=== PATIENT | male | born 1965 | race Caucasian/White ===

== ENCOUNTER 2017-01-19 19:16 | Emergency (ER) | payer OTHER ==
[~2017-01-19] VITALS: Ht 185.4 cm; Wt 158.8 kg
[2017-01-19] MEDS ORDERED: TOPR25TA PO (19:34)
[2017-01-19] MEDS ORDERED: JANU100T PO (19:34)
[2017-01-19] MEDS ORDERED: INVO300T PO (19:34)
[2017-01-19] MEDS ORDERED: PLAV75TA38 PO (19:34)
[2017-01-19] MEDS ORDERED: ALLE180T33 PO (19:34)
[2017-01-19] MEDS ORDERED: METF1000 PO (19:34)
[2017-01-19] MEDS ORDERED: ATOR1TAB19 PO (19:34)
[2017-01-19] MEDS ORDERED: ZETI10TA2 PO (19:34)
[2017-01-19] MEDS ORDERED: ECOT81TA5 PO (19:34)
[2017-01-19] MEDS ORDERED: LOSA100T36 PO (19:34)
[2017-01-19] MEDS ORDERED: KETOROLAC 30 MG/ML VIAL (J1885) IV ONE (20:15)
[2017-01-19 20:18] LABS: INR 0.94
[2017-01-19 20:28] LABS: ANION GAP 8 MEQ/L (8-16); BLOOD UREA NITROGEN 11 MG/DL (7-18); CALCIUM LEVEL 8.6 MG/DL (8.5-10.1); CARBON DIOXIDE LEVEL 28 MEQ/L (21-32); CHLORIDE LEVEL 102 MEQ/L (98-107); CREATININE FOR GFR 1.12 MG/DL (0.70-1.30); GLOMERULAR FILTRATION RATE > 60.0 (>56); GLUCOSE, FASTING 157 MG/DL (70-105); POTASSIUM SERUM 3.4 MEQ/L (3.5-5.1); SODIUM LEVEL 138 MEQ/L (136-145)
[2017-01-19 20:46] LABS: BASO % 0.7 % (0.0-1.0); EOS # 0.5 K/mm3 (0.0-0.50); EOS % 7.8 % (0.0-3.0); LARGE UNSTAINED CELL # 0.1 K/mm3 (0.0-0.4); LYMPH # 1.6 K/mm3 (1.5-4.5); LYMPH % 24.4 % (24.0-44.0); MEAN CORPUSCULAR HEMOGLOBIN 30.2 pg (27.0-33.0); MEAN CORPUSCULAR HGB CONC 33.8 g/dl (32.0-36.5); MEAN CORPUSCULAR VOLUME 89.4 fl (80.0-96.0); MONO # 0.4 K/mm3 (0.0-0.8); MONO % 6.5 % (0.0-5.0); NEUTROPHILS # 3.7 K/mm3 (1.8-7.7); NEUTROPHILS % 59.6 % (36.0-66.0); PLATELET COUNT, AUTOMATED 208 k/mm3 (150-450); RED CELL DISTRIBUTION WIDTH 13.3 % (11.5-14.5); WHITE BLOOD COUNT 6.2 K/mm3 (4.0-10.0)
[2017-01-19] MEDS ORDERED: NS 500 ML IV ONE (21:15)
[2017-01-19] MEDS ORDERED: ISOVUE-370 76% 100ML VIAL (Q9967) As Ordered ONE (21:21)
--- NOTE | 2017-01-19 22:10 | REPUSA ---
CT angiogram of the chest Clinical statement: Chest pain and shortness of breath. Technique: Multiple axial CT images were obtained from the thoracic inlet through the upper abdomen a fter a bolus administration of nonionic intravenous contrast. Coronal and sagittal reconstructions we re also obtained. Comparison: 11/06/2015. Findings: The pulmonary arteries are well-opacified with contrast, with no intraluminal filling defec ts to suggest embolism. The thoracic aorta is unremarkable. Thyroid gland is within normal limits. Th ere is no thoracic lymphadenopathy. There are no pericardial or pleural effusions. The lungs are brody r. Limited imaging of the upper abdomen is unremarkable. There are no suspicious osseous lesions. Impression: Unremarkable CT examination of the chest. No evidence of pulmonary embolism.
[2017-01-19] MEDS ORDERED: KETO10TAB PO (23:41)
[2017-01-19 23:54] VITALS: BP 155/83
--- NOTE | 2017-01-20 08:22 | REP ---
PA and lateral chest: Comparisons are 02/09/2016 and 11/06/2015. The study is also compared with the chest CT for this same date. The lung malin are clear. The cardiac size is normal The lonny, mediastinum, and bony thorax are unremarkable. Impression: Negative PA and lateral chest. There is no interval change. Signed by Valdo Davis MD 01/20/2017 08:14 A
--- NOTE | 2017-01-20 21:41 | ECGEPIP ---
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
== END 2017-01-20 | disposition home or self-care (01) ==
LOC: M ED 20:03
DX: R07.81 Pleurodynia (principal)
CPT/HCPCS: 71020; 71275; 80048; 82550; 82553; 85025; 85610; 85730; 93005; 96374; 99284; J1885; Q9967

== ENCOUNTER → 2017-02-11 | Outpatient (CLI) | payer OTHER ==
[~2017-02-11] MED LIST: ALLE180T33 PO; ATOR1TAB19 PO; ECOT81TA5 PO; INVO300T PO; JANU100T PO; KETO10TAB PO; LOSA100T36 PO; METF1000 PO; PLAV75TA38 PO; TOPR25TA PO; ZETI10TA2 PO
[2017-02-11 08:34] LABS: MEAN CORPUSCULAR HEMOGLOBIN 29.8 pg (27.0-33.0); MEAN CORPUSCULAR HGB CONC 33.1 g/dl (32.0-36.5); MEAN CORPUSCULAR VOLUME 90.1 fl (80.0-96.0); RED CELL DISTRIBUTION WIDTH 13.6 % (11.5-14.5); WHITE BLOOD COUNT 8.3 K/mm3 (4.0-10.0)
[2017-02-11 08:55] LABS: ALBUMIN 3.5 GM/DL (3.2-5.2); ALKALINE PHOSPHATASE 67 U/L (45-117); ALT/SGPT 36 U/L (12-78); ANION GAP 8 MEQ/L (8-16); AST/SGOT 19 U/L (15-37); BILIRUBIN,TOTAL 0.7 MG/DL (0.2-1.0); BLOOD UREA NITROGEN 12 MG/DL (7-18); CALCIUM LEVEL 8.5 MG/DL (8.5-10.1); CARBON DIOXIDE LEVEL 28 MEQ/L (21-32); CHLORIDE LEVEL 105 MEQ/L (98-107); CHOLESTEROL LEVEL 165 MG/DL (<200); CREATININE FOR GFR 0.94 MG/DL (0.70-1.30); GLOMERULAR FILTRATION RATE > 60.0 (>56); GLUCOSE, FASTING 148 MG/DL (70-105); POTASSIUM SERUM 4.1 MEQ/L (3.5-5.1); SODIUM LEVEL 141 MEQ/L (136-145); TRIGLYCERIDES LEVEL 147 MG/DL (<150)
== END ==
LOC: M LAB 07:56
PROVIDERS: ATTEND Nurse Practitioner Family
DX: I10 Essential (primary) hypertension (principal)

== ENCOUNTER 2017-05-18 14:33 | Emergency (ER) | payer OTHER ==
[~2017-05-18] VITALS: Ht 185.4 cm; Wt 159.1 kg
[~2017-05-18 14:33] MED LIST changes: -METF1000 PO; +METF10004 PO; +PLAV1TAB2 PO; -PLAV75TA38 PO; -ZETI10TA2 PO; +ZETI10TA30 PO
[2017-05-18] MEDS ORDERED: TRIA0.022 (14:43)
[2017-05-18] MEDS ORDERED: PROAAER10 (14:43)
[2017-05-18] MEDS ORDERED: ASPI325T24 (14:43)
[2017-05-18] MEDS ORDERED: NS 1,000 ML IV ONE (15:30)
[2017-05-18 15:50] LABS: INR 0.94
[2017-05-18 15:53] LABS: BASO # 0.1 K/mm3 (0.0-0.2); BASO % 0.9 % (0.0-1.0); EOS # 0.9 K/mm3 (0.0-0.50); EOS % 6.9 % (0.0-3.0); LARGE UNSTAINED CELL # 0.2 K/mm3 (0.0-0.4); LARGE UNSTAINED CELL % 1.1 % (0.0-4.0); LYMPH % 13.5 % (24.0-44.0); MEAN CORPUSCULAR HEMOGLOBIN 30.4 pg (27.0-33.0); MEAN CORPUSCULAR HGB CONC 33.3 g/dl (32.0-36.5); MEAN CORPUSCULAR VOLUME 91.3 fl (80.0-96.0); MONO # 0.6 K/mm3 (0.0-0.8); MONO % 4.1 % (0.0-5.0); NEUTROPHILS # 9.9 K/mm3 (1.8-7.7); NEUTROPHILS % 73.4 % (36.0-66.0); PLATELET COUNT, AUTOMATED 323 k/mm3 (150-450); RED CELL DISTRIBUTION WIDTH 13.7 % (11.5-14.5); WHITE BLOOD COUNT 13.4 K/mm3 (4.0-10.0)
[2017-05-18 16:08] LABS: ALBUMIN 3.9 GM/DL (3.2-5.2); ALBUMIN/GLOBULIN RATIO 1.18 (1.00-1.93); ALKALINE PHOSPHATASE 69 U/L (45-117); ALT/SGPT 28 U/L (12-78); ANION GAP 9 MEQ/L (8-16); AST/SGOT 13 U/L (15-37); BILIRUBIN,DIRECT 0.1 MG/DL (0.0-0.2); BILIRUBIN,TOTAL 0.5 MG/DL (0.2-1.0); BLOOD UREA NITROGEN 14 MG/DL (7-18); CALCIUM LEVEL 9.3 MG/DL (8.5-10.1); CARBON DIOXIDE LEVEL 26 MEQ/L (21-32); CHLORIDE LEVEL 108 MEQ/L (98-107); CREATININE FOR GFR 1.07 MG/DL (0.70-1.30); GLOMERULAR FILTRATION RATE > 60.0 (>56); GLUCOSE, FASTING 145 MG/DL (70-105); POTASSIUM SERUM 4.4 MEQ/L (3.5-5.1); SODIUM LEVEL 143 MEQ/L (136-145); TOTAL PROTEIN 7.2 GM/DL (6.4-8.2)
[2017-05-18] MEDS ORDERED: ISOVUE-370 76% 100ML VIAL (Q9967) As Ordered ONE (16:47)
[2017-05-18 18:19] VITALS: BP 104/66
--- NOTE | 2017-05-18 18:27 | REP ---
CT ABDOMEN AND PELVIS WITH CONTRAST: HISTORY: Rectal bleeding. CONTRAST: Isovue-370, 100 mL. The liver, gallbladder, pancreas, spleen, adrenal glands and kidneys are normal in appearance. There is no mass, adenopathy or free fluid. The visualized lungs are clear. Normal CT abdomen. CT pelvis: The prostate gland and urinary bladder are normal in appearance. There is no mass, adenopathy or free fluid. A small right inguinal hernia containing fat is present. Degenerative change is present in the lumbar spine. IMPRESSION: Small right inguinal hernia. Signed by Ariel Cameron MD 05/18/2017 06:54 P
== END 2017-05-18 18:24 | disposition home or self-care (01) ==
LOC: M ED 14:33
DX: K62.5 Hemorrhage of anus and rectum (principal); I25.10 Atherosclerotic heart disease of native coronary artery without angina pectoris; I25.2 Old myocardial infarction; E78.4 Other hyperlipidemia; E11.9 Type 2 diabetes mellitus without complications; I10 Essential (primary) hypertension
CPT/HCPCS: 74177; 80048; 80076; 81001; 83605; 83690; 85025; 85610; 85730; 86850; 86900; 86901; 87507; 99283; Q9967

== ENCOUNTER 2017-06-27 19:59 | Emergency (ER) | payer OTHER ==
[~2017-06-27] VITALS: Ht 188 cm; Wt 156.8 kg
[~2017-06-27 19:59] MED LIST changes: +ASPI325T24; +PROAAER10; +TRIA0.022
[2017-06-27] MEDS ORDERED: ASPIRIN 325 MG TAB PO ONE (20:30)
[2017-06-27] MEDS ORDERED: MORPHINE 4 MG/ML 1ML SYRINGE IV ONE (20:30)
[2017-06-27 20:55] LABS: INR 0.95
[2017-06-27 21:16] LABS: ANION GAP 5 MEQ/L (8-16); BLOOD UREA NITROGEN 10 MG/DL (7-18); CALCIUM LEVEL 8.6 MG/DL (8.5-10.1); CARBON DIOXIDE LEVEL 29 MEQ/L (21-32); CHLORIDE LEVEL 106 MEQ/L (98-107); CREATININE FOR GFR 1.07 MG/DL (0.70-1.30); GLOMERULAR FILTRATION RATE > 60.0 (>56); GLUCOSE, FASTING 133 MG/DL (70-105); POTASSIUM SERUM 3.8 MEQ/L (3.5-5.1); SODIUM LEVEL 140 MEQ/L (136-145)
[2017-06-27] MEDS ORDERED: NS 500 ML IV ONE (21:30)
[2017-06-27 21:34] LABS: ADD MANUAL DIFFER YES; MEAN CORPUSCULAR HEMOGLOBIN 26.1 pg (27.0-33.0); MEAN CORPUSCULAR HGB CONC 31.4 g/dl (32.0-36.5); MEAN CORPUSCULAR VOLUME 83.3 fl (80.0-96.0); PLATELET COUNT, AUTOMATED 334 k/mm3 (150-450); RED CELL DISTRIBUTION WIDTH 13.7 % (11.5-14.5); WHITE BLOOD COUNT 10.1 K/mm3 (4.0-10.0)
[2017-06-27] MEDS ORDERED: ISOVUE-370 76% 100ML VIAL (Q9967) As Ordered ONE (21:36)
--- NOTE | 2017-06-27 22:10 | REPUSA ---
CT angiogram of the chest Clinical statement: Chest pain and shortness of breath. Technique: Multiple axial CT images were obtained from the thoracic inlet through the upper abdomen a fter a bolus administration of nonionic intravenous contrast. Coronal and sagittal reconstructions we re also obtained. No comparison is available. Findings: The pulmonary arteries are well-opacified with contrast, with no intraluminal filling defec ts to suggest embolism. The thoracic aorta is unremarkable. Thyroid gland is within normal limits. Th ere is no enlarged thoracic lymphadenopathy, although numerous subcentimeter lymph nodes are seen wit hin the mediastinum. There are no pericardial or pleural effusions. The lungs are clear. Limited imag ing of the upper abdomen is unremarkable. There are no suspicious osseous lesions. Impression: Unremarkable CT examination of the chest. No evidence of pulmonary embolism.
[2017-06-27 22:31] LABS: EOSINOPHILS 5 % (0-5)
[2017-06-27 22:35] LABS: HYPOCHROMASIA 1+
[2017-06-27 22:36] LABS: POLYCHROMASIA 2+
[2017-06-27 22:37] LABS: NUCLEATED RED BLOOD CELL 1 % (0-0)
[2017-06-28 02:11] VITALS: BP 128/60
--- NOTE | 2017-06-28 07:43 | REP ---
Clinical: Chest pain . Comparison: 01/19/2017 . Findings: The mediastinum and cardiac silhouette are stable and within normal limits for portable technique. The lung malin are clear without acute consolidation, effusion, or pneumothorax. Skeletal structures are intact. Impression: No acute cardiopulmonary process appreciated. Signed by Federico Urena MD 06/28/2017 07:35 A
--- NOTE | 2017-06-28 19:26 | ECGEPIP ---
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
--- NOTE | 2017-06-28 19:29 | ECGEPIP ---
Stationary ECG Study 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
== END 2017-06-28 02:14 | disposition home or self-care (01) ==
LOC: M ED 19:59
DX: R07.81 Pleurodynia (principal); Z87.891 Personal history of nicotine dependence; I25.10 Atherosclerotic heart disease of native coronary artery without angina pectoris; I10 Essential (primary) hypertension; E78.4 Other hyperlipidemia
CPT/HCPCS: 71010; 71275; 80048; 82550; 82553; 85025; 85610; 85730; 93005; 99285; Q9967

== ENCOUNTER → 2017-09-27 | Outpatient (CLI) | payer OTHER ==
[2017-09-27 08:13] LABS: MEAN CORPUSCULAR HEMOGLOBIN 20.6 pg (27.0-33.0); MEAN CORPUSCULAR HGB CONC 27.8 g/dl (32.0-36.5); MEAN CORPUSCULAR VOLUME 74.1 fl (80.0-96.0); PLATELET COUNT, AUTOMATED 305 10^3/uL (150-450); RED CELL DISTRIBUTION WIDTH 17.7 % (11.5-14.5); WHITE BLOOD COUNT 8.6 10^3/uL (4.0-10.0)
[2017-09-27 08:35] LABS: ALBUMIN 3.7 GM/DL (3.2-5.2); ALBUMIN/GLOBULIN RATIO 1.06 (1.00-1.93); ALKALINE PHOSPHATASE 73 U/L (45-117); ALT/SGPT 20 U/L (12-78); ANION GAP 8 MEQ/L (8-16); AST/SGOT 11 U/L (7-37); BILIRUBIN,TOTAL 0.5 MG/DL (0.2-1.0); BLOOD UREA NITROGEN 16 MG/DL (7-18); CALCIUM LEVEL 8.1 MG/DL (8.5-10.1); CARBON DIOXIDE LEVEL 24 MEQ/L (21-32); CHLORIDE LEVEL 109 MEQ/L (98-107); CHOLESTEROL LEVEL 151 MG/DL (<200); CREATININE FOR GFR 1.04 MG/DL (0.70-1.30); GLOMERULAR FILTRATION RATE > 60.0 (>56); GLUCOSE, FASTING 160 MG/DL (70-105); POTASSIUM SERUM 4.2 MEQ/L (3.5-5.1); SODIUM LEVEL 141 MEQ/L (136-145); TOTAL PROTEIN 7.2 GM/DL (6.4-8.2); TRIGLYCERIDES LEVEL 89 MG/DL (<150)
== END ==
LOC: M LAB 07:43
PROVIDERS: ATTEND Nurse Practitioner Family
DX: E11.9 Type 2 diabetes mellitus without complications (principal); E78.2 Mixed hyperlipidemia

== ENCOUNTER → 2018-06-07 | Outpatient (CLI) | payer OTHER ==
[2018-06-07 07:49] LABS: HEMATOCRIT 36.2 % (42.0-52.0); HEMOGLOBIN 10.3 g/dl (13.5-17.5); MEAN CORPUSCULAR HEMOGLOBIN 20.2 pg (27.0-33.0); MEAN CORPUSCULAR HGB CONC 28.5 g/dl (32.0-36.5); PLATELET COUNT, AUTOMATED 293 10^3/uL (150-450); RED CELL DISTRIBUTION WIDTH 17.4 % (11.5-14.5); WHITE BLOOD COUNT 8.5 10^3/uL (4.0-10.0)
[2018-06-07 08:22] LABS: ALBUMIN 3.5 GM/DL (3.2-5.2); ALBUMIN/GLOBULIN RATIO 0.97 (1.00-1.93); ALKALINE PHOSPHATASE 62 U/L (45-117); ALT/SGPT 20 U/L (12-78); ANION GAP 7 MEQ/L (8-16); AST/SGOT 10 U/L (7-37); BILIRUBIN,TOTAL 0.6 MG/DL (0.2-1.0); BLOOD UREA NITROGEN 14 MG/DL (7-18); CALCIUM LEVEL 8.4 MG/DL (8.5-10.1); CARBON DIOXIDE LEVEL 27 MEQ/L (21-32); CHLORIDE LEVEL 108 MEQ/L (98-107); CHOLESTEROL LEVEL 144 MG/DL (<200); GLOMERULAR FILTRATION RATE > 60.0 (>56); GLUCOSE, FASTING 139 MG/DL (70-100); HDL CHOLESTEROL 59 MG/DL (>40); LDL CHOLESTEROL 67.6 MG/DL (<100); NON-HDL-C 85 MG/DL; POTASSIUM SERUM 4.3 MEQ/L (3.5-5.1); PROSTATIC SPECIFIC AG MONITOR 0.38 NG/ML (< 4.0); SODIUM LEVEL 142 MEQ/L (136-145); TOTAL PROTEIN 7.1 GM/DL (6.4-8.2); TRIGLYCERIDES LEVEL 87 MG/DL (<150)
== END ==
LOC: M LAB 07:26
DX: E78.2 Mixed hyperlipidemia (principal); E11.9 Type 2 diabetes mellitus without complications; Z12.5 Encounter for screening for malignant neoplasm of prostate

== ENCOUNTER → 2018-10-24 | Outpatient (CLI) | payer OTHER ==
[~2018-10-24] MED LIST changes: -ASPI325T24; +ASPI325T25; +CALCTAB29 PO; -LOSA100T36 PO; +LOSA100T50 PO; +MULT1TAB10 PO; -PROAAER10; +PROAAER10 INH; -TOPR25TA PO; +TOPR25TA13 PO; +VITA500T PO
[2018-10-24 13:19] LABS: BASO # 0.1 10^3/uL (0.0-0.2); BASO % 0.9 % (0.0-1.0); EOS # 0.8 10^3/uL (0.0-0.50); EOS % 8.6 % (0.0-3.0); HEMATOCRIT 45.3 % (42.0-52.0); HEMOGLOBIN 14.4 g/dl (13.5-17.5); LYMPH # 1.8 10^3/uL (1.5-4.5); LYMPH % 21.1 % (24.0-44.0); MEAN CORPUSCULAR HEMOGLOBIN 28.4 pg (27.0-33.0); MEAN CORPUSCULAR HGB CONC 31.8 g/dl (32.0-36.5); MEAN CORPUSCULAR VOLUME 89.3 fl (80.0-96.0); MONO # 0.6 10^3/uL (0.0-0.8); MONO % 6.6 % (0.0-5.0); NEUTROPHILS # 5.5 10^3/uL (1.8-7.7); NEUTROPHILS % 62.6 % (36.0-66.0); PLATELET COUNT, AUTOMATED 275 10^3/uL (150-450); RED BLOOD COUNT 5.07 10^6/uL (4.30-6.10); WHITE BLOOD COUNT 8.7 10^3/uL (4.0-10.0)
[2018-10-24 13:43] LABS: PERCENT SATURATION 70.8 % (19.7-50.0)
[2018-10-24 13:51] LABS: FOLATE 15.5 NG/ML
== END ==
LOC: M LAB 11:57
PROVIDERS: ATTEND Internal Medicine Gastroenterology
DX: K62.5 Hemorrhage of anus and rectum (principal)

== ENCOUNTER 2018-11-01 09:44 | Day surgery (SDC) | payer OTHER ==
[~2018-11-01] VITALS: Ht 185.4 cm; Wt 151.4 kg
[~2018-11-01 09:44] MED LIST changes: +NS 1,000 ML IV ONE
[2018-11-01] MEDS ORDERED: fentaNYL 100 MCG/2 ML INJECTION (J3010) As Ordered ONE (10:55)
[2018-11-01] MEDS ORDERED: LIDOCAINE 2% INJ 100 MG/5 ML SDV (FOR ANES.) As Ordered ONE (10:55)
[2018-11-01] MEDS ORDERED: PROPOFOL 200 MG/20 ML VIAL As Ordered ONE ×2 (10:55→11:50)
--- NOTE | 2018-11-01 12:11 | ROOR ---
Patient Name: Sher Hines Procedure Date: 11/01/2018 11:17 AM Date of : 1965 Age: 53 Room: [facility] Gender: Male Note Status: Finalized Procedure: Upper GI endoscopy Indications: Iron deficiency anemia Providers: Blaine Swan MD Referring MD: GARY GRIFFIN MD Requesting Provider: Medicines: Monitored Anesthesia Care Complications: No immediate complications. Procedure: Pre-Anesthesia Assessment: - Prior to the procedure, a History and Physical was performed, and patient medications and allergies were reviewed. The patient is competent. The risks and benefits of the procedure and the sedation options and risks were discussed with the patient. All questions were answered and informed consent was obtained. Patient identification and proposed procedure were verified by the physician, the nurse and the anesthesiologist in the procedure room. Mental Status Examination: alert and oriented. Airway Examination: normal oropharyngeal airway and neck mobility. Respiratory Examination: clear to auscultation. CV Examination: normal. Prophylactic Antibiotics: The patient does not require prophylactic antibiotics. Prior Anticoagulants: The patient has taken Plavix (clopidogrel), last dose was 7 days prior to procedure. ASA Grade Assessment: III - A patient with severe systemic disease. After reviewing the risks and benefits, the patient was deemed in satisfactory condition to undergo the procedure. The anesthesia plan was to use monitored anesthesia care (MAC). Immediately prior to administration of medications, the patient was re-assessed for adequacy to receive sedatives. The heart rate, respiratory rate, oxygen saturations, blood pressure, adequacy of pulmonary ventilation, and response to care were monitored throughout the procedure. The physical status of the patient was re-assessed after the procedure. The Endoscope was introduced through the mouth, and advanced to the second part of duodenum. The upper GI endoscopy was accomplished without difficulty. The patient tolerated the procedure well. Findings: The examined esophagus was normal. Diffuse moderate inflammation characterized by erythema, friability and granularity was found in the gastric antrum. Biopsies were taken with a cold forceps for Helicobacter pylori testing. Verification of patient identification for the specimen was done by the physician and nurse using the patient's name, date and medical record number. Estimated blood loss was minimal. The duodenal bulb and second portion of the duodenum were normal. Biopsies were taken with a cold forceps for histology. Impression: - Normal esophagus. - Gastritis. Biopsied. - Normal duodenal bulb and second portion of the duodenum. Biopsied. Recommendation: - Patient has a contact number available for emergencies. The signs and symptoms of potential delayed complications were discussed with the patient. Return to normal activities tomorrow. Written discharge instructions were provided to the patient. - Resume previous diet. - Continue present medications. - Await pathology results. - Based on the biopsy results you will receive a phone call from GI clinic in 2-3 weeks to review the pathology results AND/OR your results will be faxed to your Primary care physician. - Return to primary care physician. Blaine Swan MD Blaine Swan MD 11/01/2018 12:10:46 PM This report has been signed electronically. Number of Addenda: 0 Note Initiated On: 11/01/2018 11:17 AM Estimated Blood Loss: Estimated blood loss was minimal.
--- NOTE | 2018-11-01 12:19 | ROOR ---
Patient Name: Sher Hines Procedure Date: 11/01/2018 11:18 AM Date of : 1965 Age: 53 Room: [facility] Gender: Male Note Status: Finalized Procedure: Colonoscopy Indications: Hematochezia, Iron deficiency anemia Providers: Blaine Swan MD Referring MD: GARY GRIFFIN MD Requesting Provider: Medicines: Monitored Anesthesia Care Complications: No immediate complications. Procedure: Pre-Anesthesia Assessment: - Prior to the procedure, a History and Physical was performed, and patient medications and allergies were reviewed. The patient is competent. The risks and benefits of the procedure and the sedation options and risks were discussed with the patient. All questions were answered and informed consent was obtained. Patient identification and proposed procedure were verified by the physician, the nurse and the anesthesiologist in the procedure room. Mental Status Examination: alert and oriented. Airway Examination: normal oropharyngeal airway and neck mobility. Respiratory Examination: clear to auscultation. CV Examination: normal. Prophylactic Antibiotics: The patient does not require prophylactic antibiotics. Prior Anticoagulants: The patient has taken no previous anticoagulant or antiplatelet agents. ASA Grade Assessment: III - A patient with severe systemic disease. After reviewing the risks and benefits, the patient was deemed in satisfactory condition to undergo the procedure. The anesthesia plan was to use monitored anesthesia care (MAC). Immediately prior to administration of medications, the patient was re-assessed for adequacy to receive sedatives. The heart rate, respiratory rate, oxygen saturations, blood pressure, adequacy of pulmonary ventilation, and response to care were monitored throughout the procedure. The physical status of the patient was re-assessed after the procedure. The Colonoscope was introduced through the anus and advanced to the terminal ileum, with identification of the appendiceal orifice and IC valve. The colonoscopy was performed without difficulty. The patient tolerated the procedure well. The quality of the bowel preparation was good. The terminal ileum, ileocecal valve, appendiceal orifice, and rectum were photographed. Scope insertion time was 4 minutes. Scope withdrawal time was 10 minutes. The total duration of the procedure was 14 minutes. Findings: The perianal and digital rectal examinations were normal. The terminal ileum appeared normal. A 10 mm polyp was found in the proximal transverse colon. The polyp was pedunculated. The polyp was removed with a hot snare. Resection and retrieval were complete. Verification of patient identification for the specimen was done by the physician and nurse using the patient's name, date and medical record number. Estimated blood loss was minimal. An infiltrative and ulcerated partially obstructing large mass was found in the distal transverse colon. The mass was circumferential. The mass measured five cm in length. No bleeding was present. This was biopsied with a cold forceps for histology. Area was tattooed with an injection of Delilah ink. No additional abnormalities were found on retroflexion. Impression: - The examined portion of the ileum was normal. - One 10 mm polyp in the proximal transverse colon, removed with a hot snare. Resected and retrieved. - Likely malignant partially obstructing tumor in the distal transverse colon. Biopsied. Tattooed. Recommendation: - Patient has a contact number available for emergencies. The signs and symptoms of potential delayed complications were discussed with the patient. Return to normal activities tomorrow. Written discharge instructions were provided to the patient. - Soft diet for 1 day, then advance as tolerated to resume previous diet. - Continue present medications. - Miralax 1 capful (17 grams) in 8 ounces of water PO daily. - Post-Procedure Resumption of Antiplatelet Medications: Restart aspirin today 81 mg PO daily. - Resume Plavix (clopidogrel) at prior dose tomorrow. Refer to primary physician for further adjustment of therapy. - Repeat colonoscopy in 1 year per protocol. - Based on the biopsy results you will receive a phone call from GI clinic in 2-3 weeks to review the pathology results AND/OR your results will be faxed to your Primary care physician. - Telephone primary care physician. Blaine Swan MD Blaine Swan MD 11/01/2018 12:19:27 PM This report has been signed electronically. Number of Addenda: 0 Note Initiated On: 11/01/2018 11:18 AM Estimated Blood Loss: Estimated blood loss was minimal.
[2018-11-01 12:33] VITALS: BP 155/96
== END 2018-11-01 12:44 | disposition home or self-care (01) ==
LOC: M OPP 09:44
PROVIDERS: ATTEND Internal Medicine Gastroenterology
DX: K92.1 Melena (principal); D50.9 Iron deficiency anemia, unspecified; D12.3 Benign neoplasm of transverse colon; D49.0 Neoplasm of unspecified behavior of digestive system; K29.70 Gastritis, unspecified, without bleeding; E11.9 Type 2 diabetes mellitus without complications; I10 Essential (primary) hypertension; E78.5 Hyperlipidemia, unspecified; G47.30 Sleep apnea, unspecified; Z83.3 Family history of diabetes mellitus; Z82.49 Family history of ischemic heart disease and other diseases of the circulatory system; Z98.890 Other specified postprocedural states; Z79.84 Long term (current) use of oral hypoglycemic drugs; Z79.899 Other long term (current) drug therapy; Z88.8 Allergy status to other drugs, medicaments and biological substances
CPT/HCPCS: 43239; 45380; 45385; 88305; J3010

== ENCOUNTER → 2018-11-08 | Outpatient (CLI) | payer OTHER ==
[~2018-11-08] MED LIST changes: +ASPI1TAB PO; +FARX1TAB3 PO; +NORCOTAB PO; -NS 1,000 ML IV ONE
[2018-11-08 11:06] LABS: ALBUMIN 3.8 GM/DL (3.2-5.2); ALT/SGPT 22 U/L (12-78); BILIRUBIN,DIRECT 0.1 MG/DL (0.0-0.2); BILIRUBIN,TOTAL 0.4 MG/DL (0.2-1.0); BLOOD UREA NITROGEN 9 MG/DL (7-18); CALCIUM LEVEL 8.7 MG/DL (8.5-10.1); CARBON DIOXIDE LEVEL 25 MEQ/L (21-32); CHLORIDE LEVEL 107 MEQ/L (98-107); CREATININE FOR GFR 0.89 MG/DL (0.70-1.30); GLOMERULAR FILTRATION RATE > 60.0 (>56); GLUCOSE, FASTING 129 MG/DL (70-100); POTASSIUM SERUM 4.2 MEQ/L (3.5-5.1); SODIUM LEVEL 141 MEQ/L (136-145); TOTAL PROTEIN 6.8 GM/DL (6.4-8.2)
== END ==
LOC: M LAB 09:47
PROVIDERS: ATTEND Internal Medicine Gastroenterology
DX: C18.4 Malignant neoplasm of transverse colon (principal)

== ENCOUNTER → 2018-11-14 | Outpatient (CLI) | payer OTHER ==
[~2018-11-14] MED LIST changes: -ASPI1TAB PO; -FARX1TAB3 PO; +GASTROGRAFIN SOLUTION 30ML (Q9963) As Ordered ONE; +ISOVUE-370 76% 100ML VIAL (Q9967) As Ordered ONE; -NORCOTAB PO
--- NOTE | 2018-11-14 10:43 | REP ---
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 Technique: Axial contrast enhanced images from the lung bases to the pubic symphysis using oral and 100 ml Isovue 370 intravenous contrast material with delayed images of the abdomen as well as coronal and sagittal re-formations. Comparison: 05/18/2017. Findings: Lung bases demonstrate linear scarring at the lingula. Visualized heart and pericardium are normal. Hepatomegaly is appreciated without focal hepatic lesion. Spleen, pancreas, gallbladder, bilateral adrenal glands and kidneys are normal. The enteric system is without obstruction or acute inflammatory process. There is a short segment of circumferential mural thickening involving the distal transverse colon (images [id number]) which may be related to the given history of malignancy at the. No obvious pericolonic/mesenteric adenopathy is appreciated. Pelvis demonstrates collapsed normal bladder and age appropriate prostate/seminal vesicles. No ascites. No obvious intraperitoneal or retroperitoneal adenopathy. No free air. Abdominal aorta and vasculature without aneurysm. Small fat containing right inguinal hernia noted. Musculoskeletal structures demonstrate age-related changes without focal osseous abnormality. Impression: 1. Short segment of mural thickening involving the distal transverse colon possibly consistent with the given history of neoplasm. No associated pericolonic/mesenteric infiltration or adenopathy noted. No obvious evidence for metastatic disease. 2. No ascites, inflammatory changes, or adenopathy. 3. Hepatomegaly. Electronically Signed by Federico Urena MD 11/14/2018 10:34 A
--- NOTE | 2018-11-14 10:46 | REP ---
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 Technique: Axial contrast enhanced images from the thoracic inlet to the upper abdomen with coronal and sagittal re-formations. Comparison: 06/27/2017. Findings: Linear scarring at the lingula again identified. The bilateral lung malin are otherwise well aerated and symmetric. No focal consolidation, nodule or mass lesion identified. No pleural effusion. No pneumothorax. Tracheobronchial tree is patent. No obvious significant axillary, hilar or mediastinal adenopathy identified. Atherosclerotic changes to the thoracic aorta and coronary arteries noted without aortic aneurysm, cardiomegaly or pericardial effusion. Surrounding musculoskeletal structures demonstrate age-related changes without focal osseous abnormality. Impression: 1. Chronic linear scarring at the lingula. 2. No acute mediastinal or pleuroparenchymal process. No evidence for metastatic disease. 3. Atherosclerotic changes to the coronary arteries and thoracic aorta. Electronically Signed by Federico Urena MD 11/14/2018 10:37 A
== END ==
LOC: M RAD 08:20
PROVIDERS: ATTEND Internal Medicine Gastroenterology
DX: C18.4 Malignant neoplasm of transverse colon (principal); I25.10 Atherosclerotic heart disease of native coronary artery without angina pectoris; I70.0 Atherosclerosis of aorta; R16.0 Hepatomegaly, not elsewhere classified
CPT/HCPCS: 71260; 74177; Q9963; Q9967

== ENCOUNTER 2018-12-02 09:18 | Inpatient (IN) | payer OTHER ==
[~2018-12-02] VITALS: Ht 188 cm; Wt 152.0 kg
[~2018-12-02 09:18] MED LIST changes: +ALVIMOPAN 12 MG CAPSULE (ENTEREG) PO ONE; +ASPI1TAB PO; +FARX1TAB3 PO; -GASTROGRAFIN SOLUTION 30ML (Q9963) As Ordered ONE; +HEPARIN SOD (PORCINE) 5000 UNITS/ML VIAL SQ ONE; -ISOVUE-370 76% 100ML VIAL (Q9967) As Ordered ONE; +LR 1,000 ML IV ONE; +cefoTEtan DISODIUM 2 GM in D5W MINI-BAG PLUS 50 ML IV ONE; +metroNIDAZOLE 500 MG in APPROPRIATE DILUENT 1 EA IV ONE
[2018-12-02] MEDS ORDERED: METOCLOPRAMIDE INJ 10MG/2ML VIAL (J2765) As Ordered ONE (10:14)
[2018-12-02] MEDS ORDERED: LIDOCAINE 2% INJ 100 MG/5 ML SDV (FOR ANES.) As Ordered ONE (10:14)
[2018-12-02] MEDS ORDERED: ROCURONIUM BROMIDE 50 MG/5 ML VIAL As Ordered ONE ×3 (10:14→14:19)
[2018-12-02] MEDS ORDERED: PROPOFOL 200 MG/20 ML VIAL As Ordered ONE (10:14)
[2018-12-02] MEDS ORDERED: ONDANSETRON 4MG/2ML VIAL (J2405) As Ordered ONE (10:14)
[2018-12-02] MEDS ORDERED: MIDAZOLAM INJ 2 MG/2 ML VIAL (J2250) As Ordered ONE (10:15)
[2018-12-02] MEDS ORDERED: fentaNYL 250 MCG/5 ML INJECTION (J3010) As Ordered ONE (10:15)
[2018-12-02] MEDS ORDERED: LIDOCAINE 1% SDV INJ 30 ML VIAL As Ordered ONE (11:07)
[2018-12-02] MEDS ORDERED: BUPIVACAINE HCL 0.25% 30 ML VIAL As Ordered ONE (11:08)
[2018-12-02] MEDS ORDERED: HYDROmorphone HCL 2 MG/ML 1ML VIAL (J1170) As Ordered ONE (11:54)
[2018-12-02] MEDS ORDERED: LABETALOL HCL 100 MG/20 ML VIAL As Ordered ONE (12:51)
[2018-12-02] MEDS ORDERED: SUCCINYLCHOLINE 100 MG/5 ML SYRINGE (J0330) As Ordered ONE (12:51)
[2018-12-02] MEDS ORDERED: SUGAMMADEX SODIUM 500 MG/5 ML VIAL (BRIDION) As Ordered ONE (16:47)
--- NOTE | 2018-12-02 17:13 | POST-OPPD ---
Postoperative Procedure Note Date Of Procedure: Dec 02, 2018 Time Of Procedure: 12:00 PREOPERATIVE DIAGNOSIS: Transverse colon adenocarcinoma POSTOPERATIVE DIAGNOSIS: Transverse colon adenocarcinoma FINDINGS: Adenocarcinoma of transverse colon noted. PROCEDURE: Laparoscopic transverse colon adenocarcinoma removal. SURGEON: Dr. Hemphill SUPERVISOR SANDING: Dr. Pimentel and Dr. Gio Iverson(PGY-1) ANESTHESIA: General anesthesia SPECIMENS: Transverse colon with adenocarcinoma ESTIMATED BLOOD LOSS: 50ml REPLACED: None COMPLICATIONS: None GIO IVERSON DO Dec 02, 2018 17:13
[2018-12-02] MEDS ORDERED: GLUCOSE 4 GM CHEW TABLET PO PRN (17:30)
[2018-12-02] MEDS ORDERED: ONDANSETRON 4MG/2ML VIAL (J2405) IV PRN (17:30)
[2018-12-02] MEDS ORDERED: MORPHINE 4 MG/ML 1ML VIAL/SYRINGE (J2270) IV PRN (17:30)
[2018-12-02] MEDS ORDERED: ACETAMINOPHEN TAB 650MG DOSE (2X325MG) PO PRN (17:30)
[2018-12-02] MEDS ORDERED: NORCO, ANEXSIA 5/325MG TABLET (HYDROcodone/ACETAMINOPHEN) PO PRN ×2 (17:30)
[2018-12-02] MEDS ORDERED: GLUCAGON FOR INJ 1 MG VIAL (J1610) SC PRN (17:30)
[2018-12-02] MEDS ORDERED: DEXTROSE 50% 50 ML SYRINGE IV PRN (17:30)
--- NOTE | 2018-12-02 17:36 | ROOPDOC ---
[facility] Report Of Operation Report of Operation DATE OF PROCEDURE: 12/02/18 PREPROCEDURE DIAGNOSES: Adenocarcinoma of transverse colon. POSTPROCEDURE DIAGNOSES: Same PROCEDURE: Laparoscopic Assisted Transverse Colectomy, Takedown of splenic flexure. SURGEON: Riaz Hemphill MD TERRAZZO ROLLER: MD Inez Hazel DO (PGY-1) Dr. Pimentel provided assistance with helping me adequately visualize the intra- abdominal structures driving the laparoscope, retracting bowel was forming and assisting me in the general proceedings of the surgery including resection and anastomosis. ANESTHESIA: General Anesthesia. ESTIMATED BLOOD LOSS: Approximately 50 mL. COMPLICATIONS: none. REMARKS: The tumor was found at the distal transverse colon. Extent of fat was marked both proximally and distally with Delilah ink tattoo during his colonos copy. No metastatic deposits noted on patient's liver surface or peritoneal surfaces.. PROCEDURE NOTE: Bulky distal transverse colon malignancy. DESCRIPTION OF PROCEDURE: Patient was brought to the operating room, transferred to the procedure table. [employer] clients each was started. He was placed on a lithotomy position. Gandhi catheter was placed for urine output monitoring. Sequential compression device replacement will start extremities were DVT prophylaxis. Patient received 5000 units of heparin subcu properly for chemical DVT prophylaxis. He was given Cefotetan 2 g IV and metronidazole 500 mg IV for surgical wound prophylaxis. A surgical timeout was performed prior to the start of the surgery I began by creating a small incision above the umbilicus. A Veress needle was inserted and intra-abdominal placement confirmed with saline drop technique. Using the same incision a 5 mm port was placed under direct vision by a laparoscope. The incision site was inspected for injury and none was found. Survey of the abdomen shows mildly enlarged liver but smooth in contour. No nodularities or evidence of malignancies found. No peritoneal deposits were found. Delilah ink spackling noted at the omentum. He was placed on a reverse Trendelenburg position tilted towards the right side. A 5 mm port was placed over the patient's right lower quadrant area and right upper quadrant area under direct vision. The omentum was retracted superiorly and the tattoo markings noted towards the patient's left upper quadrant area on the distal transverse colon. Two tattoo markings noted proximally and distally and a hard, bulky intraluminal mass palpated in between. A fourth 5 mm port was placed in the patient's left lower quadrant area. The location of the lesion is on the patient's distal transverse colon close to the patient's splenic flexure. We began the procedure by dividing the gastrocolic ligament starting at the midline going towards the left side to the patient's splenic flexure. A lateral to medial approach was then used to open up the patient's line of [place]t on the left side starting from the mid descending colon going upwards towards the splenic flexure. As this to lines of incision was approached restarted taking down the splenic flexure attachments to the abdominal wall and likewise to the spleen and to the stomach to pull the splenic flexure towards the medial side. The dissection was continued until the splenic flexure was fully taken down. I assessed the area of resection and extended the lateral dissection towards the sigmoid colon. Area of distal transection was selected. A window was created in the colic mesentery underneath this. The right lower quadrant 5 mm port was converted to a 12 mm port. Using a echelon 60 mm stapler with a green load the descending colon was divided. The course of the mesentery was scored and divided with the ligature device. As we approached the root of the branch of the left colic artery going towards the splenic flexure this was divided with a vascular load of the echelon stapler. In a similar fashion the site of transection proximally beyond the tattooed area was chosen and marked with hemoclips. I further divided the gastrocolic ligament beyond this area to make sure that this portion comes down towards the midline for anastomosis. The transverse colon was lifted up the mesentery was taken down from the chosen Transection going towards the left side and eventually the whole mesocolon was divided. At this point the abdomen was deflated the umbilical port site was removed and I made about a 4 cm periumbilical vertical incision taking this down through the subcutaneous tissue with which was deep and open up the fascia under direct vision. A Machinima wound retractor was placed. The colon was delivered into the wound and pulled up until we got to the chosen area of transection. The colon was divided with the echelon stapler with a green load. We further cleaned up t he colon off the surrounding tissue including the omentum and mesocolon mesentery to be able to pull this up beyond lower abdominal incision. The distal portion was likewise delivered into the wound and a [id number] colocolic anastomosis was performed using a 75 mm stapler with a blue load. I inspected the anastomosis intraluminally for bleeding likewise adequacy of the anastomosis externally by palpation. The colotomy was then closed transversely with a TA 60 stapler with a green load. Bleeding points were either cauterized or secured with 3-0 silk. The crotch of the anastomosis was secured with another 3-0 silk. I palpated for the adequacy or size of the anastomosis and was satisfied with this. There was no external bleeding nor leakage of a saw. This was delivered back into the wound and the incision was then closed with 1-0 Vicryl in a running fashion. After doing so the abdomen was again insufflated and be resumed laparoscopy. I inspected the area over the left upper quadrant for any signs of bleeding and likewise made sure that the anastomosis was loose and secure and likewise mesentery was not twisted. The omentum was brought back into its anatomic location. Last survey of the abdomen did not reveal any bleeding or any inadvertent injury. The abdomen was then deflated, all ports removed. All incisions closed with ginny including that of the extraction point. Patient was then promptly awakened, extubated and brought to recovery room stable. All counts of sponges and instruments to determine correct. RIAZ HEMPHILL MD Dec 02, 2018 17:36
[2018-12-02] MEDS ORDERED: fentaNYL 100 MCG/2 ML INJECTION (J3010) IV PRN (18:15)
[2018-12-02] MEDS ORDERED: HYDROMORPHONE HCL 0.5 MG/ 0.5 ML SYRINGE (J1170 PER 1) IV PRN (18:15)
[2018-12-02 18:30] VITALS: BP 164/96
[2018-12-02] MEDS: HumaLOG INSULIN (NovoLOG) PER UNIT SC SCH (18:53)
[2018-12-02] MEDS: LR 1,000 ML IV SCH ×3 (18:54→23:06)
[2018-12-02 20:00] VITALS: BP 159/90
[2018-12-02] MEDS: ALVIMOPAN 12 MG CAPSULE (ENTEREG) PO SCH (20:53)
[2018-12-02] MEDS: SENOKOT S TAB PO SCH (20:53)
[2018-12-02] MEDS: HEPARIN SOD (PORCINE) 5000 UNITS/ML VIAL SC SCH (20:53)
[2018-12-02] MEDS: CALCIUM/VITAMIN D 500 MG TAB PO SCH (20:53)
[2018-12-02] MEDS: KETOROLAC 30 MG/ML VIAL (J1885) IV PRN (22:33)
[2018-12-03] VITALS: BP 130/69
[2018-12-03 02:00] VITALS: BP 117/69
[2018-12-03] MEDS: KETOROLAC 30 MG/ML VIAL (J1885) IV PRN ×3 (05:21→23:58)
[2018-12-03] MEDS: HEPARIN SOD (PORCINE) 5000 UNITS/ML VIAL SC SCH ×3 (05:21→20:35)
[2018-12-03 06:00] VITALS: BP 137/75; O2SAT 94
[2018-12-03 06:25] LABS: BASO % 0.2 % (0.0-1.0); HEMATOCRIT 43.1 % (42.0-52.0); HEMOGLOBIN 13.8 g/dl (13.5-17.5); LYMPH # 0.8 10^3/uL (1.5-4.5); LYMPH % 7.2 % (24.0-44.0); MEAN CORPUSCULAR HEMOGLOBIN 28.7 pg (27.0-33.0); MEAN CORPUSCULAR VOLUME 89.6 fl (80.0-96.0); MONO # 0.8 10^3/uL (0.0-0.8); MONO % 6.5 % (0.0-5.0); NEUTROPHILS # 9.8 10^3/uL (1.8-7.7); NEUTROPHILS % 85.6 % (36.0-66.0); PLATELET COUNT, AUTOMATED 224 10^3/uL (150-450); RED BLOOD COUNT 4.81 10^6/uL (4.30-6.10); WHITE BLOOD COUNT 11.5 10^3/uL (4.0-10.0)
[2018-12-03 06:48] LABS: BLOOD UREA NITROGEN 10 MG/DL (7-18); CALCIUM LEVEL 8.3 MG/DL (8.5-10.1); CARBON DIOXIDE LEVEL 25 MEQ/L (21-32); CHLORIDE LEVEL 106 MEQ/L (98-107); CREATININE FOR GFR 0.93 MG/DL (0.70-1.30); GLOMERULAR FILTRATION RATE > 60.0 (>56); GLUCOSE, FASTING 178 MG/DL (70-100); POTASSIUM SERUM 4.1 MEQ/L (3.5-5.1); SODIUM LEVEL 140 MEQ/L (136-145)
[2018-12-03] MEDS: FEXOFENADINE 60 MG TAB PO SCH (08:17)
[2018-12-03] MEDS: EZETIMIBE 10 MG TAB (ZETIA) PO SCH (08:18)
[2018-12-03] MEDS: SENOKOT S TAB PO SCH ×2 (08:18→20:34)
[2018-12-03] MEDS: ASPIRIN 81 MG ENTERIC TAB PO SCH (08:18)
[2018-12-03] MEDS: HumaLOG INSULIN (NovoLOG) PER UNIT SC SCH ×3 (08:18→18:14)
[2018-12-03] MEDS: CALCIUM/VITAMIN D 500 MG TAB PO SCH ×2 (08:18→20:34)
[2018-12-03] MEDS: ALVIMOPAN 12 MG CAPSULE (ENTEREG) PO SCH ×2 (08:18→20:35)
[2018-12-03] MEDS: ATORVASTATIN 10 MG TAB PO SCH (08:25)
[2018-12-03] MEDS: LOSARTAN 50 MG TAB PO SCH (08:25)
[2018-12-03] MEDS: METOPROLOL SUCC *XL* 25MG TAB (TopROL *XL*) PO SCH (08:25)
[2018-12-03] MEDS: LR 1,000 ML IV SCH (11:26)
[2018-12-03 14:00] VITALS: BP 132/68
[2018-12-03 17:48] VITALS: O2SAT 91
[2018-12-03 22:00] VITALS: BP 139/65
[2018-12-04] MEDS: HEPARIN SOD (PORCINE) 5000 UNITS/ML VIAL SC SCH (05:30)
[2018-12-04 06:00] VITALS: O2SAT 97
[2018-12-04 07:01] LABS: BASO # 0.1 10^3/uL (0.0-0.2); BASO % 0.6 % (0.0-1.0); EOS # 0.4 10^3/uL (0.0-0.50); EOS % 3.6 % (0.0-3.0); HEMATOCRIT 43.2 % (42.0-52.0); HEMOGLOBIN 13.6 g/dl (13.5-17.5); LYMPH # 1.1 10^3/uL (1.5-4.5); LYMPH % 9.3 % (24.0-44.0); MEAN CORPUSCULAR HEMOGLOBIN 29.1 pg (27.0-33.0); MEAN CORPUSCULAR HGB CONC 31.5 g/dl (32.0-36.5); MEAN CORPUSCULAR VOLUME 92.3 fl (80.0-96.0); MONO # 0.8 10^3/uL (0.0-0.8); MONO % 7.2 % (0.0-5.0); NEUTROPHILS # 9.2 10^3/uL (1.8-7.7); NEUTROPHILS % 78.8 % (36.0-66.0); PLATELET COUNT, AUTOMATED 212 10^3/uL (150-450); RED BLOOD COUNT 4.68 10^6/uL (4.30-6.10); WHITE BLOOD COUNT 11.7 10^3/uL (4.0-10.0)
[2018-12-04 07:16] LABS: BLOOD UREA NITROGEN 8 MG/DL (7-18); CARBON DIOXIDE LEVEL 30 MEQ/L (21-32); CHLORIDE LEVEL 104 MEQ/L (98-107); CREATININE FOR GFR 0.94 MG/DL (0.70-1.30); GLOMERULAR FILTRATION RATE > 60.0 (>56); GLUCOSE, FASTING 139 MG/DL (70-100); POTASSIUM SERUM 3.8 MEQ/L (3.5-5.1); SODIUM LEVEL 141 MEQ/L (136-145)
[2018-12-04] MEDS: CALCIUM/VITAMIN D 500 MG TAB PO SCH ×2 (07:49→20:05)
[2018-12-04] MEDS: FEXOFENADINE 60 MG TAB PO SCH (07:49)
[2018-12-04] MEDS: HumaLOG INSULIN (NovoLOG) PER UNIT SC SCH ×3 (07:49→17:36)
[2018-12-04] MEDS: SENOKOT S TAB PO SCH ×2 (07:50→20:05)
[2018-12-04] MEDS: ATORVASTATIN 10 MG TAB PO SCH (07:50)
[2018-12-04] MEDS: METOPROLOL SUCC *XL* 25MG TAB (TopROL *XL*) PO SCH (07:50)
[2018-12-04] MEDS: ALVIMOPAN 12 MG CAPSULE (ENTEREG) PO SCH ×2 (07:50→20:05)
[2018-12-04] MEDS: EZETIMIBE 10 MG TAB (ZETIA) PO SCH (07:50)
[2018-12-04] MEDS: ASPIRIN 81 MG ENTERIC TAB PO SCH (07:50)
[2018-12-04] MEDS: LOSARTAN 50 MG TAB PO SCH (07:51)
--- NOTE | 2018-12-04 09:01 | IPN ---
DATE: 12/03/2018 HISTORY: Patient is postoperative day 1 from a laparoscopic resection of his transverse colon. He has been taking clear liquids which he has tolerated well. His urine output is good and he has a Gandhi catheter in place. He is having some discomfort particularly with movement but has been taking very little in the way of pain medications. He reports some flatus but no bowel movement yet. Vital signs show that he has been afebrile since surgery. His pulse is in the 100-114 range. Blood pressure is good with a normal room air oxygen saturation. Intake and output shows that yesterday he had 5100 in with 800 recorded out. He has 1000 mL of urine recorded out so far today and his Gandhi catheter bag has perhaps another 1000. PHYSICAL EXAMINATION: The patient is a burly man lying quietly on the hospital bed. He is a man of few words. Heart exam shows a regular rhythm. Abdomen is somewhat protuberant and obese. He has multiple small dressings on. There is a midline dressing which has some staining of the lower quarter of the bandage. He does have bowel sounds present. There is some tympany to percussion in the upper abdomen. He has some mild expected postop tenderness on palpation. Laboratory studies show a CBC with a white count of 12, hemoglobin of 14, hematocrit of 43 and platelet count of 224,000. Differential count shows 86% neutrophils, 7% lymphocytes and 7% monocytes. Chemistry profile shows normal electrolytes, BUN, creatinine and a glucose of 178. IMPRESSION: The patient is doing well one day postop from a laparoscopic transverse colectomy for carcinoma. He is tolerating clear liquids well. He has little discomfort. PLAN: I will discontinue his Gandhi and saline lock his IV. He will be advanced to full liquids and he was encouraged to be up out of bed. We will check his labs again in the morning. AMISH
[2018-12-04 14:00] VITALS: BP 138/75
[2018-12-04] MEDS: ENOXAPARIN 40 MG/0.4 ML SYRINGE (J1650) SC SCH (14:58)
[2018-12-04] MEDS: SITagliptin 50 MG TAB (JANUVIA) PO SCH (14:58)
[2018-12-04 15:21] VITALS: O2SAT 95
[2018-12-04] MEDS: metFORMIN (GLUCOPHAGE) 1000 MG TABLET PO SCH (17:35)
[2018-12-04 21:00] VITALS: O2SAT 95
[2018-12-05 06:00] VITALS: BP 129/60
[2018-12-05 06:19] LABS: BASO # 0.1 10^3/uL (0.0-0.2); BASO % 0.6 % (0.0-1.0); EOS % 9.3 % (0.0-3.0); HEMATOCRIT 39.7 % (42.0-52.0); HEMOGLOBIN 12.8 g/dl (13.5-17.5); LYMPH # 1.4 10^3/uL (1.5-4.5); LYMPH % 12.2 % (24.0-44.0); MEAN CORPUSCULAR HEMOGLOBIN 28.9 pg (27.0-33.0); MEAN CORPUSCULAR HGB CONC 32.2 g/dl (32.0-36.5); MEAN CORPUSCULAR VOLUME 89.6 fl (80.0-96.0); MONO # 0.7 10^3/uL (0.0-0.8); MONO % 6.7 % (0.0-5.0); NEUTROPHILS # 7.9 10^3/uL (1.8-7.7); NEUTROPHILS % 70.9 % (36.0-66.0); PLATELET COUNT, AUTOMATED 214 10^3/uL (150-450); RED BLOOD COUNT 4.43 10^6/uL (4.30-6.10); WHITE BLOOD COUNT 11.1 10^3/uL (4.0-10.0)
[2018-12-05 06:39] LABS: BLOOD UREA NITROGEN 9 MG/DL (7-18); CALCIUM LEVEL 8.5 MG/DL (8.5-10.1); CARBON DIOXIDE LEVEL 30 MEQ/L (21-32); CHLORIDE LEVEL 106 MEQ/L (98-107); CREATININE FOR GFR 0.93 MG/DL (0.70-1.30); GLOMERULAR FILTRATION RATE > 60.0 (>56); GLUCOSE, FASTING 165 MG/DL (70-100); POTASSIUM SERUM 3.6 MEQ/L (3.5-5.1); SODIUM LEVEL 141 MEQ/L (136-145)
[2018-12-05] MEDS: metFORMIN (GLUCOPHAGE) 1000 MG TABLET PO SCH ×2 (09:12→18:26)
[2018-12-05] MEDS: ENOXAPARIN 40 MG/0.4 ML SYRINGE (J1650) SC SCH (09:12)
[2018-12-05] MEDS: METOPROLOL SUCC *XL* 25MG TAB (TopROL *XL*) PO SCH (09:12)
[2018-12-05] MEDS: LOSARTAN 50 MG TAB PO SCH (09:13)
[2018-12-05] MEDS: ALVIMOPAN 12 MG CAPSULE (ENTEREG) PO SCH (09:13)
[2018-12-05] MEDS: CALCIUM/VITAMIN D 500 MG TAB PO SCH ×2 (09:13→20:31)
[2018-12-05] MEDS: ATORVASTATIN 10 MG TAB PO SCH (09:13)
[2018-12-05] MEDS: SENOKOT S TAB PO SCH ×2 (09:13→20:29)
[2018-12-05] MEDS: EZETIMIBE 10 MG TAB (ZETIA) PO SCH (09:14)
[2018-12-05] MEDS: HumaLOG INSULIN (NovoLOG) PER UNIT SC SCH ×3 (09:14→18:26)
[2018-12-05] MEDS: SITagliptin 50 MG TAB (JANUVIA) PO SCH (09:14)
[2018-12-05] MEDS: ASPIRIN 81 MG ENTERIC TAB PO SCH (09:14)
[2018-12-05] MEDS: FEXOFENADINE 60 MG TAB PO SCH (09:14)
[2018-12-05 10:50] VITALS: O2SAT 96
[2018-12-05] MEDS: CLOPIDOGREL 75 MG TAB PO SCH (10:55)
[2018-12-05 14:00] VITALS: BP 130/65
[2018-12-05 22:00] VITALS: BP 146/77
[2018-12-05 23:40] VITALS: O2SAT 96
[2018-12-06 06:00] VITALS: BP 135/73
[2018-12-06 06:06] LABS: HEMATOCRIT 40.2 % (42.0-52.0); MEAN CORPUSCULAR HEMOGLOBIN 28.8 pg (27.0-33.0); MEAN CORPUSCULAR HGB CONC 32.3 g/dl (32.0-36.5); MEAN CORPUSCULAR VOLUME 89.1 fl (80.0-96.0); PLATELET COUNT, AUTOMATED 233 10^3/uL (150-450); RED BLOOD COUNT 4.51 10^6/uL (4.30-6.10); WHITE BLOOD COUNT 10.8 10^3/uL (4.0-10.0)
[2018-12-06] MEDS: ENOXAPARIN 40 MG/0.4 ML SYRINGE (J1650) SC SCH (09:06)
[2018-12-06] MEDS: CALCIUM/VITAMIN D 500 MG TAB PO SCH (09:06)
[2018-12-06] MEDS: FEXOFENADINE 60 MG TAB PO SCH (09:06)
[2018-12-06] MEDS: SITagliptin 50 MG TAB (JANUVIA) PO SCH (09:06)
[2018-12-06] MEDS: CLOPIDOGREL 75 MG TAB PO SCH (09:07)
[2018-12-06] MEDS: ASPIRIN 81 MG ENTERIC TAB PO SCH (09:07)
[2018-12-06] MEDS: metFORMIN (GLUCOPHAGE) 1000 MG TABLET PO SCH (09:07)
[2018-12-06] MEDS: SENOKOT S TAB PO SCH (09:07)
[2018-12-06] MEDS: LOSARTAN 50 MG TAB PO SCH (09:07)
[2018-12-06] MEDS: ATORVASTATIN 10 MG TAB PO SCH (09:07)
[2018-12-06 09:08] VITALS: BP 135/73
[2018-12-06] MEDS: METOPROLOL SUCC *XL* 25MG TAB (TopROL *XL*) PO SCH (09:08)
[2018-12-06] MEDS: EZETIMIBE 10 MG TAB (ZETIA) PO SCH (09:08)
[2018-12-06] MEDS: HumaLOG INSULIN (NovoLOG) PER UNIT SC SCH (09:08)
[2018-12-06] MEDS ORDERED: NORCOTAB PO (09:35)
--- NOTE | 2018-12-06 19:50 | IPN ---
DATE: 12/04/2018 HISTORY: The patient is now two days postoperative from a transverse colon resection for cancer. He was advanced to full liquids yesterday and he tolerated these well so he was advanced to a regular diet early this afternoon. He has had several bowel movements recorded. These have been loose. He has not noticed any increase in his pain. VITAL SIGNS: Show that he has been afebrile over the past 24 hours. His pulse has ranged from 105 to 114. Blood pressure is good and his room air oxygen saturation is normal. Intake and output yesterday: He had 2600 in with 1975 out. Today he has had 1430 in so far with one liter of urine output. PHYSICAL EXAMINATION: GENERAL: Patient is lying quietly on the hospital bed. He is alert and oriented. HEART: Heart exam shows a regular rate and rhythm. ABDOMEN: The abdomen is somewhat protuberant and obese. He has active bowel sounds present. Palpation reveals the abdomen to be soft with only expected mild tenderness present. LABORATORIES: Laboratory studies today showed normal electrolytes with BUN of 8, creatinine 0.9 and a glucose of 139. The complete blood count (CBC) showed a white count of 12, hemoglobin 14, hematocrit 43 and platelet count of 212,000. Differential count showed 79% neutrophils, 9% lymphocytes and 7% monocytes. IMPRESSION: The patient is doing very well now two days postoperative from his transverse colectomy. He was advanced to regular diet early this afternoon and has had a sandwich without any difficulty. He has had no nausea or vomiting. PLAN: The patient will remain on a regular diet. I will reorder his metformin to start this evening and the Januvia also to start today. I have converted his heparin to Lovenox to reduce the number of injections. The patient may well be ready for discharge tomorrow, but Dr. Hemphill can make that call when he comes in to see the patient tomorrow.
--- NOTE | 2018-12-08 08:49 | DS.PDOC ---
Discharge Summary General Date of Admission Dec 02, 2018 at 09:18 Date of Discharge 12/06/2018 Attending Physician: EMILY DAVILA MD Discharge Summary PROCEDURES PERFORMED DURING STAY: Laparoscopic assisted transverse colectomy with anastomosis, takedown of splenic flexure. ADMITTING DIAGNOSES: 1. Malignancy transverse colon 2. Morbid obesity 3. Diabetes 4. Coronary artery disease. DISCHARGE DIAGNOSES: 1. Malignancy transverse colon status post transverse colectomy (final pathology pending) 2. Morbid obesity 3. Diabetes 4. Coronary artery disease. 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 HISTORY OF PRESENT ILLNESS: Patient had a colonoscopy done for evaluation of intermittent rectal bleeding and was found to have a malignant-appearing mass at the distal transverse colon. Biopsy reveals adenocarcinoma. Preoperative workup which includes a CT scan of the chest abdomen and pelvis did not reveal any noticeable metastasis. He was seen in my clinic and counseled for surgery. He is brought today for resection of planned laparoscopic transverse colectomy. HOSPITAL COURSE: Patient underwent laparoscopic transverse colectomy on 12/02/2018. He did well perioperatively. He was admitted to regular floors with cardiorespiratory monitoring. He was immediately started on clear liquids. He was passing flatus by postop day 1 he was advanced to a full liquid diet which she tolerated. He was mildly tachycardic throughout his postoperative course which is at part with this preoperative state. He is on metoprolol 25 mg daily. His aspirin has been continued perioperatively. His Plavix has been held 7 days prior to the procedure. This was restarted at about postop day 3 after we determined he has been hemodynamically stable and his hemoglobin and hematocrit has been stable. At postop day 2 he was advanced to regular diet. He has been having 2 or 3 loose stools daily. His Entereg was discontinued by then. At the of discharge he continues to have loose stools but patient reports this is getting more formed in consistency. He is denying any abdominal discomfort. The is tolerating regular diet with a good appetite. His blood sugars have been well controlled perioperatively. No postoperative complications noted throughout the hospital postoperative course. DISCHARGE MEDICATIONS: Please see below. ALLERGIES: Please see below. PHYSICAL EXAMINATION ON DISCHARGE: VITAL SIGNS: Please see below. GENERAL: Comfortable HEENT: [place] palpebral conjunctiva. Anicteric sclerae. Lips and mucosa are moist. NECK: Supple neck. Short. No obvious jugular venous distention. CARDIOVASCULAR EXAMINATION: Regular heart rate and rhythm. No murmurs. RESPIRATORY EXAMINATION: Clear breath sounds to auscultation bilaterally. ABDOMINAL EXAMINATION: Morbidly obese, very protuberant and rounded but nondistended. Periumbilical midline incision with ginny intact. Mild bruising below the umbilicus but otherwise no noticeable subcutaneous collection. No e rythema or drainage. There are 3 other ports site incisions with ginny are healing accordingly. Abdomen is nontender to palpation in all 4 quadrants. EXTREMITIES: No edema SKIN: No skin rashes NEUROLOGICAL EXAMINATION: Awake, alert, oriented LABORATORY DATA: Please see below. IMAGING: None PROGNOSIS: Good. Pathology remains pending at the time of discharge. ACTIVITY: Light activity 2 weeks.. DIET: As tolerated. DISCHARGE PLAN: Patient will be discharged home. He'll follow-up with me next week for removal of ginny. I will review the pathology results with him and subsequent recommendation on his follow-up. DISPOSITION: . DISCHARGE INSTRUCTIONS: 1. As above 2. May shower. Pat incisions until dry. May either leave the incision open to air or cover this with a light gauze dressing and change as needed 3. Follow-up with me as scheduled next . ITEMS TO FOLLOWUP ON ON OUTPATIENT: 1. Final pathology result DISCHARGE CONDITION: Stable. TIME SPENT ON DISCHARGE: Greater than 30 minutes. Vital Signs/I&Os Vital Signs Date Time Temp Pulse Resp B/P (MAP) Pulse Ox O2 Delivery O2 Flow Rate FiO2 12/06/18 09:08 90 135/73 12/06/18 06:00 97.0 16 98 12/05/18 23:40 Room Air 12/04/18 14:00 2.0 I&O- Last 24 Hours up to 6 AM 12/06/18 06:00 Intake Total 2810 ml Output Total 300 ml Balance 2510 ml Laboratory Data Labs 24H Laboratory Tests 2 12/05/18 12:01: Bedside Glucose (Misc Panel) 138H 12/05/18 16:36: Bedside Glucose (Misc Panel) 150H 12/05/18 20:25: Bedside Glucose (Misc Panel) 160H 12/06/18 05:49: Nucleated Red Blood Cells % (auto) 0.0 CBC/BMP Laboratory Tests 12/06/18 05:49 Red Blood Count 4.51, Mean Corpuscular Volume 89.1, Mean Corpuscular Hemoglobin 28.8, Mean Corpuscular Hemoglobin Concent 32.3, Red Cell Distribution Width 13.7 FSBS Laboratory Tests Test 12/05/18 12:01 12/05/18 16:36 12/05/18 20:25 Range/Units Bedside Glucose (Misc Panel) 138 150 160 70-105 MG/DL Discharge Medications Scheduled Ascorbic Acid (Vitamin C) 500 Mg Tab, 500 MG PO DAILY, (Reported) Aspirin (Aspirin 81) 81 Mg Tab, 81 MG PO DAILY, (Reported) Atorvastatin Calcium (Atorvastatin Calcium) 10 Mg Tab, 10 MG PO DAILY, (Reported) Calcium/Vitamin D (Calcium 500/Vitamin D 500-125 mg-Unit) 1 Tab Tab, 500 MG PO BID, (Reported) Clopidogrel Bisulfate (Plavix) 75 Mg Tab, 75 MG PO DAILY, (Reported) Dapagliflozin Propanediol (Farxiga) 10 Mg Tab, 10 MG PO QAM, (Reported) Ezetimibe (Zetia) 10 Mg Tab, 10 MG PO DAILY, (Reported) Fexofenadine Hydrochloride (Rashida Allergy) 180 Mg Tab, 180 MG PO DAILY, (Reported) Losartan Potassium (Losartan Potassium) 100 Mg Tab, 50 MG PO DAILY, (Reported) Metformin Hydrochloride (Metformin HCl) 1,000 Mg Tab, 1,000 MG PO BID, (Rep orted) Metoprolol Succinate (Toprol Xl) 25 Mg Tab, 25 MG PO DAILY, (Reported) Multivitamins (Multivitamin Adults) 1 Tab Tab, 1 TAB PO DAILY, (Reported) Sitagliptin Phosphate (Januvia) 100 Mg Tab, 100 MG PO DAILY, (Reported) Scheduled PRN Acetaminophen/Hydrocodone ([place], Anexsia 5/325) 1 Tab Tab, 1-2 TAB PO Q4HP PRN for MODERATE PAIN (PS 5-7) Albuterol Sulfate (Proair Hfa) 108 Mcg/Act Aer, INH PRN PRN for SHORTNESS OF BREATH, (Reported) Allergies Coded Allergies: Quinapril (Verified Allergy, Intermediate, shortness of breath, 10/20/18) EMILY DAVILA MD Dec 06, 2018 09:43
--- NOTE | 2018-12-08 08:57 | IPNPDOC ---
Subjective General Date/Time Seen The patient was seen on 12/05/18 Subject Chief Complaint/History The patient is a 53-year-old male admitted with a reason for visit of Transverse Colon Adenocarcinoma. Patient had laparoscopic transverse colectomy last Wednesday. He did well over the weekend. He is having bowel movements now and he was started on regular diet by Dr. Pimentel yesterday. So far he has had 2 solid meals. He still feels somewhat distended but otherwise does not have any severe abdominal discomfort. He reports having diarrhea. Current Medications Current Medications Current Medications Acetaminophen (Tylenol Tab) 650 mg Q4HP PRN PO MILD PAIN or TEMP > 101; Start 12/02/18 at 17:30; Stop 12/06/18 at 11:15; Status DC Acetaminophen/ Hydrocodone Bitart ([place], Anexsia 5/325) 1 tab Q4HP PRN PO MODERATE PAIN (PS 5-7); Start 12/02/18 at 17:30; Stop 12/06/18 at 11:15; Status DC Acetaminophen/ Hydrocodone Bitart ([place], Anexsia 5/325) 2 tab Q6HP PRN PO SEVERE PAIN (PS 8-10); Start 12/02/18 at 17:30; Stop 12/03/18 at 14:52; Status DC Alvimopan (Entereg) 12 mg BID PO Last administered on 12/05/18at 09:13; Start 12/02/18 at 21:00; Stop 12/05/18 at 10:29; Status DC Aspirin (Ecotrin) 81 mg DAILY PO Last administered on 12/06/18at 09:07; Start 12/03/18 at 09:00; Stop 12/06/18 at 11:15; Status DC Atorvastatin Calcium (Lipitor) 10 mg DAILY PO Last administered on 12/06/18 09:07; Start 12/03/18 at 09:00; Stop 12/06/18 at 11:15; Status DC Calcium/Vitamin D (Oscal D) 500 mg BID PO Last administered on 12/06/18at 09:06; Start 12/02/18 at 21:00; Stop 12/06/18 at 11:15; Status DC Clopidogrel Bisulfate (PLAVix) 75 mg DAILY PO Last administered on 12/06/18at 09:07; Start 12/05/18 at 09:00; Stop 12/06/18 at 11:15; Status DC Dextrose (Dextrose 50%) 25 ml ASDIRECTED PRN IV SEE LABEL COMMENTS; Start 12/02/18 at 17:30; Stop 12/06/18 at 11:15; Status DC Enoxaparin Sodium (Lovenox) 40 mg DAILY SC Last administered on 12/06/18at 09:06; Start 12/04/18 at 13:30; Stop 12/06/18 at 11:15; Status DC EZETIMIBE (Zetia) 10 mg DAILY PO Last administered on 12/06/18at 09:08; Start 12/03/18 at 09:00; Stop 12/06/18 at 11:15; Status DC Fentanyl Citrate (Sublimaze) 25 mcg Q5MP PRN IV MODERATE PAIN (PS 4-7); Start 12/02/18 at 18:15; Stop 12/02/18 at 19:15; Status DC Fexofenadine HCl (Rashida) 180 mg DAILY PO Last administered on 12/06/18at 09:06; Start 12/03/18 at 09:00; Stop 12/06/18 at 11:15; Status DC Glucagon (Glucagon) 1 mg ASDIRECTED PRN SC SEE LABEL COMMENTS; Start 12/02/18 at 17:30; Stop 12/06/18 at 11:15; Status DC Glucose (Glucose) 16 GM ASDIRECTED PRN PO SEE LABEL COMMENTS; Start 12/02/18 at 17:30; Stop 12/06/18 at 11:15; Status DC Heparin Sodium (Porcine) (Heparin) 5,000 units Q8H SC Last administered on 12/04/18at 05:30; Start 12/02/18 at 22:00; Stop 12/04/18 at 13:20; Status DC Hydromorphone HCl (Dilaudid) 0.2 mg Q15MP PRN IV MODERATE/SEVERE PAIN (PS 5- 10); Start 12/02/18 at 18:15; Stop 12/03/18 at 14:52; Status DC Insulin Human Lispro (HumaLOG INSULIN) SEE PROTOCOL TABLE AC SC Last administered on 12/06/18at 09:08; Start 12/02/18 at 17:30; Stop 12/06/18 at 11:15; Status DC Ketorolac Tromethamine (ToRADol) 30 mg Q6HP PRN IV MILD/MODERATE PAIN (PS 1-7) Last administered on 12/03/18 23:58; Start 12/02/18 at 17:30; Stop 12/06/18 at 11:15; Status DC Lactated Ringer's 1,000 ml @ 100 mls/hr Q10H IV Last administered on 12/03/18 11:26; Start 12/02/18 at 17:25; Stop 12/03/18 at 16:45; Status DC Losartan Potassium (Cozaar) 50 mg DAILY PO Last administered on 12/06/18 09:07; Start 12/03/18 at 09:00; Stop 12/06/18 at 11:15; Status DC Metformin HCl (Glucophage) 1,000 mg BID@0800,1800 PO Last administered on 12/06/18 09:07; Start 12/04/18 at 18:00; Stop 12/06/18 at 11:15; Status DC Metoprolol Succinate (TopROL XL) 25 mg DAILY PO Last administered on 12/06/18 09:08; Start 12/03/18 at 09:00; Stop 12/06/18 at 11:15; Status DC Morphine Sulfate (Morphine Sulfate Inj) 4 mg Q2HP PRN IV SEVERE PAIN (PS 8-10) Last administered on 12/02/18 18:49; Start 12/02/18 at 17:30; Stop 12/04/18 at 13:20; Status DC Ondansetron HCl (ZOFRAN INJection) 4 mg Q6HP PRN IV NAUSEA OR VOMITING Last administered on 12/02/18 18:49; Start 12/02/18 at 17:30; Stop 12/04/18 at 13:20; Status DC Senna/Docusate Sodium (Senokot S) 1 tab BID PO Last administered on 12/06/18 09:07; Start 12/02/18 at 21:00; Stop 12/06/18 at 11:15; Status DC Sitagliptin Phosphate (Januvia) 100 mg DAILY PO Last administered on 12/06/18 09:06; Start 12/04/18 at 15:00; Stop 12/06/18 at 11:15; Status DC Allergies Coded Allergies: Quinapril (Verified Allergy, Intermediate, shortness of breath, 10/20/18) Objective Physical Examination Examination GENERAL APPEARANCE: Looks comfortable. SKIN: Warm and moist. HEENT: Normocephalic, atraumatic. [place] palpebral conjunctiva, anicteric sclerae. Lips and mucosa appear moist. NECK: Supple, no thyromegaly. No obvious jugular venous distention. LUNGS: Clear to auscultation bilaterally. No wheezing appreciated. HEART: No chest wall abnormalities. Regular rate and rhythm with no murmurs appreciated. ABDOMEN: Abdomen is protuberant, round, mildly distended, tympanitic to pe rcussion, soft, midline periumbilical incision site with ginny intact. Mild bruising on the right side of the umbilicus. Rest of the port sites are clean, dry and intact. Ginny are intact. Nontender on palpation.. . EXTREMITIES: No edema. Vital Signs Vital Signs Date Time Temp Pulse Resp B/P (MAP) Pulse Ox O2 Delivery O2 Flow Rate FiO2 12/06/18 09:08 90 135/73 12/06/18 06:00 97.0 16 98 12/05/18 23:40 Room Air 12/04/18 14:00 2.0 Impression Postop day 3 following laparoscopic transverse colectomy for malignancy in the distal transverse colon with colocolic anastomosis Pathology is pending I don't expect this to be out until may be Wednesday or . Patient was made aware. Overall he appears to be doing well. I'll stop the Entereg which may be contributing to the diarrhea. I have asked him to continue to ambulate. I will restart him also on his Plavix. He continues to do I anticipate he'll be home soon. Plan / VTE VTE Prophylaxis Ordered?: Yes EMILY DAVILA MD Dec 08, 2018 08:57
== END 2018-12-06 11:05 | disposition home or self-care (01) | DRG 330 ==
LOC: M OR 09:18 → M MSPAV 18:19
PROVIDERS: ADMIT Surgery; ATTEND Surgery
PROC: 0DTL0ZZ Resection of Transverse Colon, Open Approach (ICD-10-PCS; principal; 2018-12-02 11:00)
DX: C18.4 Malignant neoplasm of transverse colon (principal); Z68.42 Body mass index [BMI] 45.0-49.9, adult; E66.01 Morbid (severe) obesity due to excess calories; E11.9 Type 2 diabetes mellitus without complications; I25.10 Atherosclerotic heart disease of native coronary artery without angina pectoris; G47.33 Obstructive sleep apnea (adult) (pediatric); I10 Essential (primary) hypertension; E78.5 Hyperlipidemia, unspecified; D64.9 Anemia, unspecified; Z79.82 Long term (current) use of aspirin; Z79.84 Long term (current) use of oral hypoglycemic drugs; Z79.899 Other long term (current) drug therapy; Z95.5 Presence of coronary angioplasty implant and graft

== ENCOUNTER → 2019-01-11 | Outpatient (CLI) | payer OTHER ==
[~2019-01-11] MED LIST changes: -ALVIMOPAN 12 MG CAPSULE (ENTEREG) PO ONE; -HEPARIN SOD (PORCINE) 5000 UNITS/ML VIAL SQ ONE; -LR 1,000 ML IV ONE; +NORCOTAB PO; -cefoTEtan DISODIUM 2 GM in D5W MINI-BAG PLUS 50 ML IV ONE; -metroNIDAZOLE 500 MG in APPROPRIATE DILUENT 1 EA IV ONE
[2019-01-11 07:20] LABS: INR 0.98; PROTHROMBIN TIME 13.1 SECONDS (12.1-14.4)
[2019-01-11 07:21] LABS: PARTIAL THROMBOPLASTIN TIME 32.8 SECONDS (25.4-37.6)
--- NOTE | 2019-01-11 10:24 | REP ---
CHEST X-RAY: Two views. HISTORY: Preprocedural encounter. COMPARISON CHEST X-RAY: June 27, 2017. FINDINGS: The lungs are well inflated and free of infiltrate. There is a small zone linear fibrosis in the left base which it is unchanged from comparison study February 09, 2016. There are degenerative changes in the thoracic spine. Heart is not enlarged. Pleural angles are sharp. Pulmonary vasculature is not increased. IMPRESSION: Mild linear fibrosis left base. Degenerative changes in the thoracic spine. Otherwise no acute disease. Electronically Signed by Reji Joyner MD 01/11/2019 03:54 P
== END ==
LOC: M LAB 06:46
PROVIDERS: ATTEND Thoracic Surgery (Cardiothoracic Vascular Surgery)
DX: Z01.818 Encounter for other preprocedural examination (principal); C18.4 Malignant neoplasm of transverse colon; I25.10 Atherosclerotic heart disease of native coronary artery without angina pectoris

== ENCOUNTER 2019-01-12 11:37 | Day surgery (SDC) | payer OTHER ==
[~2019-01-12] VITALS: Ht 185.4 cm; Wt 155.1 kg
[~2019-01-12 11:37] MED LIST changes: +LR 1,000 ML IV ONE; +MUPIROCIN 2% OINT 22 GM TUBE TOP ONE
[2019-01-12] MEDS ORDERED: fentaNYL 100 MCG/2 ML INJECTION (J3010) As Ordered ONE (12:19)
[2019-01-12] MEDS ORDERED: PROPOFOL 200 MG/20 ML VIAL As Ordered ONE (12:19)
[2019-01-12] MEDS ORDERED: ONDANSETRON 4MG/2ML VIAL (J2405) As Ordered ONE (12:19)
[2019-01-12] MEDS ORDERED: LIDOCAINE 2% INJ 100 MG/5 ML SDV (FOR ANES.) As Ordered ONE (12:19)
[2019-01-12] MEDS ORDERED: MIDAZOLAM INJ 2 MG/2 ML VIAL (J2250) As Ordered ONE (12:20)
[2019-01-12] MEDS ORDERED: LIDOCAINE 1% SDV INJ 30 ML VIAL As Ordered ONE (12:59)
[2019-01-12] MEDS ORDERED: HEPARIN SOD (PORCINE) 5000 UNITS/ML VIAL As Ordered ONE (13:00)
[2019-01-12] MEDS ORDERED: BUPIVACAINE LIPOSOME/PF 1.3% 20ML VIAL (13.3MG/ML)(EXPAREL)(C9290 PER1MG) As Ordered ONE (13:00)
[2019-01-12] MEDS ORDERED: MIDAZOLAM INJ 5 MG/ML VIAL (J2250) As Ordered ONE (13:42)
--- NOTE | 2019-01-12 14:40 | REP ---
Partial chest x-ray: Two views. History: Cmjxbc-Y-Qkkn placement. Findings: A sequence of two last image hold fluoroscopically obtained spot radiographs document left subclavian Eplfxm-J-Qdlm placement. 47 seconds of fluoroscopy time is reported. Electronically Signed by Reji Joyner MD 01/12/2019 02:32 P
[2019-01-12] MEDS ORDERED: PERCOCET 5MG/325MG TAB PO PRN (15:00)
[2019-01-12] MEDS ORDERED: MORPHINE 10 MG/ML 1ML VIAL (J2270) IV PRN (15:00)
[2019-01-12] MEDS ORDERED: LR 1,000 ML IV SCH (15:00)
--- NOTE | 2019-01-12 15:08 | REP ---
Clinical: Status post Whgpms-K-Ewtz placement . Comparison: 01/11/2019, 01/19/2017. Findings: Left-sided Rzznvt-W-Suhd with tip in the SVC. No pneumothorax. The mediastinum and cardiac silhouette are stable and within normal limits. No focal consolidation. No effusion. Skeletal structures are intact. Impression: 1. Cicjmk-I-Txpn in satisfactory position. No pneumothorax. Electronically Signed by Federico Urena MD 01/12/2019 03:00 P
[2019-01-12 15:45] VITALS: BP 137/75
--- NOTE | 2019-01-12 16:39 | IPN ---
DATE: 01/12/2019 PREPROCEDURE DIAGNOSIS: Colon cancer, metastatic, in need of chemotherapy and vascular access. POSTPROCEDURE DIAGNOSIS: Colon cancer, metastatic, in need of chemotherapy and vascular access. PROCEDURE: Insertion of left subclavian PowerPort with fluoroscopic control. SURGEON: Constantine Gay MD [facility] [employer] TEACHER: ANESTHESIA: FINDINGS: All contours were smooth at the end of the procedure. Port aspirated and flushed well. Catheter was placed at the junction of superior vena cava (SVC) in the right atrium. DESCRIPTION OF PROCEDURE: Under satisfactory monitored anesthesia care (MAC) anesthesia, the patient was prepped and draped in the usual sterile fashion. The vein was found on the first pass and a wire was placed. Wire position was confirmed by fluoroscopy. The port incision was then infiltrated with Exparel, incision made, and a subcutaneous pocket created by use of both electrocautery and blunt dissection. The wire site was incised and dilated. The catheter was placed low numbers down into the right atrium. A tunnel was created from the wire site to the port site, and the catheter pulled through under fluoroscopy control. Catheter was cut to an appropriate length, collar was placed and connected to the PowerPort. PowerPort was then flushed with heparinized saline and a final flush of 100 units per mL of saline. PowerPort was then secured to the chest wall with two #2-0 silk sutures. X-ray was then undertaken along with fluoroscopy and showed that all contours were smooth and the catheter was positioned at the junction of the right atrium and SVC. Incisions were closed with a running #3-0 Vicryl suture for the subcutaneous tissue, running #4-0 Monocryl subcuticular suture for the skin. Patient tolerated the procedure well and left the operating room in satisfactory condition for the recovery room.
== END 2019-01-12 16:11 | disposition home or self-care (01) ==
LOC: M SDC 11:37
PROVIDERS: ATTEND Thoracic Surgery (Cardiothoracic Vascular Surgery)
DX: C18.9 Malignant neoplasm of colon, unspecified (principal); Z45.2 Encounter for adjustment and management of vascular access device; I25.2 Old myocardial infarction; I25.10 Atherosclerotic heart disease of native coronary artery without angina pectoris; I10 Essential (primary) hypertension; E11.9 Type 2 diabetes mellitus without complications; Z79.899 Other long term (current) drug therapy; Z79.84 Long term (current) use of oral hypoglycemic drugs; Z79.51 Long term (current) use of inhaled steroids; J45.909 Unspecified asthma, uncomplicated; E78.00 Pure hypercholesterolemia, unspecified
CPT/HCPCS: 36561; 71045; 76000; C1788; C9290; J0690; J2250; J2405; J3010

== ENCOUNTER → 2019-01-19 | Outpatient (CLI) | payer OTHER ==
[~2019-01-19] MED LIST changes: +ASPI-255; -ASPI1TAB PO; -ASPI325T25; +ASPI81TA26 PO; +FULP6INJ SC; +HYDR-3715 PO; -LR 1,000 ML IV ONE; +METF-881 PO; -MUPIROCIN 2% OINT 22 GM TUBE TOP ONE; -NORCOTAB PO; +TOPR25TA PO; -TOPR25TA13 PO
--- NOTE | 2019-01-19 09:26 | REP ---
Chest two views HISTORY: Colon cancer Comparison: 01/12/2019 The lungs are clear. The heart is normal in size. The pulmonary vasculature is normal in appearance. The bony structure is intact. An Deomgp-V-Kolu catheter is present. IMPRESSION: No acute disease. Electronically Signed by Ariel Cameron MD 01/19/2019 09:18 A
== END ==
LOC: M SMT 08:05
PROVIDERS: ATTEND Thoracic Surgery (Cardiothoracic Vascular Surgery)
DX: C18.4 Malignant neoplasm of transverse colon (principal)

== ENCOUNTER 2019-10-17 12:26 | Emergency (ER) | payer OTHER ==
[~2019-10-17] VITALS: Ht 185.4 cm; Wt 164.3 kg
[~2019-10-17 12:26] MED LIST changes: +ATOR40TA75 PO; +CALC25TA PO; +MS C15TA8 PO; +MSIR; +MSIR30TA PO; +MULTCAP PO; +ONDA8TAB7 PO; +ZETI10TA16 PO; -ZETI10TA30 PO
[2019-10-17] MEDS ORDERED: LOSA100T50 PO (12:45)
[2019-10-17 12:58] LABS: BASO # 0.1 10^3/uL (0.0-0.2); BASO % 0.8 % (0.0-1.0); EOS # 0.6 10^3/uL (0.0-0.5); EOS % 6.4 % (0.0-3.0); HEMATOCRIT 49.7 % (42.0-52.0); HEMOGLOBIN 16.6 g/dl (13.5-17.5); LYMPH # 1.8 10^3/uL (1.5-5.0); LYMPH % 21.2 % (24.0-44.0); MEAN CORPUSCULAR HEMOGLOBIN 31.1 pg (27.0-33.0); MEAN CORPUSCULAR HGB CONC 33.4 g/dl (32.0-36.5); MEAN CORPUSCULAR VOLUME 93.2 fl (80.0-96.0); MONO # 0.5 10^3/uL (0.0-0.8); MONO % 6.1 % (0.0-5.0); NEUTROPHILS # 5.6 10^3/uL (1.5-8.5); PLATELET COUNT, AUTOMATED 198 10^3/uL (150-450); RED BLOOD COUNT 5.33 10^6/uL (4.30-6.10); WHITE BLOOD COUNT 8.7 10^3/uL (4.0-10.0)
--- NOTE | 2019-10-17 13:09 | REP ---
Clinical: Chest pain . Comparison: 01/19/2019 . Findings: Txrztt-S-Vogm with tip in the SVC. The mediastinum and cardiac silhouette are stable and within normal limits for portable technique. The lung malin are stable without acute consolidation, effusion, or pneumothorax. Skeletal structures are intact. Impression: Chronic stable changes. No focal consolidation or effusion appreciated. Electronically Signed by Federico Urena MD 10/17/2019 01:01 P
--- NOTE | 2019-10-17 13:29 | REP ---
Clinical: Pain. Technique: Axial noncontrast images through the thoracic spine with coronal and sagittal re-formations. Findings: Alignment and kyphosis maintained. Vertebral bodies are intact. No acute fracture / compression injury or subluxation. Mild age-related changes include marginal spurring/osteophyte formation along with minimal scattered endplate irregularity. Posterior elements and spinous processes appear intact. Spinal canal appears patent. Paravertebral soft tissues are normal. Impression: Mild generalized age-related changes. No acute fracture / compression injury or subluxation. Electronically Signed by Federico Urena MD 10/17/2019 01:21 P
[2019-10-17 13:32] LABS: INR 1.03; PROTHROMBIN TIME 13.2 SECONDS (11.8-14.0)
[2019-10-17 13:39] LABS: ALBUMIN 3.7 GM/DL (3.2-5.2); ALT/SGPT 47 U/L (12-78); BILIRUBIN,DIRECT 0.2 MG/DL (0.0-0.2); BILIRUBIN,TOTAL 0.8 MG/DL (0.2-1.0); BLOOD UREA NITROGEN 13 MG/DL (7-18); CALCIUM LEVEL 9.6 MG/DL (8.5-10.1); CARBON DIOXIDE LEVEL 25 MEQ/L (21-32); CHLORIDE LEVEL 104 MEQ/L (98-107); CK-MB VALUE MASS < 1.0 NG/ML (<3.6); CPK CREATINE PHOSPHOKINASE 128 U/L (39-308); CREATININE FOR GFR 0.95 MG/DL (0.70-1.30); GLOMERULAR FILTRATION RATE > 60.0 (>56); GLUCOSE, FASTING 264 MG/DL (70-100); LIPASE 150 U/L (73-393); MB/CK RELATIVE INDEX 0.78 (< OR =4); POTASSIUM SERUM 4.8 MEQ/L (3.5-5.1); SODIUM LEVEL 138 MEQ/L (136-145); TOTAL PROTEIN 7.6 GM/DL (6.4-8.2); TROPONIN I < 0.02 NG/ML (< 0.10)
[2019-10-17 14:30] VITALS: BP 121/65
[2019-10-17] MEDS ORDERED: IBUP-1022 PO (14:35)
[2019-10-17] MEDS ORDERED: CYCL10TA PO (14:35)
[2019-10-17] MEDS ORDERED: carisoprodoL 350 MG TAB PO ONE (14:45)
[2019-10-17] MEDS ORDERED: IBUPROFEN 600 MG TAB PO ONE (15:00)
== END 2019-10-17 14:53 | disposition home or self-care (01) ==
LOC: M ED 12:26
DX: M54.9 Dorsalgia, unspecified (principal); M25.78 Osteophyte, vertebrae; C18.9 Malignant neoplasm of colon, unspecified; E11.9 Type 2 diabetes mellitus without complications; F17.200 Nicotine dependence, unspecified, uncomplicated; I11.9 Hypertensive heart disease without heart failure; Z79.01 Long term (current) use of anticoagulants; Z79.51 Long term (current) use of inhaled steroids; Z79.82 Long term (current) use of aspirin; Z79.84 Long term (current) use of oral hypoglycemic drugs; Z79.899 Other long term (current) drug therapy; Z88.8 Allergy status to other drugs, medicaments and biological substances

== ENCOUNTER → 2019-10-27 | Outpatient (CLI) | payer OTHER ==
[~2019-10-27] MED LIST changes: +CYCL10TA PO; +IBUP-1022 PO
[2019-10-27 10:14] LABS: BASO # 0.1 10^3/uL (0.0-0.2); BASO % 0.9 % (0.0-1.0); EOS # 0.7 10^3/uL (0.0-0.5); EOS % 8.9 % (0.0-3.0); HEMATOCRIT 49.8 % (42.0-52.0); HEMOGLOBIN 16.4 g/dl (13.5-17.5); LYMPH # 1.7 10^3/uL (1.5-5.0); LYMPH % 22.1 % (24.0-44.0); MEAN CORPUSCULAR HEMOGLOBIN 30.8 pg (27.0-33.0); MEAN CORPUSCULAR HGB CONC 32.9 g/dl (32.0-36.5); MEAN CORPUSCULAR VOLUME 93.4 fl (80.0-96.0); MONO # 0.4 10^3/uL (0.0-0.8); MONO % 5.7 % (0.0-5.0); NEUTROPHILS # 4.7 10^3/uL (1.5-8.5); NEUTROPHILS % 61.9 % (36.0-66.0); PLATELET COUNT, AUTOMATED 208 10^3/uL (150-450); RED BLOOD COUNT 5.33 10^6/uL (4.30-6.10); WHITE BLOOD COUNT 7.6 10^3/uL (4.0-10.0)
[2019-10-27 10:45] LABS: BLOOD UREA NITROGEN 10 MG/DL (7-18); FERRITIN 334 NG/ML (26-388); GLOMERULAR FILTRATION RATE > 60.0 (>56); IRON (FE) 71 UG/DL (65-175); PERCENT SATURATION 25.1 % (19.7-50.0); TOTAL IRON BINDING CAPACITY 283 UG/DL (250-450)
== END ==
LOC: M LAB 09:33
PROVIDERS: ATTEND Internal Medicine Gastroenterology
DX: C18.4 Malignant neoplasm of transverse colon (principal)

== ENCOUNTER → 2019-12-22 | Outpatient (CLI) | payer OTHER ==
[~2019-12-22] MED LIST changes: +CALC600T57 PO; +ONDA8TAB10 PO; -ONDA8TAB7 PO; +OZEM2INJ SC
--- NOTE | 2019-12-22 12:28 | REPVR ---
PROCEDURE INFORMATION: Exam: CT Abdomen And Pelvis Without Contrast Exam date and time: 12/22/2019 10:42 AM Age: 54 years old Clinical indication: Pain and condition or disease; Cancer; Other: Colon; Additional info: Restaging colon CA TECHNIQUE: Imaging protocol: Computed tomography of the abdomen and pelvis without contrast. Radiation optimization: All CT scans at this facility use at least one of these dose optimization techniques: automated exposure control; mA and/or kV adjustment per patient size (includes targeted exams where dose is matched to clinical indication); or iterative reconstruction. COMPARISON: CT ABD PELVIS WITH CONTRAST 11/14/2018 10:12 AM FINDINGS: Detailed evaluation of the abdominal and pelvic viscera is somewhat limited in the absence of intravenous contrast. Lungs: Trace lingular airspace disease. Coronary artery calcification. Liver: Fatty infiltration of the liver. Gallbladder and bile ducts: No cholelithiasis or biliary ductal dilatation. Pancreas: No pancreatic mass or ductal dilatation. Spleen: Enlarged spleen measuring 13.8 cm in length. 2.3 cm accessory spleen. Adrenals: Unremarkable adrenals. Kidneys and ureters: Normal renal morphology. No hydronephrosis. Mild bilateral infiltration of perinephric fat. Stomach and bowel: Postoperative change in the colon, without evidence for local tumor recurrence. Prominent stool suggesting constipation. No small bowel dilatation. Appendix: Appendix not visualized. Intraperitoneal space: No free fluid. Vasculature: Vascular calcification. Normal caliber of the abdominal aorta. Lymph nodes: No pathologically enlarged lymph nodes are prior Bladder: Normal bladder morphology. Reproductive: Punctate prostate calcification. Bones/joints: Degenerative change. Punctate pelvic bone islands. Soft tissues: Laxity of the anterior abdominal wall and superimposed umbilical hernia. Small fat containing inguinal hernias. IMPRESSION: 1. No acute inflammatory process in the abdomen or pelvis. 2. Additional findings as described above. Electronically signed by: William Mcgill On 12/22/2019 12:27:57 PM
== END ==
LOC: M RAD 10:34
PROVIDERS: ATTEND Internal Medicine Medical Oncology
DX: K76.0 Fatty (change of) liver, not elsewhere classified (principal); R16.1 Splenomegaly, not elsewhere classified; C18.9 Malignant neoplasm of colon, unspecified

== ENCOUNTER 2019-12-26 07:05 | Day surgery (SDC) | payer OTHER ==
[~2019-12-26] VITALS: Ht 185.4 cm; Wt 155.6 kg
[~2019-12-26 07:05] MED LIST changes: +NS 1,000 ML IV ONE
[2019-12-26] MEDS ORDERED: LIDOCAINE 2% INJ 100 MG/5 ML SDV (FOR ANES.) As Ordered ONE (07:11)
[2019-12-26] MEDS ORDERED: propofoL 200 MG/20 ML VIAL As Ordered ONE (07:12)
--- NOTE | 2019-12-26 09:06 | ROOR ---
Patient Name: Sher Hines Procedure Date: 12/26/2019 8:26 AM Date of : 1965 Age: 54 Room: [facility] Gender: Male Note Status: Finalized Procedure: Colonoscopy Indications: High risk colon cancer surveillance: Personal history of colon cancer Providers: Blaine Swan MD Referring MD: GARY GRIFFIN MD Requesting Provider: Medicines: Monitored Anesthesia Care Complications: No immediate complications. Procedure: Pre-Anesthesia Assessment: - Prior to the procedure, a History and Physical was performed, and patient medications and allergies were reviewed. The patient is competent. The risks and benefits of the procedure and the sedation options and risks were discussed with the patient. All questions were answered and informed consent was obtained. Patient identification and proposed procedure were verified by the physician, the nurse and the anesthesiologist in the procedure room. Mental Status Examination: alert and oriented. Airway Examination: normal oropharyngeal airway and neck mobility. Respiratory Examination: clear to auscultation. CV Examination: normal. Prophylactic Antibiotics: The patient does not require prophylactic antibiotics. Prior Anticoagulants: The patient has taken Plavix (clopidogrel), last dose was 7 days prior to procedure. ASA Grade Assessment: III - A patient with severe systemic disease. After reviewing the risks and benefits, the patient was deemed in satisfactory condition to undergo the procedure. The anesthesia plan was to use monitored anesthesia care (MAC). Immediately prior to administration of medications, the patient was re-assessed for adequacy to receive sedatives. The heart rate, respiratory rate, oxygen saturations, blood pressure, adequacy of pulmonary ventilation, and response to care were monitored throughout the procedure. The physical status of the patient was re-assessed after the procedure. The Colonoscope was introduced through the anus and advanced to the terminal ileum, with identification of the appendiceal orifice and IC valve. The colonoscopy was performed without difficulty. The patient tolerated the procedure well. The quality of the bowel preparation was good. The terminal ileum, ileocecal valve, appendiceal orifice, and rectum were photographed. Scope insertion time was 2 minutes. Scope withdrawal time was 10 minutes. The total duration of the procedure was 12 minutes. Findings: The perianal and digital rectal examinations were normal. The terminal ileum appeared normal. A 8 mm polyp was found in the ascending colon. The polyp was sessile. The polyp was removed with a cold snare. Resection and retrieval were complete. Verification of patient identification for the specimen was done by the physician and nurse using the patient's name, date and medical record number. Estimated blood loss was minimal. A 4 mm polyp was found in the descending colon. The polyp was sessile. The polyp was removed with a cold snare. Resection and retrieval were complete. There was evidence of a prior functional end-to-end colo-colonic anastomosis in the transverse colon. This was patent and was characterized by healthy appearing mucosa. Non-bleeding external and internal hemorrhoids were found during retroflexion. The hemorrhoids were small. Impression: - The examined portion of the ileum was normal. - One 8 mm polyp in the ascending colon, removed with a cold snare. Resected and retrieved. - One 4 mm polyp in the descending colon, removed with a cold snare. Resected and retrieved. - Patent functional end-to-end colo-colonic anastomosis, characterized by healthy appearing mucosa. - Non-bleeding external and internal hemorrhoids. Recommendation: - Patient has a contact number available for emergencies. The signs and symptoms of potential delayed complications were discussed with the patient. Return to normal activities tomorrow. Written discharge instructions were provided to the patient. - High fiber diet. - Continue present medications. - Resume aspirin tomorrow and Plavix (clopidogrel) tomorrow at prior doses. Refer to primary physician for further adjustment of therapy. - Await pathology results. - Repeat colonoscopy in 3 years for surveillance based on pathology results and for surveillance based on personal history of colon cancer. - Telephone GI clinic for pathology results in 2 weeks. - Return to primary care physician. Blaine Swan MD Blaine Swan MD 12/26/2019 9:05:38 AM Electronically signed by Blaine Swan MD Number of Addenda: 0 Note Initiated On: 12/26/2019 8:26 AM Estimated Blood Loss: Estimated blood loss was minimal.
[2019-12-26 09:15] VITALS: BP 133/80
== END 2019-12-26 09:38 | disposition home or self-care (01) ==
LOC: M OPP 07:05
PROVIDERS: ATTEND Internal Medicine Gastroenterology
DX: Z85.038 Personal history of other malignant neoplasm of large intestine (principal); D12.2 Benign neoplasm of ascending colon; K64.8 Other hemorrhoids; I71.4 Abdominal aortic aneurysm, without rupture; I10 Essential (primary) hypertension; E78.5 Hyperlipidemia, unspecified; D64.9 Anemia, unspecified; E78.00 Pure hypercholesterolemia, unspecified; E11.9 Type 2 diabetes mellitus without complications; J45.909 Unspecified asthma, uncomplicated; G47.30 Sleep apnea, unspecified; Z92.3 Personal history of irradiation; Z98.0 Intestinal bypass and anastomosis status; Z88.8 Allergy status to other drugs, medicaments and biological substances; Z79.82 Long term (current) use of aspirin; Z79.84 Long term (current) use of oral hypoglycemic drugs; Z79.899 Other long term (current) drug therapy; Z82.49 Family history of ischemic heart disease and other diseases of the circulatory system; Z83.3 Family history of diabetes mellitus

== ENCOUNTER → 2020-01-03 | Outpatient (CLI) | payer OTHER ==
[~2020-01-03] MED LIST changes: +ISOVUE-370 76% 100ML VIAL (Q9967) As Ordered ONE; -NS 1,000 ML IV ONE
--- NOTE | 2020-01-03 19:08 | REP ---
Clinical: Colon cancer. Restaging. Technique: Axial contrast enhanced images from the thoracic inlet to the upper abdomen with coronal and sagittal re-formations using 100 ml Isovue 370 intravenous contrast material. Comparison: 11/14/2018. Findings: Lung malin are well-aerated and demonstrate mild age-related chronic appearing interstitial changes along with minimal scarring primarily noted in the anterior right upper lobe and lingula. A small 5 mm noncalcified nodule is identified in the posterior left upper lobe (image 33). No further obvious nodule, mass or consolidation. No pleural effusion. No obvious axillary, hilar, or mediastinal adenopathy. The mediastinum demonstrates atherosclerotic changes to the thoracic aorta and coronary arteries without aortic aneurysm or cardiomegaly. No pericardial effusion. Surrounding musculoskeletal structures without focal abnormality. Impression: 1. 5 mm noncalcified nodule in the left upper lobe. Finding is nonspecific. Given the patient's history of metastatic disease cannot definitively be excluded. Consider short-term follow-up in 3-6 months. Electronically Signed by Federico Urena MD 01/03/2020 06:59 P
== END ==
LOC: M RAD 10:12
PROVIDERS: ATTEND Internal Medicine Medical Oncology
DX: R91.1 Solitary pulmonary nodule (principal); C18.9 Malignant neoplasm of colon, unspecified
CPT/HCPCS: 71260; J1642; Q9967

== ENCOUNTER → 2020-03-25 | Outpatient (CLI) | payer OTHER ==
[~2020-03-25] MED LIST changes: +CYCL-707 PO; -CYCL10TA PO; -ISOVUE-370 76% 100ML VIAL (Q9967) As Ordered ONE; +VITA-243 PO; -VITA500T PO
--- NOTE | 2020-03-26 07:27 | REP ---
Clinical: Follow up left upper lobe nodule. Technique: Axial noncontrast images from the thoracic inlet to the upper abdomen with coronal and sagittal re-formations. Comparison: 11/14/2018. Findings: A left upper lobe nodule is again identified measuring approximately 7 mm and may be slightly increased in size when compared to recent prior examination. No further consolidation, significant nodule or mass lesion is appreciated. Linear scarring at the lingula is again noted and unchanged. No effusion. No pneumothorax. No obvious adenopathy. Tracheobronchial tree is patent. Mediastinum demonstrates stable atherosclerotic changes to the thoracic aorta and coronary arteries without aortic aneurysm or cardiomegaly. No pericardial effusion. Limited upper abdomen demonstrates normal bilateral adrenal glands. Musculoskeletal structures demonstrate age-related changes without acute osseous abnormality. Impression: 1. The left upper lobe nodule now measures approximately 7 mm and may be slightly increased in size. 2. No further obvious acute mediastinal or pleuroparenchymal process appreciated. Electronically Signed by Federico Urena MD 03/26/2020 07:19 A
== END ==
LOC: M RAD 09:24
PROVIDERS: ATTEND Internal Medicine Medical Oncology
DX: R91.1 Solitary pulmonary nodule (principal)

== ENCOUNTER → 2020-06-19 | Outpatient (CLI) | payer OTHER ==
--- NOTE | 2020-07-17 12:47 | REP ---
NONCONTRAST CHEST CT CLINICAL: Solitary pulmonary nodule. TECHNIQUE: Axial noncontrast images from the thoracic inlet to the upper abdomen with coronal and sagittal reformations. COMPARISON: 03/25/2020, 01/03/2020. FINDINGS: A solitary soft tissue nodule in the left apex now measures 18 mm in diameter and is increased since prior examination. The lung malin are otherwise essentially clear and no further consolidation, nodule, or mass lesion is appreciated. The tracheobronchial tree appears patent. No pleural effusion or pneumothorax. No significant adenopathy identified. Further evaluation of the mediastinum demonstrates stable atherosclerotic changes to the thoracic aorta and coronary arteries without aortic aneurysm or cardiomegaly. No pericardial effusion. Surrounding musculoskeletal structures are intact. IMPRESSION: Left upper lobe solitary nodule now measures 18 mm in maximal diameter and increased from prior examination. PET CT and/or biopsy are recommended for further investigation. MTDD
== END ==
LOC: M RAD 09:17
PROVIDERS: ATTEND Internal Medicine Pulmonary Disease
DX: R91.1 Solitary pulmonary nodule (principal)

== ENCOUNTER → 2020-07-09 | Outpatient (CLI) | payer OTHER ==
--- NOTE | 2020-07-19 14:48 | REP ---
PET/CT HISTORY: Solitary pulmonary nodule. Comparison Chest CT study 06/19/2020 showed an 18 mm enlarging nodule in the left upper lobe. TECHNIQUE: Forty-five minutes following the intravenous injection of a 9.36 millicurie dose of F18 fludeoxyglucose, three dimensional PET scintigraphy and CT imaging is acquired from the skull base to the proximal thighs. PET/CT FINDINGS: Head and neck soft tissues were unremarkable. An Cnynuo-A-Qdrz catheter was noted on the left with its tip in the superior vena cava. There is no evidence of hilar or mediastinal hypermetabolic uptake within the thorax. The recently identified nodule in the left upper lobe is again seen. This demonstrates visible although not hypermetabolic FDG accumulation. Maximum standard uptake value is 2.16. Despite this, its enlarging morphology is felt to be suspicious for primary or secondary malignancy. No other abnormal hypermetabolic uptake is seen in the chest. No extrathoracic hypermetabolic uptake is seen. In the abdomen and pelvis, there is normal distribution of F18 FDG to the liver, spleen, gastrointestinal, and genitourinary system. No abnormal hypermetabolic uptake is seen in the abdomen or pelvis. There is some mild misregistration due to motion in the pelvic sequences of the images. IMPRESSION: There is discernible although nonhypermetabolic uptake in the suspicious nodule in the left upper lobe. No other abnormal hypermetabolic uptake is seen. MTDD
== END ==
LOC: M PLARAD 07:35
PROVIDERS: ATTEND Internal Medicine Pulmonary Disease
DX: R91.1 Solitary pulmonary nodule (principal)
CPT/HCPCS: 78815; A9552

== ENCOUNTER → 2020-07-24 | Outpatient (CLI) | payer OTHER ==
[2020-07-24 10:39] LABS: MALB URINE SIEMENS 67.6 MG/L; MAU/CREAT RATIO 48.9 MCG/MG (0.0-30.0)
== END ==
LOC: M LAB 07:53
PROVIDERS: ATTEND Internal Medicine Endocrinology, Diabetes & Metabolism
DX: E11.65 Type 2 diabetes mellitus with hyperglycemia (principal)

== ENCOUNTER → 2020-07-24 | Outpatient (CLI) | payer OTHER ==
[2020-07-24 09:59] LABS: HEMATOCRIT 48.5 % (42.0-52.0); HEMOGLOBIN 16.2 g/dl (13.5-17.5); MEAN CORPUSCULAR HEMOGLOBIN 30.6 pg (27.0-33.0); MEAN CORPUSCULAR HGB CONC 33.4 g/dl (32.0-36.5); MEAN CORPUSCULAR VOLUME 91.5 fl (80.0-96.0); PLATELET COUNT, AUTOMATED 200 10^3/uL (150-450); WHITE BLOOD COUNT 8.5 10^3/uL (4.0-10.0)
[2020-07-24 10:55] LABS: ALBUMIN 3.6 GM/DL (3.2-5.2); ALT/SGPT 38 U/L (12-78); BILIRUBIN,TOTAL 0.8 MG/DL (0.2-1.0); BLOOD UREA NITROGEN 14 MG/DL (7-18); CARBON DIOXIDE LEVEL 25 MEQ/L (21-32); CHLORIDE LEVEL 107 MEQ/L (98-107); CHOLESTEROL LEVEL 161 MG/DL (<200); CHOLESTEROL RISK RATIO 3.285 (<5); CREATININE FOR GFR 0.75 MG/DL (0.70-1.30); GLOMERULAR FILTRATION RATE > 60.0 (>56); GLUCOSE, FASTING 132 MG/DL (70-100); HDL CHOLESTEROL 49 MG/DL (>40); LDL CHOLESTEROL 79 MG/DL (<100); NON-HDL-C 112 MG/DL; POTASSIUM SERUM 4.1 MEQ/L (3.5-5.1); SODIUM LEVEL 139 MEQ/L (136-145); TOTAL PROTEIN 7.2 GM/DL (6.4-8.2); TRIGLYCERIDES LEVEL 163 MG/DL (<150)
== END ==
LOC: M LAB 07:55
DX: E11.9 Type 2 diabetes mellitus without complications (principal)

== ENCOUNTER → 2020-09-16 | Outpatient (CLI) | payer OTHER ==
--- NOTE | 2020-09-16 08:24 | REP ---
INDICATION: SOLITARY PULMONARY NODULE COMPARISON: None TECHNIQUE: Axial noncontrast images from the thoracic inlet to the upper abdomen with coronal and sagittal reformations. This CT examination was performed using the following dose reduction techniques: Automated exposure control, adjustment of mA and/or kv according to the patient's size, and use of iterative reconstruction technique. FINDINGS: Left upper lobe nodule increased in size from 18mm to 25mm. No further suspicious nodule or mass lesion appreciated. No consolidation. No effusion. No pneumothorax. No obvious adenopathy noted. Atherosclerotic changes to the thoracic aorta and coronary arteries identified without aortic aneurysm or cardiomegaly. No pericardial effusion. Surrounding musculoskeletal structures without acute abnormality. IMPRESSION: Left upper lobe nodule appears increased to 25 mm. <Electronically signed by Federico Urena > 09/16/20 [id number]
== END ==
LOC: M RAD 07:22
PROVIDERS: ATTEND Internal Medicine Pulmonary Disease
DX: R91.1 Solitary pulmonary nodule (principal)

== ENCOUNTER → 2020-10-27 | Outpatient (CLI) | payer OTHER | LOC: M LABSMTC 08:55 | PROVIDERS: ATTEND Anesthesiology | DX: Z01.812 Encounter for preprocedural laboratory examination (principal); Z20.822 Contact with and (suspected) exposure to COVID-19 ==

== ENCOUNTER → 2020-10-28 | Outpatient (CLI) | payer OTHER ==
[2020-10-28 14:04] LABS: ABG BASE EXCESS -3.5 (-2.0-2.0); ABG HCO3 20.5 MEQ/L (22.0-26.0); ABG O2 SATURATION 96.1 % (95.0-99.0); ABG PARTIAL PRESSURE CO2 34.7 mmHg (35.0-45.0); ABG PARTIAL PRESSURE O2 77.3 mmHg (75.0-100.0); ABG STANDARD HCO3 21.6 MEQ/L (22.0-26.0); ABG TOTAL CO2 21.6 MEQ/L (22.0-29.0)
--- NOTE | 2020-10-28 14:15 | REP ---
INDICATION: PULMONDARY NODULE COMPARISON: 10/17/2019 TECHNIQUE: PA and lateral. FINDINGS: The mediastinum and cardiac silhouette are normal. Guggxw-V-Gzlx with tip in the SVC remains stable. The lung malin demonstrate chronic changes without acute consolidation, effusion, or pneumothorax. The skeletal structures are intact and normal. IMPRESSION: No acute cardiopulmonary process. <Electronically signed by Federico Urena > 10/28/20 [id number]
[2020-10-28 14:22] LABS: HEMATOCRIT 52.6 % (42.0-52.0); HEMOGLOBIN 17.3 g/dl (13.5-17.5); MEAN CORPUSCULAR HEMOGLOBIN 30.7 pg (27.0-33.0); MEAN CORPUSCULAR HGB CONC 32.9 g/dl (32.0-36.5); MEAN CORPUSCULAR VOLUME 93.4 fl (80.0-96.0); PLATELET COUNT, AUTOMATED 189 10^3/uL (150-450); RED BLOOD COUNT 5.63 10^6/uL (4.30-6.10); WHITE BLOOD COUNT 6.1 10^3/uL (4.0-10.0)
[2020-10-28 14:35] LABS: INR 0.93; PROTHROMBIN TIME 12.7 SECONDS (12.5-14.3)
[2020-10-28 14:36] LABS: PARTIAL THROMBOPLASTIN TIME 34.8 SECONDS (24.2-38.5)
[2020-10-28 15:16] LABS: BLOOD UREA NITROGEN 12 MG/DL (7-18); CARBON DIOXIDE LEVEL 29 MEQ/L (21-32); CHLORIDE LEVEL 104 MEQ/L (98-107); GLOMERULAR FILTRATION RATE > 60.0 (>56); GLUCOSE, FASTING 129 MG/DL (70-100); POTASSIUM SERUM 3.9 MEQ/L (3.5-5.1); SODIUM LEVEL 138 MEQ/L (136-145)
--- NOTE | 2020-10-28 18:47 | ECGEPIP ---
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
== END ==
LOC: M ADMPAT 12:44
PROVIDERS: ATTEND Thoracic Surgery (Cardiothoracic Vascular Surgery)
DX: R91.1 Solitary pulmonary nodule (principal)

== ENCOUNTER → 2020-12-01 | Outpatient (CLI) | payer OTHER ==
--- NOTE | 2020-12-01 09:52 | REP ---
INDICATION: PAIN IN JOINTS OF LEFT HAND. Left 1st metacarpal pain. COMPARISON: Comparison left finger images 02/02/2015.. TECHNIQUE: Four views of the left hand are obtained. FINDINGS: Four views of the left hand demonstrate 2 tiny metallic densities in the thenar soft tissues representing metallic foreign bodies. One of these appears to have been visible on the 02/02/2015 prior finger radiographs although it as a finger series, field of view is limited.. Overall mineralization pattern is normal. No fracture or subluxation is seen. There is mild osteoarthritis at the 1st carpometacarpal joint with narrowing and early spur formation. A small subcortical cyst is seen in the distal end of the 3rd metacarpal and mild osteoarthritic changes are noted at the DIP joints of the index long and small fingers. No bony erosive or destructive lesion is seen.. . IMPRESSION: Two tiny metallic foreign bodies in the thenar soft tissues. Osteoarthritic changes as noted above. No acute abnormality.. <Electronically signed by Domenic Joyner > 12/01/20 0955
== END ==
LOC: M RAD 08:52
PROVIDERS: ATTEND Physician Assistant
DX: M25.542 Pain in joints of left hand (principal); M19.042 Primary osteoarthritis, left hand; M79.5 Residual foreign body in soft tissue

== ENCOUNTER → 2020-12-12 | Outpatient (CLI) | payer OTHER ==
[~2020-12-12] MED LIST changes: +VITMTA PO
--- NOTE | 2020-12-12 19:37 | REP ---
INDICATION: SOLITARY PULMONARY NODULE. COMPARISON: Comparison chest CT studies are reviewed from September 16, 2020 and March 25, 2020.. TECHNIQUE: Helical scanning is acquired. 3 mm axial images are generated. Coronal and sagittal MPR and coronal MIP images are generated. FINDINGS: Previously noted left upper lobe nodule is again seen, increased in size over the prior study from September 16, 2020. Its current dimensions are 2.3 x 2.2 x 2.6 cm. It has irregular nodular borders and some slight spiculation. No other pulmonary nodule is appreciated. Lung malin are otherwise clear. There is no evidence of pleural or pericardial effusion. No mediastinal adenopathy is seen. No obvious hilar adenopathy is observed. There is left coronary artery vascular calcification fairly extensively. Normal adrenal glands are observed. The visualized upper abdominal structures are unremarkable. No axillary or supraclavicular adenopathy is appreciated. A left-sided Onzflb-V-Gujy catheter is noted in place. IMPRESSION: Gradually enlarging left upper lobe nodule, now 2.6 cm in greatest diameter. <Electronically signed by Domenic Joyner > 12/12/201933
== END ==
LOC: M RAD 18:07
PROVIDERS: ATTEND Thoracic Surgery (Cardiothoracic Vascular Surgery)
DX: R91.1 Solitary pulmonary nodule (principal)

== ENCOUNTER → 2020-12-17 | Outpatient (CLI) | payer OTHER ==
[2020-12-17 13:57] LABS: ABG BASE EXCESS -1.5 (-2.0-2.0); ABG HCO3 23.3 MEQ/L (22.0-26.0); ABG O2 SATURATION 98.1 % (95.0-99.0); ABG PARTIAL PRESSURE CO2 40.1 mmHg (35.0-45.0); ABG STANDARD HCO3 23.2 MEQ/L (22.0-26.0); ABG TOTAL CO2 24.6 MEQ/L (22.0-29.0); ABG pH (ARTERIAL) 7.383 UNITS (7.350-7.450)
[2020-12-17 14:02] LABS: HEMATOCRIT 49.1 % (42.0-52.0); HEMOGLOBIN 15.8 g/dl (13.5-17.5); MEAN CORPUSCULAR HEMOGLOBIN 29.7 pg (27.0-33.0); MEAN CORPUSCULAR HGB CONC 32.2 g/dl (32.0-36.5); MEAN CORPUSCULAR VOLUME 92.3 fl (80.0-96.0); PLATELET COUNT, AUTOMATED 238 10^3/uL (150-450); RED BLOOD COUNT 5.32 10^6/uL (4.30-6.10); WHITE BLOOD COUNT 8.9 10^3/uL (4.0-10.0)
[2020-12-17 14:09] LABS: APPEARANCE, URINE CLEAR (CLEAR); BACTERIA, URINE AUTO NEGATIVE (NEGATIVE); BILIRUBIN, URINE AUTO NEGATIVE (NEGATIVE); BLOOD, URINE BLOOD NEGATIVE (NEGATIVE); COLOR, URINE YELLOW (YELLOW); GLUCOSE, URINE (UA) AUTO 3+ mg/dL (NEGATIVE); KETONE, URINE AUTO NEGATIVE (NEGATIVE); LEUKOCYTE ESTERASE, URINE AUTO NEGATIVE (NEGATIVE); MUCUS, URINE SMALL (NEGATIVE); NITRITE, URINE AUTO NEGATIVE (NEGATIVE); PROTEIN, URINE AUTO NEGATIVE (NEGATIVE); RBC, URINE AUTO 1 /HPF (0-3); SPECIFIC GRAVITY URINE AUTO 1.029 (1.002-1.035); SQUAMOUS EPITHELIAL CELL UR AU 0 /HPF (0-6); UROBILINOGEN, URINE AUTO 0.2 mg/dL (0.0-2.0); WBC, URINE AUTO 1 /HPF (0-3)
[2020-12-17 14:13] LABS: INR 0.92; PARTIAL THROMBOPLASTIN TIME 32.9 SECONDS (24.2-38.5); PROTHROMBIN TIME 12.5 SECONDS (12.5-14.3)
--- NOTE | 2020-12-17 14:25 | REP ---
INDICATION: PRE OP 23 COMPARISON: 10/28/2020 TECHNIQUE: PA and lateral. FINDINGS: Mediastinum and cardiac silhouette are stable with perihilar opacities suggesting adenopathy. Doippz-K-Ekwd again identified with tip in the SVC. Lung malin demonstrate chronic changes. Area of opacity in the left upper lung zone again identified and unchanged. No pneumothorax. No effusion. Skeletal structures are intact. IMPRESSION: No significant change from prior examination. <Electronically signed by Federico Urena > 12/17/20 [id number]
[2020-12-17 14:48] LABS: BLOOD UREA NITROGEN 9 MG/DL (7-18); CALCIUM LEVEL 9.3 MG/DL (8.5-10.1); CARBON DIOXIDE LEVEL 30 MEQ/L (21-32); CHLORIDE LEVEL 105 MEQ/L (98-107); CREATININE FOR GFR 0.98 MG/DL (0.70-1.30); GLOMERULAR FILTRATION RATE > 60.0 (>56); GLUCOSE, FASTING 134 MG/DL (70-100); POTASSIUM SERUM 4.3 MEQ/L (3.5-5.1); SODIUM LEVEL 138 MEQ/L (136-145)
--- NOTE | 2020-12-17 19:42 | ECGEPIP ---
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
== END ==
LOC: M ADMPAT 13:18
PROVIDERS: ATTEND Thoracic Surgery (Cardiothoracic Vascular Surgery)
DX: Z01.818 Encounter for other preprocedural examination (principal)

== ENCOUNTER → 2020-12-18 | Outpatient (CLI) | payer OTHER | LOC: M LABSMTC 12:21 | PROVIDERS: ATTEND Anesthesiology | DX: Z01.812 Encounter for preprocedural laboratory examination (principal); Z20.822 Contact with and (suspected) exposure to COVID-19 ==

== ENCOUNTER → 2020-12-23 | Outpatient (CLI) | payer OTHER ==
[~2020-12-23] VITALS: Ht 185.4 cm; Wt 157.4 kg
[~2020-12-23] MED LIST changes: +ALPR1TAB3 PO; +BUPIVACAINE HCL 0.5% 10ML VIAL As Ordered ONE; +BUPIVACAINE LIPOSOME/PF 1.3% 20ML VIAL (13.3MG/ML)(EXPAREL)(C9290 PER1MG) As Ordered ONE; +CETACAINE SPRAY 5GM As Ordered ONE; +LIDOCAINE 2% 100MG/5ML SDV (FOR ANES.) As Ordered ONE; +LR 1,000 ML IV ONE; +METO1TAB7 PO; +MIDAZOLAM INJ 2MG/2ML VIAL (J2250 PER 1MG) As Ordered ONE; +MUPIROCIN 2% OINT 22 GM TUBE As Ordered ONE; +MUPIROCIN 2% OINT 22 GM TUBE TOP ONE; +OZEM2INJ2 SC; +ROCURONIUM BROMIDE 50 MG/5 ML VIAL As Ordered ONE; +SM C PO; +ceFAZolin SOD 2 GM in IV 1 EA IV ONE; +fentaNYL 250 MCG/5 ML INJECTION (J3010) As Ordered ONE; +propofoL 200 MG/20 ML VIAL As Ordered ONE
[2020-12-23 07:04] VITALS: BP 144/84
[2020-12-23 07:53] LABS: COLLAGEN EPINEPHRINE 211 SECONDS (74-162)
[2020-12-23 08:00] LABS: COLLAGEN ADP 109 SECONDS (56-103)
== END ==
LOC: M OR 06:17 → M OROP 06:17 → UNDOADMIN 06:17 → EDSTATUS 08:15
PROVIDERS: ATTEND Thoracic Surgery (Cardiothoracic Vascular Surgery)
DX: R91.1 Solitary pulmonary nodule (principal); Z53.09 Procedure and treatment not carried out because of other contraindication

== ENCOUNTER → 2020-12-27 | Outpatient (CLI) | payer OTHER ==
[~2020-12-27] MED LIST changes: -BUPIVACAINE HCL 0.5% 10ML VIAL As Ordered ONE; -BUPIVACAINE LIPOSOME/PF 1.3% 20ML VIAL (13.3MG/ML)(EXPAREL)(C9290 PER1MG) As Ordered ONE; -CETACAINE SPRAY 5GM As Ordered ONE; -LIDOCAINE 2% 100MG/5ML SDV (FOR ANES.) As Ordered ONE; -LR 1,000 ML IV ONE; -MIDAZOLAM INJ 2MG/2ML VIAL (J2250 PER 1MG) As Ordered ONE; -MUPIROCIN 2% OINT 22 GM TUBE As Ordered ONE; -MUPIROCIN 2% OINT 22 GM TUBE TOP ONE; -ROCURONIUM BROMIDE 50 MG/5 ML VIAL As Ordered ONE; -ceFAZolin SOD 2 GM in IV 1 EA IV ONE; -fentaNYL 250 MCG/5 ML INJECTION (J3010) As Ordered ONE; -propofoL 200 MG/20 ML VIAL As Ordered ONE
== END ==
LOC: M LABSMTC 10:22
PROVIDERS: ATTEND Anesthesiology
DX: Z01.812 Encounter for preprocedural laboratory examination (principal); Z20.822 Contact with and (suspected) exposure to COVID-19

== ENCOUNTER 2020-12-30 06:56 | Inpatient (IN) | payer OTHER ==
[2020-12-30] VITALS (8 sets, daily range): BP systolic 100–147; BP diastolic 49–70; O2SAT 97
[~2020-12-30] VITALS: Ht 185.4 cm; Wt 161.3 kg
[~2020-12-30 06:56] MED LIST changes: -ALPR1TAB3 PO; +LIDOCAINE 1% MDV 20ML VIAL SQ PRN; -METO1TAB7 PO; +MUPIROCIN 2% OINT 22 GM TUBE TOP ONE; -OZEM2INJ2 SC; -SM C PO; +ceFAZolin SOD 2 GM in IV 1 EA IV ONE
[2020-12-30] MEDS ORDERED: LR 1,000 ML IV ONE (07:00)
[2020-12-30 07:20] LABS: HEMATOCRIT 47.3 % (42.0-52.0); HEMOGLOBIN 15.6 g/dl (13.5-17.5); MEAN CORPUSCULAR HEMOGLOBIN 30.5 pg (27.0-33.0); MEAN CORPUSCULAR VOLUME 92.6 fl (80.0-96.0); PLATELET COUNT, AUTOMATED 183 10^3/uL (150-450); RED BLOOD COUNT 5.11 10^6/uL (4.30-6.10); WHITE BLOOD COUNT 6.9 10^3/uL (4.0-10.0)
[2020-12-30] MEDS ORDERED: ALPR1TAB3 PO (07:32)
[2020-12-30] MEDS ORDERED: fentaNYL 100 MCG/2 ML INJECTION (J3010) IV PRN ×2 (08:10→14:15)
[2020-12-30] MEDS ORDERED: MIDAZOLAM INJ 2MG/2ML VIAL (J2250 PER 1MG) IV PRN (08:10)
[2020-12-30] MEDS ORDERED: LIDOCAINE 2% 100MG/5ML SDV (FOR ANES.) As Ordered ONE (08:28)
[2020-12-30] MEDS ORDERED: propofoL 200 MG/20 ML VIAL As Ordered ONE (08:28)
[2020-12-30] MEDS ORDERED: ONDANSETRON 4MG/2ML VIAL As Ordered ONE (08:28)
[2020-12-30] MEDS ORDERED: dexameTHASONE 4 MG/ML 1ML VIAL (J1100 PER 1MG) As Ordered ONE (08:28)
[2020-12-30] MEDS ORDERED: fentaNYL 250 MCG/5 ML INJECTION (J3010) As Ordered ONE (08:28)
[2020-12-30] MEDS ORDERED: SUGAMMADEX SODIUM 500 MG/5 ML VIAL (BRIDION) As Ordered ONE (08:28)
[2020-12-30] MEDS ORDERED: ROCURONIUM BROMIDE 50 MG/5 ML VIAL As Ordered ONE ×2 (08:28→10:48)
[2020-12-30] MEDS ORDERED: METOCLOPRAMIDE INJ 10MG/2ML VIAL (J2765 PER 1) As Ordered ONE (08:28)
[2020-12-30] MEDS ORDERED: MIDAZOLAM INJ 2MG/2ML VIAL (J2250 PER 1MG) As Ordered ONE (08:28)
[2020-12-30] MEDS ORDERED: BUPIVACAINE HCL 0.25% 30ML VIAL As Ordered ONE (08:28)
[2020-12-30] MEDS ORDERED: CETACAINE SPRAY 5GM As Ordered ONE ×2 (08:49→10:15)
[2020-12-30] MEDS ORDERED: BUPIVACAINE HCL 0.5% 10ML VIAL As Ordered ONE (08:49)
[2020-12-30] MEDS ORDERED: BUPIVACAINE LIPOSOME/PF 1.3% 20ML VIAL (13.3MG/ML)(EXPAREL)(C9290 PER1MG) As Ordered ONE (08:50)
[2020-12-30] MEDS ORDERED: diphenhydrAMINE 50MG/ML VIAL (J1200) IV PRN (08:55)
[2020-12-30] MEDS ORDERED: METOCLOPRAMIDE INJ 10MG/2ML VIAL (J2765 PER 1) IV PRN (08:55)
[2020-12-30] MEDS ORDERED: NALOXONE INJ 0.4MG/1ML VIAL (J2310 PER 1MG) IV PRN (08:55)
[2020-12-30] MEDS ORDERED: ONDANSETRON 4MG/2ML VIAL IV PRN ×3 (08:55→14:15)
[2020-12-30] MEDS ORDERED: EPIDURAL/PCA KEYS XX PRN (08:55)
[2020-12-30] MEDS ORDERED: WALLBOXKEY XX PRN (08:55)
[2020-12-30] MEDS ORDERED: BACITRACIN OINTMENT 30GM TUBE As Ordered ONE (09:43)
[2020-12-30] MEDS ORDERED: MUPIROCIN 2% OINT 22 GM TUBE As Ordered ONE (09:44)
[2020-12-30] MEDS ORDERED: DESFLURANE 240 ML INHALANT As Ordered ONE ×2 (10:16→12:31)
[2020-12-30] MEDS ORDERED: PHENYLephrine 500MCG 5ML (100MCG/ML) SYRINGE As Ordered ONE (10:19)
[2020-12-30] MEDS ORDERED: ACETAMINOPHEN 1000MG 100ML IV BTL (OFIRMEV) (J0131 PER 10MG) As Ordered ONE (10:30)
[2020-12-30] MEDS ORDERED: NORCO, ANEXSIA 5/325MG TABLET (HYDROcodone/ACETAMINOPHEN) PO PRN (13:35)
[2020-12-30] MEDS ORDERED: PERCOCET 5MG/325MG TAB PO PRN ×2 (13:35)
[2020-12-30] MEDS ORDERED: LEVALBUTEROL 1.25 MG/0.5 ML CONCENTRATE NEB NEB PRN (13:35)
[2020-12-30] MEDS ORDERED: ACETAMINOPHEN TAB 650MG DOSE (2X325MG) PO PRN (13:35)
[2020-12-30] MEDS ORDERED: BISACODYL 10 MG SUPP PR PRN (13:35)
[2020-12-30 13:53] LABS: ABG BASE EXCESS -7.7 (-2.0-2.0); ABG HCO3 19.6 MEQ/L (22.0-26.0); ABG O2 SATURATION 96.1 % (95.0-99.0); ABG PARTIAL PRESSURE CO2 46.2 mmHg (35.0-45.0); ABG PARTIAL PRESSURE O2 85.2 mmHg (75.0-100.0); ABG STANDARD HCO3 18.3 MEQ/L (22.0-26.0)
[2020-12-30 13:57] LABS: ABG pH (ARTERIAL) 7.245 UNITS (7.350-7.450)
[2020-12-30] MEDS ORDERED: SODIUM BICARBONATE 8.4% INJ 50 ML SYRINGE IV STA ×2 (14:00→15:08)
[2020-12-30 14:04] LABS: BASO # 0.1 10^3/uL (0.0-0.2); BASO % 0.4 % (0.0-1.0); EOS % 0.2 % (0.0-3.0); HEMATOCRIT 48.2 % (42.0-52.0); HEMOGLOBIN 16.2 g/dl (13.5-17.5); LYMPH # 1.4 10^3/uL (1.5-5.0); LYMPH % 8.8 % (24.0-44.0); MEAN CORPUSCULAR HEMOGLOBIN 31.1 pg (27.0-33.0); MEAN CORPUSCULAR HGB CONC 33.6 g/dl (32.0-36.5); MEAN CORPUSCULAR VOLUME 92.5 fl (80.0-96.0); MONO # 0.4 10^3/uL (0.0-0.8); MONO % 2.3 % (2.0-8.0); NEUTROPHILS # 13.7 10^3/uL (1.5-8.5); NEUTROPHILS % 87.3 % (36.0-66.0); PLATELET COUNT, AUTOMATED 231 10^3/uL (150-450); RED BLOOD COUNT 5.21 10^6/uL (4.30-6.10); WHITE BLOOD COUNT 15.7 10^3/uL (4.0-10.0)
[2020-12-30] MEDS ORDERED: OZEM2INJ2 SC (14:07)
[2020-12-30] MEDS ORDERED: SM C PO (14:07)
[2020-12-30] MEDS ORDERED: METO1TAB7 PO (14:07)
[2020-12-30] MEDS ORDERED: HYDROMORPHONE HCL 0.5 MG/ 0.5 ML SYRINGE (J1170 PER 1) IV PRN (14:15)
[2020-12-30] MEDS ORDERED: oxyCODONE 5MG TAB PO PRN (14:15)
[2020-12-30] MEDS ORDERED: KETOROLAC 30 MG/ML 1ML VIAL IV PRN (14:15)
[2020-12-30 14:19] LABS: BLOOD UREA NITROGEN 16 MG/DL (7-18); CALCIUM LEVEL 8.7 MG/DL (8.5-10.1); CARBON DIOXIDE LEVEL 23 MEQ/L (21-32); CHLORIDE LEVEL 109 MEQ/L (98-107); CREATININE FOR GFR 1.04 MG/DL (0.70-1.30); GLOMERULAR FILTRATION RATE > 60.0 (>56); GLUCOSE, FASTING 246 MG/DL (70-100); POTASSIUM SERUM 4.6 MEQ/L (3.5-5.1); SODIUM LEVEL 140 MEQ/L (136-145)
[2020-12-30] MEDS: FENTANYL/BUPIVACAINE/NACL BAG 250 ML EPIDURAL SCH (14:21)
--- NOTE | 2020-12-30 14:51 | REP ---
INDICATION: lung wedge resection left. COMPARISON: Comparison chest x-ray December 17, 2020. TECHNIQUE: Portable upright AP chest radiograph. FINDINGS: Two left-sided chest tubes are noted in place. A left-sided Nexnhr-Q-Moyu catheter is visible. There is left perihilar opacity consistent with atelectasis in the left upper lobe distribution. On the right there is a bandlike density along the course of the minor fissure suggesting right middle lobe collapse. Soft tissue emphysema is seen along the right lateral chest wall and in the soft tissues of the right neck. An epidural catheter is noted along with EKG monitoring electrodes. IMPRESSION: Findings suggest right middle lobe collapse. Left perihilar atelectatic changes. Two left chest tubes in place. Extra thoracic soft tissue air on the right.. <Electronically signed by Domenic Joyner > 12/30/20 [id number]
[2020-12-30] MEDS ORDERED: KCL 20MEQ IN D5/NS 1000ML 1,000 ML IV SCH (15:00)
[2020-12-30 15:03] LABS: ABG BASE EXCESS -5.7 (-2.0-2.0); ABG HCO3 20.7 MEQ/L (22.0-26.0); ABG O2 LITER FLOW 4; ABG O2 SATURATION 94.8 % (95.0-99.0); ABG PARTIAL PRESSURE CO2 43.4 mmHg (35.0-45.0); ABG PARTIAL PRESSURE O2 75.5 mmHg (75.0-100.0); ABG STANDARD HCO3 19.8 MEQ/L (22.0-26.0); ABG pH (ARTERIAL) 7.296 UNITS (7.350-7.450)
[2020-12-30 16:09] LABS: ABG HCO3 22.1 MEQ/L (22.0-26.0); ABG O2 LITER FLOW 4; ABG O2 SATURATION 95.8 % (95.0-99.0); ABG PARTIAL PRESSURE CO2 43.6 mmHg (35.0-45.0); ABG PARTIAL PRESSURE O2 74.3 mmHg (75.0-100.0); ABG STANDARD HCO3 21.2 MEQ/L (22.0-26.0); ABG TOTAL CO2 23.4 MEQ/L (22.0-29.0); ABG pH (ARTERIAL) 7.322 UNITS (7.350-7.450)
--- NOTE | 2020-12-30 16:12 | RO ---
OPERATIVE NOTE DATE OF OPERATION: 12/30/2020 PREPROCEDURE DIAGNOSIS: Left upper lobe lung lesion. POSTPROCEDURE DIAGNOSIS: Left upper lobe lung lesion with resection showing metastatic colon cancer. PROCEDURE: Thoracoscopy followed by thoracotomy and wedge resection left upper lobe, five level rib block, and bronchoscopy. SURGEON: Constantine Gay M.D. MEDIA COORDINATOR: ANESTHESIA: FINDINGS: Bronchoscopy revealed a normal branching tracheobronchial tree. There were no endobronchial lesions. There were copious amounts of secretions, which were cleared with suction and aspiration. The thoracoscopy revealed a complete fissure, but I could not see the lesion in the left upper lobe as it was deep to the pleura and rather central. I therefore had to convert to a thoracotomy, where the lesion was found to be quite discrete, nodular, and almost spherical. This was able to be wedged out with axillary incisions. The thoracotomy was quite difficult secondary to his size of 157 kg or 345 pounds. The closure was also as difficult. DESCRIPTION OF PROCEDURE: Under satisfactory general anesthesia and single-lumen tube endotracheal intubation, bronchoscope was placed into the tracheobronchial tree. The above findings were noted. Segmental and subsegmental bronchus was thoroughly inspected and there were no endobronchial lesions seen. There were copious amounts of secretions, which had to be suction aspirated. The patient then underwent double-lumen tube endotracheal intubation with the position confirmed with bronchoscopy. He was then turned into the right lateral decubitus position. This took numerous personnel in the operating room to do so. The patient was then prepped and draped in the usual sterile fashion and a posterolateral thoracotomy incision was made. The patient was not only morbidly obese, but had hypertrophied postural muscles. The tissue was quite adhesive and dense. Ribs were counted and his chest was entered through the fifth intercostal space just above the sixth rib. This also took quite a bit of manipulation. Finally, the lung could be well visualized. The fissure was complete and I could then palpate the lesion, it is as described above. Through an axillary incision, an [place] stapler could be placed, and the entire lesion could be wedged out without destroying potential dissection planes. Frozen section, however, revealed this to be metastatic colon carcinoma and therefore, the planned lobectomy was abandoned. The lung was thoroughly palpated to look for any other lesions of which I could find none. There were no enlarged lymph nodes in the AP window and I did not dissect them, as this turned into a metastectomy. Two chest tubes were placed #24 straight and curved anterior and posterolaterally respectively. Five level rib block consisting of marcaine and Exparel were then instilled and the ribs were reapproximated with six #1 hkdwid-bw-hrjti Prolene sutures. The extrathoracic muscles with running 0-Vicryl suture. The subcutaneous tissue was closed with running 3-0 Vicryl suture and the skin closed with running 3-0 Monocryl subcuticular suture. Prior to final closure, the muscle layers were infiltrated with Exparel and marcaine mixture. It should be noted that not only was the latissimus dorsi divided in order to expose the chest, the serratus anterior was also divided. The patient tolerated the procedure well and left the operating room in satisfactory condition to the recovery room. AMISH
[2020-12-30] MEDS: MOM 30ML SUSPENSION UDC PO SCH (16:55)
[2020-12-30] MEDS: ceFAZolin SOD 1 GM in D5W MINI-BAG PLUS 50 ML IV SCH (16:57)
[2020-12-30] MEDS: PANTOPRAZOLE 40MG TAB (PROTONIX) PO SCH (16:58)
[2020-12-30] MEDS: KETOROLAC 30 MG/ML 1ML VIAL IV SCH ×2 (16:58→20:59)
[2020-12-30] MEDS: LEVALBUTEROL 1.25 MG/0.5 ML CONCENTRATE NEB NEB SCH (19:51)
[2020-12-30] MEDS: DOCUSATE SODIUM 100MG CAPSULE PO SCH (20:56)
[2020-12-30] MEDS: HEPARIN SOD (PORCINE) 5000UNITS/ML 1ML VIAL/SYRINGE SC SCH (20:59)
[2020-12-31] VITALS (8 sets, daily range): BP systolic 96–137; BP diastolic 55–80
[2020-12-31] MEDS: ceFAZolin SOD 1 GM in D5W MINI-BAG PLUS 50 ML IV SCH ×3 (00:28→18:11)
[2020-12-31] MEDS: LEVALBUTEROL 1.25 MG/0.5 ML CONCENTRATE NEB NEB SCH ×4 (01:08→19:38)
[2020-12-31] MEDS: KETOROLAC 30 MG/ML 1ML VIAL IV SCH ×4 (04:06→21:22)
[2020-12-31 06:04] LABS: ABG BASE EXCESS -0.3 (-2.0-2.0); ABG HCO3 24.7 MEQ/L (22.0-26.0); ABG O2 SATURATION 96.6 % (95.0-99.0); ABG PARTIAL PRESSURE CO2 41.4 mmHg (35.0-45.0); ABG PARTIAL PRESSURE O2 78.6 mmHg (75.0-100.0); ABG STANDARD HCO3 24.2 MEQ/L (22.0-26.0); ABG TOTAL CO2 25.9 MEQ/L (22.0-29.0); ABG pH (ARTERIAL) 7.393 UNITS (7.350-7.450)
[2020-12-31 06:17] LABS: BASO % 0.2 % (0.0-1.0); EOS # 0.1 10^3/uL (0.0-0.5); EOS % 0.5 % (0.0-3.0); HEMATOCRIT 42.6 % (42.0-52.0); LYMPH # 1.4 10^3/uL (1.5-5.0); LYMPH % 10.8 % (24.0-44.0); MEAN CORPUSCULAR HEMOGLOBIN 30.6 pg (27.0-33.0); MEAN CORPUSCULAR HGB CONC 32.9 g/dl (32.0-36.5); MEAN CORPUSCULAR VOLUME 93.2 fl (80.0-96.0); MONO % 8.3 % (2.0-8.0); NEUTROPHILS % 79.9 % (36.0-66.0); PLATELET COUNT, AUTOMATED 184 10^3/uL (150-450); RED BLOOD COUNT 4.57 10^6/uL (4.30-6.10); WHITE BLOOD COUNT 12.6 10^3/uL (4.0-10.0)
[2020-12-31 06:47] LABS: BLOOD UREA NITROGEN 18 MG/DL (7-18); CALCIUM LEVEL 8.4 MG/DL (8.5-10.1); CARBON DIOXIDE LEVEL 27 MEQ/L (21-32); CHLORIDE LEVEL 106 MEQ/L (98-107); CREATININE FOR GFR 0.95 MG/DL (0.70-1.30); GLOMERULAR FILTRATION RATE > 60.0 (>56); GLUCOSE, FASTING 170 MG/DL (70-100); POTASSIUM SERUM 3.8 MEQ/L (3.5-5.1); SODIUM LEVEL 139 MEQ/L (136-145)
--- NOTE | 2020-12-31 08:56 | REP ---
INDICATION: lung wedge resection left. COMPARISON: Portable chest dated 12/30/2020. TECHNIQUE: PA and lateral chest. FINDINGS: The 2 left thoracotomy tubes are unchanged. There is no pneumothorax. There is focal increased density in the left suprahilar area, likely atelectasis. There is a left subclavian Rpxmcn-Q-Nvgo catheter with the tip in the right atrium in satisfactory location, unchanged. There is an epidural catheter, unchanged. There is faintly visible density outlining the superior margin of the right minor fissure suggestive an infiltrate inferiorly in the right upper lobe. There is subcutaneous emphysema in the soft tissues at the base of the neck on the right and in the soft tissues lateral to the liver and right costophrenic angle on the right. IMPRESSION: Probable infiltrate/atelectasis in the left suprahilar area. Probable infiltrate inferiorly in the right upper lobe. No pneumothorax. Subcutaneous emphysema at the base of the neck on the right and lateral to the liver and right costophrenic angle on the right. Two left thoracotomy tubes, epidural catheter and Xpbdig-V-Yewr catheter are unchanged. <Electronically signed by Valdo Davis > 12/31/20 0853
[2020-12-31] MEDS: MOM 30ML SUSPENSION UDC PO SCH (09:00)
[2020-12-31] MEDS: PANTOPRAZOLE 40MG TAB (PROTONIX) PO SCH (09:04)
[2020-12-31] MEDS: DOCUSATE SODIUM 100MG CAPSULE PO SCH ×2 (09:04→21:21)
[2020-12-31] MEDS: HEPARIN SOD (PORCINE) 5000UNITS/ML 1ML VIAL/SYRINGE SC SCH ×2 (09:05→21:21)
[2020-12-31] MEDS: FENTANYL/BUPIVACAINE/NACL BAG 250 ML EPIDURAL SCH (14:16)
--- NOTE | 2020-12-31 14:32 | IPN ---
PROGRESS NOTE DATE: 12/31/2020 SUBJECTIVE: This is now the first postoperative day for Mr. Hines status post a thoracotomy and wedge resection. The pathology has been confirmed as metastatic colon carcinoma. He has had a fairly comfortable night. I am gratified that his pain is only between a 3 and a 4. OBJECTIVE: VITAL SIGNS: Show a T-max of 98.6 with a heart rate that ranges between 107 and 94 in sinus rhythm. Respiratory rate of 18 to 22 without the use of accessory muscles who is 92% to 94% saturated on 2 liters nasal cannula and whose blood pressure is ranging between 137/71 to 96/55. INTAKE AND OUTPUT: Over the past 24 hours has been recorded as 1767 in and 1440 out for a positivity of 320 mL. He has put out 145 mL from the chest tube and there is no air leak. Weight today is 162.7 kg. RESPIRATORY: He has equal breath sounds on either side. There are some inspiratory rales faintly heard. Percussion notes are full to the diaphragm. CARDIAC: Without murmurs, clicks, gallops, or rubs. I cannot feel his PMI. S1 and S2 are normal. ABDOMEN: Soft and nontender. Bowel sounds are positive. There is no hepatomegaly that I can appreciate through his obesity. EXTREMITIES: Show no pretibial edema. No calf tenderness. No differential swelling of the upper extremities. SKIN: Warm, dry, and perfused without cyanosis or mottling, including that of the nail beds and knees. NECK: Supple. There is no jugular venous distention. No subcutaneous emphysema. Trachea is midline. MOUTH: Shows the mucous membranes to be pink and moist. Lips and commisures are without lesions and no thrush. EYES: Show his pupils equal and reactive. Extraocular movements are intact. Sclerae nonicteric. NEUROLOGIC: Shows II through XII intact. Normal gross motor, gross sensation intact. Gait is not tested. PSYCHIATRIC: Shows him to be awake, alert, and oriented x3 with appropriate mood and affect and conversational. LABORATORY DATA: His white count today is 12.6 with a hemoglobin and hematocrit of 14.0 and 42.6 respectively. Platelet count 184,000 stable. Differential shows 79% neutrophils, 10% lymphocytes, and 6% monocytes. There are no immature forms and no toxic granulations. Electrolytes are normal with a BUN and creatinine of 18 and 0.95, glucose of 170, and calcium 8.4. Blood gases today have normalized with a pH of 7.39, pCO2 of 41, and a pO2 of 78 on 2 liters nasal cannula with a base excess of -0.3. IMAGING DATA: His chest x-ray shows his lungs fully expand to the chest wall. Atelectasis on the right side has now resolved from yesterday. Chest tubes are in good place. There are no posterior infiltrates on the lateral film. IMPRESSION: 1. Metastatic colon carcinoma to the lung. 2. Postoperative day #1 status post thoracotomy with wedge resection. 3. Obesity. 4. Chronic obstructive pulmonary disease (COPD). 5. Hyperlipidemia. 6. Coronary artery disease previously on Plavix. 7. Hypertension. 8. Diabetes. PLAN AND DISCUSSION: I will transfer him to the progressive care unit (PCU) today. We will discontinue his arterial line. He is doing gratifyingly quite well particularly with his pain control. We will continue his chest tube on suction for now even though there is no air leak.
[2021-01-01] VITALS (16 sets, daily range): BP systolic 120–158; BP diastolic 63–82; O2SAT 90–94
[2021-01-01] MEDS: ceFAZolin SOD 1 GM in D5W MINI-BAG PLUS 50 ML IV SCH ×2 (00:59→09:03)
[2021-01-01] MEDS: LEVALBUTEROL 1.25 MG/0.5 ML CONCENTRATE NEB NEB SCH ×4 (02:31→20:10)
[2021-01-01] MEDS: KETOROLAC 30 MG/ML 1ML VIAL IV SCH ×4 (04:00→21:18)
[2021-01-01 06:05] LABS: BASO % 0.3 % (0.0-1.0); EOS # 0.3 10^3/uL (0.0-0.5); EOS % 3.3 % (0.0-3.0); HEMATOCRIT 41.9 % (42.0-52.0); HEMOGLOBIN 13.7 g/dl (13.5-17.5); LYMPH # 1.2 10^3/uL (1.5-5.0); LYMPH % 11.7 % (24.0-44.0); MEAN CORPUSCULAR HEMOGLOBIN 30.8 pg (27.0-33.0); MEAN CORPUSCULAR HGB CONC 32.7 g/dl (32.0-36.5); MEAN CORPUSCULAR VOLUME 94.2 fl (80.0-96.0); MONO # 0.8 10^3/uL (0.0-0.8); MONO % 7.7 % (2.0-8.0); NEUTROPHILS # 7.9 10^3/uL (1.5-8.5); NEUTROPHILS % 76.7 % (36.0-66.0); PLATELET COUNT, AUTOMATED 153 10^3/uL (150-450); RED BLOOD COUNT 4.45 10^6/uL (4.30-6.10); WHITE BLOOD COUNT 10.2 10^3/uL (4.0-10.0)
[2021-01-01 06:28] LABS: BLOOD UREA NITROGEN 18 MG/DL (7-18); CALCIUM LEVEL 8.5 MG/DL (8.5-10.1); CARBON DIOXIDE LEVEL 28 MEQ/L (21-32); CHLORIDE LEVEL 105 MEQ/L (98-107); GLOMERULAR FILTRATION RATE > 60.0 (>56); GLUCOSE, FASTING 201 MG/DL (70-100); POTASSIUM SERUM 3.6 MEQ/L (3.5-5.1); SODIUM LEVEL 138 MEQ/L (136-145)
--- NOTE | 2021-01-01 07:51 | REP ---
INDICATION: lung wedge resection left COMPARISON: 12/31/2020 TECHNIQUE: PA and lateral. FINDINGS: A small left apical pneumothorax is identified and similar to prior examination.. Postsurgical changes involving the left hemithorax including stable chest tubes along with subtle scattered airspace disease again noted and unchanged. Subtle right-sided opacities cannot be excluded as well. No obvious effusion. Mediastinum and cardiac silhouette are within normal limits and stable. IMPRESSION: 1. Small stable left apical pneumothorax along with subtle suspected bilateral airspace disease. <Electronically signed by Federico Urena > 01/01/21 0701
[2021-01-01] MEDS: MOM 30ML SUSPENSION UDC PO SCH (09:00)
[2021-01-01] MEDS: PANTOPRAZOLE 40MG TAB (PROTONIX) PO SCH (09:00)
[2021-01-01] MEDS: HEPARIN SOD (PORCINE) 5000UNITS/ML 1ML VIAL/SYRINGE SC SCH ×2 (09:00→21:17)
[2021-01-01] MEDS: DOCUSATE SODIUM 100MG CAPSULE PO SCH ×2 (09:02→21:17)
--- NOTE | 2021-01-01 12:13 | IPN ---
PROGRESS NOTE DATE: 01/01/2021 This is now the second postoperative day for Mr. Hines. His pain is only a 2, and I am quite gratified at his pain control considering his incision. His vital signs show a maximum temperature of 97.3 with a heart rate that ranges between 103-107 in a sinus rhythm, respiratory rate of 19-20 without the use of accessory muscles, who is 95%-94% saturated on 2 liters nasal cannula and whose blood pressure is ranging between 147/82 to 130/72. His intake and output for the past 24 hours has been recorded as 2000 in and 1280 out for a positivity of 720 mL. He has put out 170 mL from the chest tube, and there is no air leak. He weighs 164.5 kg today compared to 162.7 kg yesterday. PHYSICAL EXAMINATION: He has equal breath sounds on either side with scattered rhonchi on both sides. Percussion notes are full to the diaphragm. Cardiac exam is without murmurs, clicks, gallops, or rubs. I cannot feel his point of maximal impulse (PMI). S1 and S2 are normal. Abdomen is soft and nontender but tympanitic and slightly distended. He is having flatus but has not had a bowel movement. I cannot appreciate hepatomegaly through his obesity. Extremities show no pretibial edema, no calf tenderness, no differential swelling of the upper extremities. Skin is warm, dry, and perfused without cyanosis or mottling, including that of the nailbeds and knees. Neck is supple. There is no jugular venous distention. No subcutaneous emphysema. Trachea is midline. Mouth shows the mucous membranes to be pink and moist. Lips and commissures without lesions. No thrush. Eyes show his pupils to be equal and reactive. Extraocular motion intact. Sclerae anicteric. Neurologic shows II-XII intact. Normal gross motor, gross sensation intact. Gait is not tested. Psychiatric shows hm to be awake, alert, and oriented times three with appropriate mood and affect and conversational. His white count today is 10.2 with a hemoglobin and hematocrit of 13.7 and 41.9, respectively. Platelet count 153 and stable, and differential shows 76% neutrophils, 11% lymphocytes, 7% monocytes. There are no immature forms or toxic granulations. His electrolytes are normal with a BUN and creatinine of 18 and 0.8, glucose of 201, and calcium of 8.5. He remains or Toradol. His chest x-ray shows his lung fully expanded to the chest wall. There is fluid in the left major fissure. Costophrenic angles are sharp, and chest tubes are in good place. There is no subcutaneous emphysema. IMPRESSION: 1. Metastatic colon carcinoma to the lung. 2. Postoperative day #2 status post thoracotomy and wedge resection. 3. Obesity. 4. Chronic obstructive pulmonary disease. 5. Hyperlipidemia. 6. Coronary artery disease, previously on Plavix. 7. Hypertension. 8. Diabetes. PLAN AND DISCUSSION: I will discontinue his chest tube suction today, as he has no air leak. I am incredibly gratified at his pain control. The real test of pain control is going to be when we wean the epidural, most likely tomorrow or the next day. Yesterday I informed the patient of his diagnosis being metastatic colon carcinoma and not primary lung cancer and therefore did not need to undergo lobectomy.
[2021-01-01] MEDS: FENTANYL/BUPIVACAINE/NACL BAG 250 ML EPIDURAL SCH (14:45)
[2021-01-02] VITALS (15 sets, daily range): BP systolic 128–142; BP diastolic 63–92; O2SAT 91–96
[2021-01-02] MEDS: LEVALBUTEROL 1.25 MG/0.5 ML CONCENTRATE NEB NEB SCH ×4 (02:05→19:43)
[2021-01-02] MEDS: KETOROLAC 30 MG/ML 1ML VIAL IV SCH ×4 (04:38→21:18)
[2021-01-02 06:08] LABS: BASO # 0.1 10^3/uL (0.0-0.2); BASO % 0.6 % (0.0-1.0); EOS # 0.6 10^3/uL (0.0-0.5); EOS % 6.4 % (0.0-3.0); HEMATOCRIT 41.9 % (42.0-52.0); HEMOGLOBIN 13.7 g/dl (13.5-17.5); LYMPH # 1.1 10^3/uL (1.5-5.0); LYMPH % 12.3 % (24.0-44.0); MEAN CORPUSCULAR HEMOGLOBIN 30.1 pg (27.0-33.0); MEAN CORPUSCULAR HGB CONC 32.7 g/dl (32.0-36.5); MEAN CORPUSCULAR VOLUME 92.1 fl (80.0-96.0); MONO # 0.6 10^3/uL (0.0-0.8); MONO % 6.5 % (2.0-8.0); NEUTROPHILS # 6.7 10^3/uL (1.5-8.5); NEUTROPHILS % 73.6 % (36.0-66.0); PLATELET COUNT, AUTOMATED 165 10^3/uL (150-450); RED BLOOD COUNT 4.55 10^6/uL (4.30-6.10); WHITE BLOOD COUNT 9.1 10^3/uL (4.0-10.0)
[2021-01-02 06:38] LABS: BLOOD UREA NITROGEN 14 MG/DL (7-18); CARBON DIOXIDE LEVEL 28 MEQ/L (21-32); CHLORIDE LEVEL 104 MEQ/L (98-107); CREATININE FOR GFR 0.67 MG/DL (0.70-1.30); GLOMERULAR FILTRATION RATE > 60.0 (>56); GLUCOSE, FASTING 193 MG/DL (70-100); POTASSIUM SERUM 3.6 MEQ/L (3.5-5.1); SODIUM LEVEL 137 MEQ/L (136-145)
--- NOTE | 2021-01-02 07:59 | REP ---
INDICATION: lung wedge resection left. COMPARISON: 01/01/2021 TECHNIQUE: Upright PA and lateral chest. FINDINGS: In the 2 left thoracotomy tubes are unchanged. No pneumothorax is identified on the study today. There is a subtle opacity in the left suprahilar area compatible with infiltrate. The right lung is clear. Cardiac size is upper normal. The lonny, mediastinum, and skeletal structures are unremarkable. There is a left subclavian [id number] with the tip in the superior vena cava in satisfactory location, unchanged. There is an epidural catheter, unchanged. IMPRESSION: No pneumothorax is identified today. The 2 left thoracotomy tubes are unchanged. Subtle left suprahilar infiltrate. <Electronically signed by Valdo Davis > 01/02/21 0326
[2021-01-02] MEDS: MOM 30ML SUSPENSION UDC PO SCH ×2 (08:09→08:16)
[2021-01-02] MEDS: DOCUSATE SODIUM 100MG CAPSULE PO SCH ×2 (08:10→21:18)
[2021-01-02] MEDS: PANTOPRAZOLE 40MG TAB (PROTONIX) PO SCH (08:10)
[2021-01-02] MEDS: HEPARIN SOD (PORCINE) 5000UNITS/ML 1ML VIAL/SYRINGE SC SCH ×2 (08:10→21:18)
[2021-01-02] MEDS ORDERED: FUROSEMIDE 40MG/4ML VIAL (J1940) IV ONE (08:35)
[2021-01-02] MEDS: FENTANYL/BUPIVACAINE/NACL BAG 250 ML EPIDURAL SCH (15:28)
--- NOTE | 2021-01-02 16:29 | IPN ---
PROGRESS NOTE DATE: 01/02/2021 This is now the third postoperative day for Mr. Hines. I had the intention of pulling his chest tubes today; however, he was noted to put out 230 mL in the morning shift, and I therefore rather than pull his chest tubes diuresed him. He is positive over 2000 mL. His pain is being well controlled using the epidural. His vital signs show a maximum temperature of 98.2 with a heart rate that ranges between 97-104 in a sinus rhythm, respiratory rate of 19-22 without the use of accessory muscles, who is 91%-96% saturated on room air, and whose blood pressure is ranging between 142/90 to 128/68. His intake and output for the past 24 hours has been recorded as 3740 in and 1360 out for a positivity of 2380 mL. He put out 110 mL from the chest tube yesterday but 230 mL in the last 8 hours. Weight today is 164.2 kg compared to 164.5 kg. PHYSICAL EXAMINATION: His lungs show equal breath sounds on either side with coarse rhonchi, which clear with coughing. Percussion note is full to the diaphragm. Cardiac exam is without murmurs, clicks, gallops, or rubs. I cannot feel his point of maximal impulse (PMI). S1 and S2 are normal. Abdomen is soft and nontender. Bowel sounds are positive. There is no hepatomegaly. No costovertebral angle (CVA) tenderness. He did have a bowel movement this morning. Extremities show trace pretibial edema. No calf tenderness, no differential swelling of the upper extremities. Skin is warm, dry, and perfused without cyanosis or mottling, including that of the nailbeds and knees. Neck is supple. There is no jugular venous distention. No subcutaneous emphysema. Trachea is midline. Mouth shows the mucous membranes to be pink and moist. Lips and commissures without lesions. No thrush. Eyes show his pupils to be equal and reactive. Extraocular motion intact. Sclerae anicteric. Neurologic shows II-XII intact. Normal gross motor, gross sensation intact. Gait is also intact. Psychiatric shows him to be awake, alert, and oriented times three with appropriate mood and affect and conversational. His white count is 9.1 with a hemoglobin and hematocrit of 13.7 and 41.9, respectively, unchanged from yesterday. Platelet count is 165 and stable. Differential shows 73% neutrophils, 12% lymphocytes, and 6% monocytes. There are no immature forms or toxic granulations. Chemistries show normal electrolytes with BUN and creatinine of 14 and 0.67, glucose of 193, and a calcium 9.0. His chest x-ray today shows the lungs fully expanded to the chest wall. Chest tubes are in good place. I see no posterior infiltrates. IMPRESSION: 1. Postoperative day #3 status post wedge resection/thoracotomy of two colon metastasis to the lung. 2. Obesity. 3. Chronic obstructive pulmonary disease (COPD). 4. Hyperlipidemia. 5. Coronary artery disease, previously on Plavix. 6. Hypertension. 7. Diabetes. PLAN AND DISCUSSION: As noted above, I will refrain from removing his chest tube today. I will rather diurese him with Lasix. I will keep him off suction. I am very gratified to his pain control response.
[2021-01-03] VITALS (12 sets, daily range): BP systolic 124–136; BP diastolic 68–77; O2SAT 93–96
[2021-01-03] MEDS: LEVALBUTEROL 1.25 MG/0.5 ML CONCENTRATE NEB NEB SCH ×4 (01:36→19:36)
[2021-01-03] MEDS: KETOROLAC 30 MG/ML 1ML VIAL IV SCH ×4 (04:18→21:44)
[2021-01-03 05:40] LABS: BASO % 0.5 % (0.0-1.0); EOS # 0.7 10^3/uL (0.0-0.5); EOS % 9.7 % (0.0-3.0); HEMATOCRIT 40.4 % (42.0-52.0); HEMOGLOBIN 13.3 g/dl (13.5-17.5); LYMPH # 1.2 10^3/uL (1.5-5.0); LYMPH % 15.6 % (24.0-44.0); MEAN CORPUSCULAR HEMOGLOBIN 30.6 pg (27.0-33.0); MEAN CORPUSCULAR HGB CONC 32.9 g/dl (32.0-36.5); MEAN CORPUSCULAR VOLUME 92.9 fl (80.0-96.0); MONO # 0.5 10^3/uL (0.0-0.8); NEUTROPHILS # 5.1 10^3/uL (1.5-8.5); NEUTROPHILS % 67.8 % (36.0-66.0); PLATELET COUNT, AUTOMATED 189 10^3/uL (150-450); RED BLOOD COUNT 4.35 10^6/uL (4.30-6.10); WHITE BLOOD COUNT 7.5 10^3/uL (4.0-10.0)
[2021-01-03 06:10] LABS: BLOOD UREA NITROGEN 17 MG/DL (7-18); CALCIUM LEVEL 8.3 MG/DL (8.5-10.1); CARBON DIOXIDE LEVEL 29 MEQ/L (21-32); CHLORIDE LEVEL 104 MEQ/L (98-107); GLOMERULAR FILTRATION RATE > 60.0 (>56); GLUCOSE, FASTING 191 MG/DL (70-100); POTASSIUM SERUM 3.6 MEQ/L (3.5-5.1); SODIUM LEVEL 139 MEQ/L (136-145)
--- NOTE | 2021-01-03 08:02 | REP ---
INDICATION: lung wedge resection left COMPARISON: 01/02/2021 TECHNIQUE: PA and lateral. FINDINGS: Two left-sided chest tubes are again identified. There is a stable left apical pneumothorax measuring roughly 2.5 cm from the lung apex. Subtle scattered bilateral airspace disease again noted and similar to prior examination. No definite effusion although layering pleural fluid cannot be excluded. The mediastinum and cardiac silhouette are stable. IMPRESSION: 1. Small stable left apical pneumothorax. 2. Subtle scattered bilateral airspace disease similar to prior examination. <Electronically signed by Federico Urena > 01/03/21 0752
[2021-01-03] MEDS: MOM 30ML SUSPENSION UDC PO SCH (09:00)
[2021-01-03] MEDS: HEPARIN SOD (PORCINE) 5000UNITS/ML 1ML VIAL/SYRINGE SC SCH ×2 (09:07→21:00)
[2021-01-03] MEDS: DOCUSATE SODIUM 100MG CAPSULE PO SCH ×2 (09:08→21:43)
[2021-01-03] MEDS: PANTOPRAZOLE 40MG TAB (PROTONIX) PO SCH (09:08)
[2021-01-03] MEDS ORDERED: FUROSEMIDE 40MG/4ML VIAL (J1940) IV ONE (11:15)
--- NOTE | 2021-01-03 13:12 | IPN ---
PROGRESS NOTE DATE: 01/03/2021 This is now the 4th postoperative day for Mr. Hines. His pain is still being well controlled with the epidural. His vital signs show a maximum temperature of 97.4 with a heart rate that ranges between 96-103 in a sinus rhythm, respiratory rate of 20-22 without the use of accessory muscles, who is 93%-96% saturated on room air and whose blood pressure is ranging between 136/70 to 126/69. His intake and output for the past 24 hours has been recorded as 780 in and 2320 out, for a negativity of 1540 mL. He has put out 310 mL in 24 hours up till midnight; however, in the last 24 hours he has put out 110 mL. His weight today is 160.2 kg compared to 164.2 kg yesterday. PHYSICAL EXAMINATION: His lungs show equal breath sounds on either side with coarse rhonchi, which clear with coughing. Percussion note is full to the diaphragm. Cardiac exam is without murmurs, clicks, gallops, or rubs. I cannot feel his point of maximal impulse (PMI). S1 and S2 are normal. Abdomen is soft and nontender. Bowel sounds are positive. There is no hepatomegaly. No costovertebral angle (CVA) tenderness. Extremities show 1+ pretibial edema. No calf tenderness, no differential swelling of the upper extremities. Skin is warm, dry, and perfused without cyanosis or mottling, including that of the nailbeds and knees. Neck is supple. There is no jugular venous distention. No subcutaneous emphysema. Trachea is midline. Mouth shows the mucous membranes to be pink and moist. Lips and commissures without lesions. No thrush. Eyes show his pupils to be equal and reactive. Extraocular motion intact. Sclerae anicteric. Neurologic shows II-XII intact. Normal gross motor, gross sensation intact. Gait is not tested. Psychiatric shows him to be awake, alert, and oriented times three with appropriate mood and affect and conversational. His white count today is 7.5 with a hemoglobin and hematocrit of 13.3 and 40.4, respectively. Platelet count is 189 and stable. Differential shows 67% neutrophils, 15% lymphocytes, 6% monocytes. There are no immature forms or toxic granulations. His chemistries show normal electrolytes with a BUN and creatinine of 17 and 0.7 with a glucose of 191 and a calcium of 8.3. His chest x-ray today shows his lung fully expanded to the chest wall. Chest tubes are in good place. There are no infiltrates. There is a little bit of fluid in what looks to be the minor fissure on the right side. IMPRESSION: 1. Postoperative day #4 status post wedge resection and thoracotomy of colon metastasis to the lung. 2. Obesity. 3. Chronic obstructive pulmonary disease. 4. Hyperlipidemia. 5. Coronary artery disease. 6. Hypertension. 7. Diabetes. PLAN AND DISCUSSION: I will discontinue his chest tubes today. I will again diurese him today. We will wean the epidural and discontinue the Gandhi. If the epidural wean goes well and the pain is controlled with oral medications, I will discharge him tomorrow.
[2021-01-03] MEDS: FENTANYL/BUPIVACAINE/NACL BAG 250 ML EPIDURAL SCH (14:00)
[2021-01-04] VITALS: BP 152/86; O2SAT 97
[2021-01-04] MEDS: LEVALBUTEROL 1.25 MG/0.5 ML CONCENTRATE NEB NEB SCH ×2 (02:14→07:12)
[2021-01-04 04:00] VITALS: BP 159/89; O2SAT 97
[2021-01-04] MEDS: KETOROLAC 30 MG/ML 1ML VIAL IV SCH ×2 (06:11→09:20)
[2021-01-04 06:44] LABS: BASO % 0.6 % (0.0-1.0); EOS # 0.7 10^3/uL (0.0-0.5); EOS % 9.8 % (0.0-3.0); HEMATOCRIT 40.4 % (42.0-52.0); HEMOGLOBIN 13.5 g/dl (13.5-17.5); LYMPH # 0.9 10^3/uL (1.5-5.0); LYMPH % 12.2 % (24.0-44.0); MEAN CORPUSCULAR HEMOGLOBIN 30.4 pg (27.0-33.0); MEAN CORPUSCULAR HGB CONC 33.4 g/dl (32.0-36.5); MONO # 0.5 10^3/uL (0.0-0.8); MONO % 7.1 % (2.0-8.0); NEUTROPHILS % 69.7 % (36.0-66.0); PLATELET COUNT, AUTOMATED 205 10^3/uL (150-450); RED BLOOD COUNT 4.44 10^6/uL (4.30-6.10); WHITE BLOOD COUNT 7.1 10^3/uL (4.0-10.0)
[2021-01-04 07:05] LABS: BLOOD UREA NITROGEN 14 MG/DL (7-18); CALCIUM LEVEL 8.5 MG/DL (8.5-10.1); CARBON DIOXIDE LEVEL 28 MEQ/L (21-32); CHLORIDE LEVEL 103 MEQ/L (98-107); CREATININE FOR GFR 0.65 MG/DL (0.70-1.30); GLOMERULAR FILTRATION RATE > 60.0 (>56); GLUCOSE, FASTING 222 MG/DL (70-100); POTASSIUM SERUM 3.5 MEQ/L (3.5-5.1); SODIUM LEVEL 139 MEQ/L (136-145)
[2021-01-04 07:23] VITALS: BP 154/87
--- NOTE | 2021-01-04 07:48 | REP ---
INDICATION: lung wedge resection left. COMPARISON: 01/03/2021 TECHNIQUE: Upright PA and lateral chest. FINDINGS: The 2 left thoracotomy tubes have been removed. There is a left apical pneumothorax measuring 1.6 cm, not significantly changed. I suspect there is a small left pleural effusion versus atelectasis. Right lung is clear. Cardiac size is normal. The left IJ Aeobfi-N-Rqhy is unchanged with the tip in the right atrium. IMPRESSION: The 2 left thoracotomy tubes have been removed. There is a persisting 1.6 cm left apical pneumothorax. Probable small left pleural effusion. <Electronically signed by aVldo Davis > 01/04/21 0268
[2021-01-04] MEDS: MOM 30ML SUSPENSION UDC PO SCH (09:00)
[2021-01-04] MEDS: DOCUSATE SODIUM 100MG CAPSULE PO SCH (09:19)
[2021-01-04] MEDS: PANTOPRAZOLE 40MG TAB (PROTONIX) PO SCH (09:19)
[2021-01-04] MEDS: HEPARIN SOD (PORCINE) 5000UNITS/ML 1ML VIAL/SYRINGE SC SCH (09:19)
--- NOTE | 2021-01-04 13:13 | DSES ---
DISCHARGE SUMMARY DATE OF ADMISSION: 12/30/2020 DATE OF DISCHARGE: 01/04/2021 DISCHARGE DIAGNOSES: 1. Metastatic colon mass to the left lung. 2. Obesity. 3. Chronic obstructive pulmonary disease (COPD). 4. Hyperlipidemia. 5. Coronary artery disease. 6. Hypertension. 7. Diabetes. 8. Postoperative day #5 status post wedge resection and thoracotomy of the left upper lobe. HOSPITAL COURSE: The patient is a 55-year-old white male who in October 2018, underwent a transverse colectomy for what turned out to be pathological stage IIIB adenocarcinoma T3 N1 M0 of the colon. He was followed with surveillance and a CT scan revealed a left upper lobe lesion in December 2019, which was 5 mm and grew over the course of surveillance to 2.5 cm. He was essentially asymptomatic and would not have known that there was something brewing in his chest. He does not complain of shortness of breath, cough, sputum production, fever, chills, sweats, or chest pain. There is no hemoptysis and certainly no weight loss. He is not a current smoker. He smoked up to three months when he was 15 and then quit. His preoperative FEV1 was 3.28, which is 85% of predicted with a DLCO of 38.95, which is 130% of predicted. The PET scan showed minimal hypermetabolic uptake with an SUV of 2.16. His was therefore brought to the operating room with a differential diagnosis of primary lung cancer versus metastatic colon disease. The mass was rather central in the left upper lobe and I could not see it with a thoracoscope and therefore, a thoracotomy was undertaken. A generous wedge resection was done with free margins. Pathologically it was metastatic colon carcinoma. He had a gratifyingly benign postoperative course. He had minimal pain with the epidural and even after weaning the epidural he has minimal pain. His chest x-ray showed his lung fully expanded to the chest wall. The epidural was weaned on the fourth postoperative day and his chest tubes were removed. DISCHARGE MEDICATIONS: He is being discharged today on his home medications, which include: 1. ProAir HFA two puffs q.i.d. p.r.n. shortness of breath. 2. Vitamin C 500 mg q. day. 3. Aspirin 81 mg q. day. 4. Atorvastatin 40 mg q. day. 5. Plavix 75 mg q. day. 6. Farxiga 10 mg q. a.m. 7. Rashida 180 mg q. day. 8. Losartan 50 mg q. day. 9. Metformin 1000 mg b.i.d. 10. Metoprolol 50 mg b.i.d. 11. Multivitamins one q. day. 12. Ozempic 1 mg subcutaneously q. week. DISCHARGE FOLLOW-UP: He will return to see me in one week with a chest x-ray and postoperative follow-up. LABORATORY DATA: His discharge hemoglobin and hematocrit are 13.5 and 40.4 with a white count of 7.1 and a platelet count of 205,000. Discharge chemistries show normal electrolytes with a potassium of 3.5, BUN and creatinine of 14 and 0.65, and glucose of 222. IMAGING DATA: His chest x-ray shows his lung fully expands to the chest wall. Costophrenic angles are sharp. There is a small apical cap of air on the left side.
== END 2021-01-04 11:08 | disposition home or self-care (01) | DRG 164 ==
LOC: M OR 06:56 → M RR INP 13:34 → M ICU 16:34 → M PCU 12-31 16:33
PROVIDERS: ADMIT Thoracic Surgery (Cardiothoracic Vascular Surgery); ATTEND Thoracic Surgery (Cardiothoracic Vascular Surgery)
PROC: 0B9G8ZZ Drainage of Left Upper Lung Lobe, Via Natural or Artificial Opening Endoscopic (ICD-10-PCS; 2020-12-30)
PROC: 0BBG0ZX Excision of Left Upper Lung Lobe, Open Approach, Diagnostic (ICD-10-PCS; principal; 2020-12-30 08:30)
DX: C78.02 Secondary malignant neoplasm of left lung (principal); Z68.42 Body mass index [BMI] 45.0-49.9, adult; E66.01 Morbid (severe) obesity due to excess calories; J44.9 Chronic obstructive pulmonary disease, unspecified; E78.5 Hyperlipidemia, unspecified; I25.10 Atherosclerotic heart disease of native coronary artery without angina pectoris; I10 Essential (primary) hypertension; G47.33 Obstructive sleep apnea (adult) (pediatric); E11.9 Type 2 diabetes mellitus without complications; Z53.31 Laparoscopic surgical procedure converted to open procedure; Z87.891 Personal history of nicotine dependence; Z95.5 Presence of coronary angioplasty implant and graft; Z86.16 Personal history of COVID-19; Z85.038 Personal history of other malignant neoplasm of large intestine; Z79.02 Long term (current) use of antithrombotics/antiplatelets

== ENCOUNTER → 2021-01-13 | Outpatient (CLI) | payer OTHER ==
[~2021-01-13] MED LIST changes: +ALPR1TAB3 PO; -LIDOCAINE 1% MDV 20ML VIAL SQ PRN; +METO1TAB7 PO; -MUPIROCIN 2% OINT 22 GM TUBE TOP ONE; +OZEM2INJ2 SC; +SM C PO; -ceFAZolin SOD 2 GM in IV 1 EA IV ONE
--- NOTE | 2021-01-13 09:16 | REPPI ---
INDICATION: R91.1 SOLITARY PULMONARY NODULE COMPARISON: 01/04/2021 TECHNIQUE: PA and lateral. FINDINGS: Mediastinum and cardiac silhouette are stable. Spmqde-R-[id number] again identified with tip in the SVC. Postsurgical pleuroparenchymal changes involving the left hemithorax remains stable. Right hemithorax is clear. No new acute process identified. IMPRESSION: Left-sided postsurgical pleuroparenchymal changes similar to prior examination. No new acute process appreciated. <Electronically signed by Federico Urena > 01/13/21 0912
== END ==
LOC: M PLAIMG 08:54
PROVIDERS: ATTEND Thoracic Surgery (Cardiothoracic Vascular Surgery)
DX: R91.1 Solitary pulmonary nodule (principal)

== ENCOUNTER → 2021-02-03 | Outpatient (CLI) | payer OTHER ==
--- NOTE | 2021-02-03 08:29 | REPPI ---
INDICATION: C78.02 SECONDARY MALIGNANT NEOPLASM OF LEFT LUNG Z48.813 COMPARISON: 01/13/2021 TECHNIQUE: PA and lateral. FINDINGS: The mediastinum and cardiac silhouette are normal. Pgoecf-U-Pujq identified with tip in the SVC. The lung malin are clear and without acute consolidation, effusion, or pneumothorax. The skeletal structures are intact and normal. IMPRESSION: No acute cardiopulmonary process. <Electronically signed by Federico Urena > 02/03/21 0840
== END ==
LOC: M PLAIMG 08:16
PROVIDERS: ATTEND Thoracic Surgery (Cardiothoracic Vascular Surgery)
DX: C78.02 Secondary malignant neoplasm of left lung (principal); Z48.813 Encounter for surgical aftercare following surgery on the respiratory system

== ENCOUNTER → 2021-06-13 | Outpatient (CLI) | payer OTHER ==
[~2021-06-13] MED LIST changes: +COVI30VI IM
--- NOTE | 2021-06-13 08:53 | REP ---
INDICATION: RADICULOPATHY, SITE UNSPECIFIED COMPARISON: None. TECHNIQUE: AP, lateral, and swimmers views. FINDINGS: Alignment and kyphosis maintained. No acute fracture/compression injury or subluxation. Moderate multilevel degenerative changes include endplate sclerosis, minimal disc space narrowing, and moderate bridging osteophytes. Paravertebral soft tissues are grossly normal. IMPRESSION: Moderate multilevel degenerative spondylosis. <Electronically signed by Federico Urena > 06/13/21 [id number]
--- NOTE | 2021-06-13 08:55 | REP ---
INDICATION: RADICULOPATHY, SITE UNSPECIFIED. COMPARISON: None. TECHNIQUE: AP, lateral, flexion/extension, bilateral oblique, swimmer's and open mouth views of the cervical spine. FINDINGS: Alignment is maintained. There is no evidence for acute fracture/compression injury or subluxation. Moderate multilevel degenerative changes include endplate sclerosis, osteophytosis and disc space narrowing primarily involving C4-5 through C6-7. Neural foramen appear patent bilaterally. Open mouth view demonstrates normal C1-C2 articulation and odontoid process. IMPRESSION: Moderate multifocal degenerative changes primarily involving C4 through C7. <Electronically signed by Federico Urena > 06/13/21 0264
--- NOTE | 2021-06-13 08:56 | REP ---
INDICATION: RADICULOPATHY, SITE UNSPECIFIED COMPARISON: None. TECHNIQUE: AP, lateral, bilateral oblique, and coned-down views of the lumbar spine. FINDINGS: Alignment and lordosis maintained. Vertebral bodies are intact. No acute fracture/compression injury or subluxation. No evidence for spondylolysis or spondylolisthesis. Relatively mild endplate sclerosis, marginal spurring and facet hypertrophy primarily involving L4-5 and L5-S1 along with mild L5-S1 disc space narrowing. IMPRESSION: Mild early moderate degenerative changes primarily involving L5-S1 and L4-5. <Electronically signed by Federico Urena > 06/13/21 0817
== END ==
LOC: M RAD 08:05
PROVIDERS: ATTEND Registered Nurse
DX: M47.814 Spondylosis without myelopathy or radiculopathy, thoracic region (principal); M50.321 Other cervical disc degeneration at C4-C5 level; M50.322 Other cervical disc degeneration at C5-C6 level; M50.323 Other cervical disc degeneration at C6-C7 level

== ENCOUNTER → 2021-08-25 | Outpatient (CLI) | payer OTHER ==
[~2021-08-25] MED LIST changes: +GASTROGRAFIN SOLUTION 30ML (Q9963) As Ordered ONE; +ISOVUE-370 76% 100ML VIAL As Ordered ONE
--- NOTE | 2021-08-25 15:43 | REP ---
INDICATION: MET COLON CA. COMPARISON: CT 12/12/2020, 09/16/2020, 06/19/2020, 03/25/2020. TECHNIQUE: Bolus 100 mL Isovue 370 scanning through the chest with coronal and sagittal reconstructions. FINDINGS: Since the previous CT patient has undergone a left upper lobe wedge resection. At 2.6 x 2.4 cm lung mass in the left upper lobe no longer present some curvilinear fibro atelectatic change in the perihilar suprahilar region on the left side. Six tends towards the periphery. Remainder of the left upper lobe and lower lobe were unremarkable. The right lung shows minor dependent atelectatic change posteriorly but no nodule, mass, pleural effusion or acute infiltrate heart is not enlarged. There is no pericardial thickening or effusion. There coronary artery calcifications. A left subclavian port catheter is seen terminating in the SVC just above the right atrium. There is no pathologic sized mediastinal, hilar, axillary or supraclavicular adenopathy. Bone windows show degenerative changes at endplates throughout the thoracic spine. Sternum, manubrium, medial clavicles, visualized portions of humeral heads and scapulae as well as the ribs were all without acute finding. IMPRESSION: 1. Status post lung wedge resection left upper lobe of the nearly 3 cm mass seen on previous CT. This mass is gone and there is some postoperative curvilinear scarring in the posterior and suprahilar regions with some stranding towards the hilum but no evidence of recurrence or new mass in this region. Right lung was clear. 2. No other significant or acute finding in the chest. <Electronically signed by Martin Bazan > 08/25/21 [id number]
--- NOTE | 2021-08-25 15:55 | REP ---
INDICATION: MET COLON CA. COMPARISON: CT 12/22/2019, 11/14/2018. TECHNIQUE: Oral Gastrografin mixture 10 mL in 290 mL flavum water for 2 doses per our bowel contrast protocol followed by scanning through the abdomen and pelvis. Coronal and sagittal reconstructions provided. FINDINGS: CT abdomen: Lung bases were discussed in the CT chest report this date. There is no hiatal hernia. Stomach filled with the some retained food and oral contrast and unremarkable. See no hepatomegaly, splenomegaly, hepatic or splenic mass, intrahepatic biliary dilatation or adjacent ascites. There is a splenule adjacent to the medial margin of the spleen just be low the splenic hilum. Gallbladder partially contracted without calcified stone or mass. Adrenal glands are normal. The visualized pancreas was unremarkable. The aorta has atherosclerotic calcifications without aneurysm or dissection. No periaortic, other retroperitoneal or mesenteric pathologic sized lymphadenopathy. Small bowel loops show oral contrast without wall thickening, mesenteric inflammatory changes or mass. No dilatation. Stool and gas are seen throughout the colon. No sign of colitis, diverticulitis stricture or mass in the abdomen proper. Kidneys show perinephric stranding similar to the previous study no hydronephrosis, solid mass or stone. There is an upper pole cyst on the right unchanged in less than a cm. Anastomotic suture line in the mid abdomen as before from partial colectomy with no evidence of wall thickening, inflammatory change in the pericolonic fat or mass. No mesenteric or other retroperitoneal adenopathy. Bone windows show marginal osteophytes more in the thoracic and lumbar region but no destructive lesion or compression deformities. The visualized lower ribs were intact. CT pelvis: The sacrum, pelvis, hips and SI joints show some minor degenerative changes but no destructive lesion or fracture. Colonic segments in the pelvis were unremarkable bladder is partially filled with the contrast and urine without the dilated ureters or stone visible. No wall thickening or mass involving the bladder. No pelvic lymphadenopathy or free fluid. Small bowel loops in the pelvis were unremarkable. Appendix was not visualized but there are no inflammatory changes in the right lower quadrant. No ventral or inguinal bowel herniation, the right inguinal canal mildly distended with omental fat. Abdominal wall shows some diastasis without the ventral hernia. This is unchanged. No inguinal adenopathy. IMPRESSION: 1. No evidence of recurrence or metastatic disease from known colon carcinoma. Postoperative changes are seen from colon resection and reanastomosis. No new or acute finding. No metastatic disease in the liver, spleen, kidneys adrenal glands or mesentery. No ascites. Stable exam. <Electronically signed by Martin Bazan > 08/25/21 [id number]
== END ==
LOC: M RAD 12:42
PROVIDERS: ATTEND Specialist
DX: C18.9 Malignant neoplasm of colon, unspecified (principal)
CPT/HCPCS: 71260; 74177; J1642; Q9963; Q9967

== ENCOUNTER → 2021-11-24 | Outpatient (CLI) | payer OTHER ==
[~2021-11-24] MED LIST changes: -GASTROGRAFIN SOLUTION 30ML (Q9963) As Ordered ONE; -ISOVUE-370 76% 100ML VIAL As Ordered ONE; +LOSA100T45 PO; -LOSA100T50 PO; +ONDA-84 PO; -ONDA8TAB10 PO
[2021-11-24 08:25] LABS: CHOLESTEROL RISK RATIO 3.4 (<5); FREE T3 2.3 PG/ML (2.2-4.0); FREE T4 0.8 NG/DL (0.76-1.46); PERCENT SATURATION 20.1 % (19.7-50.0); PROSTATIC SPECIFIC AG MONITOR 0.44 NG/ML (< 4.00); THYROID STIMULATING HORMONE 1.16 uIU/ML (0.358-3.740); URIC ACID 3.9 MG/DL (3.5-7.2)
[2021-11-24 08:27] LABS: MALB URINE SIEMENS 51.8 MG/L; MAU/CREAT RATIO 42.8 MCG/MG (0.0-30.0)
[2021-11-24 10:03] LABS: FOLATE 10.5 NG/ML
== END ==
LOC: M LAB 06:52
PROVIDERS: ATTEND Family Medicine
DX: Z12.5 Encounter for screening for malignant neoplasm of prostate (principal); G62.0 Drug-induced polyneuropathy; D51.8 Other vitamin B12 deficiency anemias; D50.8 Other iron deficiency anemias; D11.9 Benign neoplasm of major salivary gland, unspecified; E78.2 Mixed hyperlipidemia; I10 Essential (primary) hypertension

== ENCOUNTER → 2022-04-09 | Outpatient (CLI) | payer OTHER ==
[~2022-04-09] MED LIST changes: +ISOVUE-370 76% 100ML VIAL As Ordered ONE
== END ==
LOC: M RAD 15:22
PROVIDERS: ATTEND Internal Medicine Medical Oncology
DX: C18.4 Malignant neoplasm of transverse colon (principal); K76.0 Fatty (change of) liver, not elsewhere classified
CPT/HCPCS: 71260; Q9967

== ENCOUNTER → 2022-05-15 | Outpatient (CLI) | payer OTHER ==
[~2022-05-15] MED LIST changes: -ISOVUE-370 76% 100ML VIAL As Ordered ONE
== END ==
LOC: M PLARAD 07:37
PROVIDERS: ATTEND Internal Medicine Medical Oncology
DX: C18.4 Malignant neoplasm of transverse colon (principal); C18.9 Malignant neoplasm of colon, unspecified; K44.9 Diaphragmatic hernia without obstruction or gangrene; M70.72 Other bursitis of hip, left hip

== ENCOUNTER → 2022-06-02 | Outpatient (CLI) | payer OTHER ==
[~2022-06-02] MED LIST changes: +DULO1CAP5; +GABA600T4; +PROHANCE 279.3MG/ML 15ML VIAL As Ordered ONE; +PROHANCE 279.3MG/ML 5ML VIAL As Ordered ONE
== END ==
LOC: M RAD 09:15
PROVIDERS: ATTEND Internal Medicine Medical Oncology
DX: C18.4 Malignant neoplasm of transverse colon (principal); C18.0 Malignant neoplasm of cecum
CPT/HCPCS: 74183; A9576

== ENCOUNTER → 2022-11-12 | Outpatient (CLI) | payer OTHER ==
[~2022-11-12] MED LIST changes: +CLOP75TA99 PO; +GASTROGRAFIN SOLUTION 30ML As Ordered ONE; +ISOVUE-370 76% 100ML VIAL As Ordered ONE; -PLAV1TAB2 PO; -PROHANCE 279.3MG/ML 15ML VIAL As Ordered ONE; -PROHANCE 279.3MG/ML 5ML VIAL As Ordered ONE
== END ==
LOC: M RAD 09:34
PROVIDERS: ATTEND Specialist
DX: D38.1 Neoplasm of uncertain behavior of trachea, bronchus and lung (principal); Z90.49 Acquired absence of other specified parts of digestive tract; K43.9 Ventral hernia without obstruction or gangrene; R16.1 Splenomegaly, not elsewhere classified; M50.30 Other cervical disc degeneration, unspecified cervical region; C18.4 Malignant neoplasm of transverse colon

== ENCOUNTER → 2022-11-26 | Outpatient (CLI) | payer OTHER ==
[~2022-11-26] MED LIST changes: +ALBU2TA PO; +CALC1TAB30 PO; -GASTROGRAFIN SOLUTION 30ML As Ordered ONE; -ISOVUE-370 76% 100ML VIAL As Ordered ONE; +SEMA1PEN2 SQ
== END ==
LOC: M LABSMTC 10:52
PROVIDERS: ATTEND Anesthesiology
DX: Z01.812 Encounter for preprocedural laboratory examination (principal); Z20.822 Contact with and (suspected) exposure to COVID-19

== ENCOUNTER 2022-12-01 06:00 | Day surgery (SDC) | payer OTHER ==
[~2022-12-01] VITALS: Ht 185.4 cm; Wt 152.0 kg
[2022-12-01] MEDS ORDERED: ALBUTEROL SULFATE 2.5MG/0.5ML INH NEB SOLN INH ONE (06:30)
[2022-12-01] MEDS ORDERED: LIDOCAINE PRES-FREE 2% 10ML AMP INH ONE (06:30)
[2022-12-01] MEDS ORDERED: THROMBIN 5,000 UNITS VIAL As Ordered ONE (07:09)
[2022-12-01] MEDS ORDERED: EPINEPHrine 1MG/10ML SYRINGE 1.5IN As Ordered ONE (07:10)
[2022-12-01] MEDS ORDERED: CETACAINE SPRAY 5GM As Ordered ONE (07:10)
[2022-12-01] MEDS ORDERED: fentaNYL 250 MCG/5 ML INJECTION As Ordered ONE (07:17)
[2022-12-01] MEDS ORDERED: MIDAZOLAM INJ 2MG/2ML VIAL As Ordered ONE (07:17)
[2022-12-01] MEDS ORDERED: ONDANSETRON 4MG 2ML VIAL As Ordered ONE (07:18)
[2022-12-01] MEDS ORDERED: LIDOCAINE 2% 100MG/5ML SDV (FOR ANES.) As Ordered ONE (07:18)
[2022-12-01] MEDS ORDERED: propofoL 200 MG/20 ML VIAL As Ordered ONE ×2 (07:18→08:37)
[2022-12-01] MEDS ORDERED: ROCURONIUM BROMIDE 50MG/5ML VIAL As Ordered ONE (07:18)
[2022-12-01] MEDS ORDERED: ACETAMINOPHEN 1000MG 100ML IV BAG As Ordered ONE (07:23)
[2022-12-01] MEDS ORDERED: METOCLOPRAMIDE INJ 10MG/2ML VIAL As Ordered ONE (08:09)
[2022-12-01] MEDS ORDERED: SUGAMMADEX SODIUM 500 MG/5 ML VIAL (BRIDION) As Ordered ONE (08:17)
[2022-12-01] MEDS ORDERED: PHENYLephrine 500MCG 5ML (100MCG/ML) SYRINGE As Ordered ONE ×3 (08:18→08:45)
[2022-12-01] MEDS ORDERED: oxyCODONE 5MG TAB PO PRN (09:00)
[2022-12-01] MEDS ORDERED: fentaNYL 100 MCG/2 ML INJECTION IV PRN (09:00)
[2022-12-01] MEDS ORDERED: ONDANSETRON 4MG 2ML VIAL IV PRN (09:00)
[2022-12-01] MEDS ORDERED: HYDROMORPHONE HCL 0.5 MG/ 0.5 ML SYRINGE IV PRN (09:00)
[2022-12-01 10:48] VITALS: BP 121/70
== END 2022-12-01 10:55 | disposition home or self-care (01) ==
LOC: M SDC 06:00
PROVIDERS: ATTEND Internal Medicine Pulmonary Disease
DX: C78.02 Secondary malignant neoplasm of left lung (principal); C18.9 Malignant neoplasm of colon, unspecified; I10 Essential (primary) hypertension; R73.03 Prediabetes; E78.00 Pure hypercholesterolemia, unspecified; G47.33 Obstructive sleep apnea (adult) (pediatric); J45.909 Unspecified asthma, uncomplicated; M19.90 Unspecified osteoarthritis, unspecified site; Z95.5 Presence of coronary angioplasty implant and graft; Z79.899 Other long term (current) drug therapy; Z79.82 Long term (current) use of aspirin; Z79.02 Long term (current) use of antithrombotics/antiplatelets; Z79.84 Long term (current) use of oral hypoglycemic drugs; Z88.8 Allergy status to other drugs, medicaments and biological substances; Z92.21 Personal history of antineoplastic chemotherapy
CPT/HCPCS: 31624; 31626; 31627; 31628; 31629; 31654; 71045; 76000; 88108; 88173; 88305; 88313; J0131; J0171; J1100; J2250; J2370; J2405; J2765; J3010; S2900

== ENCOUNTER → 2023-02-22 | Outpatient (CLI) | payer OTHER ==
[~2023-02-22] MED LIST changes: -ALBU2TA PO; +ALBU2TAB13 PO; +GASTROGRAFIN SOLUTION 30ML As Ordered ONE; +ISOVUE-370 76% 100ML VIAL As Ordered ONE; -LOSA100T45 PO; +LOSA100T46 PO; +PROC10TA5 PO
== END ==
LOC: M RAD 13:22
PROVIDERS: ATTEND Specialist
DX: C18.9 Malignant neoplasm of colon, unspecified (principal); C78.00 Secondary malignant neoplasm of unspecified lung
CPT/HCPCS: 71260; 74177; Q9963; Q9967

== ENCOUNTER → 2023-05-26 | Outpatient (REF) | payer OTHER ==
[~2023-05-26] MED LIST changes: +AMOX875T PO; -GABA600T4; +GABA600T4 PO; -GASTROGRAFIN SOLUTION 30ML As Ordered ONE; -ISOVUE-370 76% 100ML VIAL As Ordered ONE; +MAGN250T6 PO; +SEMA2PEN SQ
[2023-05-26 08:55] LABS: APPEARANCE, URINE CLEAR (CLEAR); BACTERIA, URINE AUTO NEGATIVE (NEGATIVE); BILIRUBIN, URINE AUTO NEGATIVE (NEGATIVE); BLOOD, URINE BLOOD NEGATIVE (NEGATIVE); COLOR, URINE STRAW (YELLOW); GLUCOSE, URINE (UA) AUTO 3+ mg/dL (NEGATIVE); KETONE, URINE AUTO TRACE mg/dL (NEGATIVE); LEUKOCYTE ESTERASE, URINE AUTO NEGATIVE (NEGATIVE); NITRITE, URINE AUTO NEGATIVE (NEGATIVE); PROTEIN, URINE AUTO NEGATIVE (NEGATIVE); RBC, URINE AUTO 0 /HPF (0-3); SPECIFIC GRAVITY URINE AUTO 1.032 (1.002-1.035); SQUAMOUS EPITHELIAL CELL UR AU 0 /HPF (0-6); UROBILINOGEN, URINE AUTO 0.2 mg/dL (0.0-2.0); WBC, URINE AUTO 0 /HPF (0-3)
[2023-05-26 09:23] LABS: PROSTATIC SPECIFIC AG MONITOR 0.39 NG/ML (< 4.00)
[2023-05-26 09:25] LABS: CREATININE, URINE 39.9 MG/DL
[2023-05-26 09:27] LABS: THYROID STIMULATING HORMONE 1.827 uIU/ML (0.55-4.78)
[2023-05-26 09:32] LABS: CHOLESTEROL RISK RATIO 4.31 (<5); HDL CHOLESTEROL 55.4 MG/DL (>40); LDL CHOLESTEROL 119.4 MG/DL (<100); NON-HDL-C 183.6 MG/DL
[2023-05-26 09:34] LABS: FREE T3 3.2 PG/ML (2.3-4.2)
== END ==
LOC: M LAB REF 07:57
PROVIDERS: ATTEND Registered Nurse
DX: E66.9 Obesity, unspecified (principal); Z12.5 Encounter for screening for malignant neoplasm of prostate; E11.9 Type 2 diabetes mellitus without complications

== ENCOUNTER → 2023-06-09 | Outpatient (CLI) | payer OTHER ==
[~2023-06-09] MED LIST changes: +GASTROGRAFIN SOLUTION 30ML As Ordered ONE; +ISOVUE-370 76% 100ML VIAL As Ordered ONE
== END ==
LOC: M RAD 06:39
PROVIDERS: ATTEND Internal Medicine Medical Oncology
DX: C18.9 Malignant neoplasm of colon, unspecified (principal)
CPT/HCPCS: 71260; 74177; Q9963; Q9967

== ENCOUNTER → 2023-09-08 | Outpatient (CLI) | payer OTHER ==
[~2023-09-08] MED LIST changes: +BASA100I; +EZET10TA58 PO; -ZETI10TA16 PO
== END ==
LOC: M RAD 13:15
PROVIDERS: ATTEND Internal Medicine Hematology & Oncology
DX: C18.9 Malignant neoplasm of colon, unspecified (principal); R91.1 Solitary pulmonary nodule
CPT/HCPCS: 71260; 74177; Q9963; Q9967

== ENCOUNTER 2023-12-05 10:30 | Inpatient (IN) | payer OTHER ==
[~2023-12-05] VITALS: Ht 188 cm; Wt 139.0 kg
[~2023-12-05 10:30] MED LIST changes: -BASA100I; +BASA100I SC; -DULO1CAP5; +DULO1CAP5 PO; -GASTROGRAFIN SOLUTION 30ML As Ordered ONE; -ISOVUE-370 76% 100ML VIAL As Ordered ONE; +LEVO25TA5 PO; +THERTAB52 PO
[2023-12-05 11:22] LABS: BASO % 0.3 % (0.0-1.0); EOS # 0.1 10^3/uL (0.0-0.5); EOS % 0.5 % (0.0-3.0); HEMATOCRIT 42.1 % (42.0-52.0); LYMPH # 1.5 10^3/uL (1.5-5.0); LYMPH % 10.6 % (24.0-44.0); MEAN CORPUSCULAR HEMOGLOBIN 30.3 pg (27.0-33.0); MEAN CORPUSCULAR HGB CONC 33.3 g/dl (32.0-36.5); MEAN CORPUSCULAR VOLUME 91.1 fl (80.0-96.0); MONO # 0.8 10^3/uL (0.0-0.8); MONO % 5.6 % (2.0-8.0); NEUTROPHILS # 11.8 10^3/uL (1.5-8.5); NEUTROPHILS % 82.3 % (36.0-66.0); PLATELET COUNT, AUTOMATED 178 10^3/uL (150-450); RED BLOOD COUNT 4.62 10^6/uL (4.30-6.10); WHITE BLOOD COUNT 14.3 10^3/uL (4.0-10.0)
[2023-12-05 11:28] LABS: ABG BASE EXCESS -0.5 (-2.0-2.0); ABG HCO3 22.5 MMOL/L (22.0-26.0); ABG O2 SATURATION 95.3 % (95.0-99.0); ABG PARTIAL PRESSURE CO2 32.7 mmHg (35.0-45.0); ABG PARTIAL PRESSURE O2 67.3 mmHg (75.0-100.0); ABG TOTAL CO2 23.5 MMOL/L (22.0-29.0); ABG pH (ARTERIAL) 7.456 UNITS (7.350-7.450)
[2023-12-05] MEDS: PIPERACILLIN/TAZOBACTAM SOD 4.5 GM in D5W MINI-BAG PLUS 50 ML IV ONE (11:28)
[2023-12-05] MEDS: ACETAMINOPHEN 325 MG TAB PO ONE (11:28)
[2023-12-05 11:34] LABS: INR 1.12; PROTHROMBIN TIME 14.1 SECONDS (12.5-14.5)
[2023-12-05 11:35] LABS: PARTIAL THROMBOPLASTIN TIME 30.3 SECONDS (24.8-34.2)
[2023-12-05 11:46] LABS: CK-MB VALUE MASS < 1.0 NG/ML (<3.6); LIPASE 33 U/L (12-53)
[2023-12-05] MEDS ORDERED: ISOVUE-370 76% 100ML VIAL As Ordered ONE (11:47)
[2023-12-05 11:48] LABS: AMYLASE 25 U/L (30-118); CPK CREATINE PHOSPHOKINASE 45 U/L (46-171); MB/CK RELATIVE INDEX 2.22 (< OR =4)
[2023-12-05 11:55] LABS: PROCALCITONIN 1.46 ng/ml
[2023-12-05 12:04] LABS: RSV AMPLIFICATION NEGATIVE (NEGATIVE)
[2023-12-05] MEDS: NS 2,466 ML in IV 1 EA IV STA (12:19)
[2023-12-05 12:20] LABS: APPEARANCE, URINE CLEAR (CLEAR); BACTERIA, URINE AUTO NEGATIVE (NEGATIVE); BILIRUBIN, URINE AUTO NEGATIVE (NEGATIVE); BLOOD, URINE BLOOD NEGATIVE (NEGATIVE); COLOR, URINE STRAW (YELLOW); GLUCOSE, URINE (UA) AUTO 3+ mg/dL (NEGATIVE); KETONE, URINE AUTO TRACE mg/dL (NEGATIVE); LEUKOCYTE ESTERASE, URINE AUTO NEGATIVE (NEGATIVE); NITRITE, URINE AUTO NEGATIVE (NEGATIVE); PROTEIN, URINE AUTO NEGATIVE (NEGATIVE); RBC, URINE AUTO 0 /HPF (0-3); SPECIFIC GRAVITY URINE AUTO 1.028 (1.002-1.035); SQUAMOUS EPITHELIAL CELL UR AU 0 /HPF (0-6); UROBILINOGEN, URINE AUTO 0.2 mg/dL (0.0-2.0); WBC, URINE AUTO 0 /HPF (0-3)
[2023-12-05 12:40] LABS: ALBUMIN 2.9 G/DL (3.2-5.2); ALKALINE PHOSPHATASE 123 U/L (46-116); ALT/SGPT 40 U/L (7.0-40); AST/SGOT 15 U/L (<34); BILIRUBIN,DIRECT 0.5 MG/DL (<0.4); BILIRUBIN,TOTAL 1.4 MG/DL (0.3-1.2); BLOOD UREA NITROGEN 11 MG/DL (9-23); CALCIUM LEVEL 8.4 MG/DL (8.5-10.1); CARBON DIOXIDE LEVEL 24 MMOL/L (20-31); CHLORIDE LEVEL 94 MMOL/L (98-107); CREATININE FOR GFR 0.81 MG/DL (0.70-1.30); GLOMERULAR FILTRATION RATE > 60.0 (>56); GLUCOSE, FASTING 567 MG/DL (60-100); POTASSIUM SERUM 4.6 MMOL/L (3.5-5.1); SODIUM LEVEL 126 MMOL/L (136-145); TOTAL PROTEIN 6.7 G/DL (5.7-8.2)
[2023-12-05 12:51] LABS: CK-MB VALUE MASS < 1.0 NG/ML (<3.6); CPK CREATINE PHOSPHOKINASE 44 U/L (46-171); MB/CK RELATIVE INDEX 2.27 (< OR =4)
[2023-12-05] MEDS ORDERED: HumuLIN R (REGULAR) INSULIN (NovoLIN R) **100U/ML** PER UNIT IV ONE (13:20)
[2023-12-05] MEDS: HumuLIN R (REGULAR) INSULIN (NovoLIN R) **100U/ML** PER UNIT IV ONE (13:34)
[2023-12-05] MEDS ORDERED: VANCOMYCIN HCL 2,000 MG in D5W 500 ML IV ONE (13:35)
[2023-12-05] MEDS ORDERED: MED REC IN PROGRESS XX SCH (13:40)
[2023-12-05] MEDS: CLINDAMYCIN 900 MG in IV 1 EA IV STA (13:47)
[2023-12-05] MEDS ORDERED: ONDA-84 PO (14:36)
[2023-12-05] MEDS ORDERED: ESSE250T PO (14:36)
[2023-12-05] MEDS ORDERED: GLIM1TAB4 PO (14:36)
[2023-12-05] MEDS ORDERED: MULT-6 PO (14:36)
[2023-12-05] MEDS ORDERED: HOME MED LIST COMPLETE! XX SCH (14:45)
[2023-12-05] MEDS: VANCOMYCIN HCL 1,000 MG, VIAL MATE ADAPTER 1 EACH in D5W 250 ML IV ONE ×2 (14:49→18:13)
[2023-12-05] MEDS ORDERED: MIDAZOLAM INJ 2MG/2ML VIAL As Ordered ONE (15:05)
[2023-12-05] MEDS ORDERED: fentaNYL 100 MCG/2 ML INJECTION As Ordered ONE (15:05)
[2023-12-05] MEDS ORDERED: propofoL 200 MG/20 ML VIAL As Ordered ONE (15:06)
[2023-12-05] MEDS ORDERED: LIDOCAINE 2% 100MG/5ML SDV (FOR ANES.) As Ordered ONE (15:06)
[2023-12-05] MEDS ORDERED: ONDANSETRON 4MG 2ML VIAL As Ordered ONE (15:06)
[2023-12-05] MEDS ORDERED: SUCCINYLCHOLINE 100MG/5ML SYRINGE As Ordered ONE (15:12)
[2023-12-05] MEDS ORDERED: ONDANSETRON 4MG 2ML VIAL IV PRN ×2 (15:35→16:25)
[2023-12-05] MEDS ORDERED: HYDROMORPHONE HCL 0.5 MG/ 0.5 ML SYRINGE IV PRN ×2 (15:35→16:25)
[2023-12-05] MEDS ORDERED: GLUCOSE 4GM CHEW TABLET PO PRN ×3 (15:35→16:50)
[2023-12-05] MEDS ORDERED: LR 1,000 ML IV SCH (15:35)
[2023-12-05] MEDS ORDERED: oxyCODONE 5MG TAB PO PRN ×2 (15:35→16:25)
[2023-12-05] MEDS ORDERED: DEXTROSE 50% 50ML SYRINGE IV PRN ×3 (15:35→16:50)
[2023-12-05] MEDS ORDERED: INSULIN LISPRO (NovoLOG) PER UNIT SC PRN (15:35)
[2023-12-05] MEDS ORDERED: fentaNYL 100 MCG/2 ML INJECTION IV PRN ×2 (15:35→16:25)
[2023-12-05] MEDS ORDERED: GLUCAGON INJ 1MG VIAL SC PRN ×3 (15:35→16:50)
[2023-12-05] MEDS ORDERED: ROCURONIUM BROMIDE 50MG/5ML VIAL As Ordered ONE (15:51)
[2023-12-05] MEDS: INSULIN LISPRO (NovoLOG) PER UNIT As Ordered ONE (16:16)
[2023-12-05] MEDS ORDERED: KETOROLAC 60MG 2ML VIAL As Ordered ONE (16:29)
[2023-12-05] MEDS: INSULIN LISPRO (NovoLOG) PER UNIT SC PRN (16:59)
[2023-12-05] MEDS ORDERED: ACETAMINOPHEN 1000MG 100ML IV BAG As Ordered ONE (17:02)
[2023-12-05 18:00] VITALS: BP 106/57; TEMP 99.3; O2SAT 96
[2023-12-05] MEDS: NS 1,000 ML IV SCH (18:05)
[2023-12-05] MEDS: INSULIN LISPRO (NovoLOG) PER UNIT SC SCH ×2 (18:21→20:32)
[2023-12-05 19:00] VITALS: BP 127/62; O2SAT 98
[2023-12-05] MEDS: PIPERACILLIN/TAZOBACTAM SOD 4.5 GM in D5W MINI-BAG PLUS 50 ML IV SCH (19:48)
[2023-12-05 20:00] VITALS: BP 125/63; TEMP 99; O2SAT 94
[2023-12-05] MEDS: METOPROLOL SUCC (TopROL XL) 50MG **XL** TAB PO SCH (20:32)
[2023-12-05] MEDS: LEVEMIR (INSULIN DETEMIR) 1 UNITS/0.01ML SC SCH (20:32)
[2023-12-05] MEDS: GABAPENTIN 300 MG CAP PO SCH (20:32)
[2023-12-05] MEDS: DULoxetine 30MG CAPSULE (CYMBALTA) PO SCH (20:33)
[2023-12-05 21:00] VITALS: BP 130/70; O2SAT 99
[2023-12-05] MEDS: CLINDAMYCIN 900 MG in IV 1 EA IV SCH (21:44)
[2023-12-05 22:00] VITALS: BP 138/74; O2SAT 99
[2023-12-05 23:00] VITALS: BP 137/73; O2SAT 97
[2023-12-05] MEDS: VANCOMYCIN HCL 1,000 MG, VIAL MATE ADAPTER 1 EACH in D5W 250 ML IV SCH (23:07)
[2023-12-06] VITALS (16 sets, daily range): BP systolic 122–151; BP diastolic 61–85; TEMP 96.9–103.7; O2SAT 93–96
[2023-12-06] MEDS: ACETAMINOPHEN TAB 650MG DOSE (2X325MG) PO PRN (00:47)
[2023-12-06 05:07] LABS: BASO % 0.4 % (0.0-1.0); EOS % 0.2 % (0.0-3.0); HEMATOCRIT 42.2 % (42.0-52.0); HEMOGLOBIN 14.2 g/dl (13.5-17.5); LYMPH # 0.7 10^3/uL (1.5-5.0); LYMPH % 7.2 % (24.0-44.0); MEAN CORPUSCULAR HEMOGLOBIN 30.5 pg (27.0-33.0); MEAN CORPUSCULAR HGB CONC 33.6 g/dl (32.0-36.5); MEAN CORPUSCULAR VOLUME 90.8 fl (80.0-96.0); MONO # 0.8 10^3/uL (0.0-0.8); NEUTROPHILS # 8.4 10^3/uL (1.5-8.5); PLATELET COUNT, AUTOMATED 185 10^3/uL (150-450); RED BLOOD COUNT 4.65 10^6/uL (4.30-6.10); WHITE BLOOD COUNT 10.2 10^3/uL (4.0-10.0)
[2023-12-06 05:20] LABS: ALBUMIN 2.7 G/DL (3.2-5.2); ALKALINE PHOSPHATASE 134 U/L (46-116); ALT/SGPT 36 U/L (7.0-40); AST/SGOT 20 U/L (<34); BILIRUBIN,TOTAL 1.3 MG/DL (0.3-1.2); BLOOD UREA NITROGEN 13 MG/DL (9-23); CALCIUM LEVEL 8.6 MG/DL (8.5-10.1); CARBON DIOXIDE LEVEL 20 MMOL/L (20-31); CHLORIDE LEVEL 100 MMOL/L (98-107); CREATININE FOR GFR 0.76 MG/DL (0.70-1.30); GLOMERULAR FILTRATION RATE > 60.0 (>56); GLUCOSE, FASTING 334 MG/DL (60-100); MAGNESIUM LEVEL 1.9 MG/DL (1.8-2.4); PHOSPHORUS LEVEL 3.3 MG/DL (2.5-4.9); SODIUM LEVEL 132 MMOL/L (136-145); TOTAL PROTEIN 6.7 G/DL (5.7-8.2)
[2023-12-06 05:22] LABS: FREE T4 1.06 NG/DL (0.89-1.76); THYROID STIMULATING HORMONE 1.225 uIU/ML (0.55-4.78)
[2023-12-06 05:27] LABS: HEMOGLOBIN A1c 8.5 % (4.0-6.0)
[2023-12-06] MEDS: ASPIRIN 81MG ENTERIC TABLET PO SCH (08:07)
[2023-12-06] MEDS: LEVEMIR (INSULIN DETEMIR) 1 UNITS/0.01ML SC SCH (08:07)
[2023-12-06] MEDS: FEXOFENADINE 60MG TAB PO SCH (08:07)
[2023-12-06] MEDS: LOSARTAN 25 MG TAB PO SCH (08:08)
[2023-12-06] MEDS: ATORVASTATIN 20 MG TAB PO SCH (08:08)
[2023-12-06] MEDS: ASCORBIC ACID 500 MG TAB PO SCH (08:08)
[2023-12-06] MEDS: CLOPIDOGREL 75 MG TAB PO SCH (08:08)
[2023-12-06] MEDS: DAPAGLIFLOZIN PROPANEDIOL 10MG TABLET (FARXIGA) PO SCH (08:08)
[2023-12-06] MEDS ORDERED: METO50TA7 PO (09:49)
[2023-12-06] MEDS ORDERED: LOSA50TA28 PO (10:53)
[2023-12-06] MEDS: LACTOBACILLUS ACIDOPHILUS CAP (BACID) PO SCH (13:09)
[2023-12-06] MEDS ORDERED: SALIVA SUBSTITUTE(MOUTHKOTE) BTL MT PRN (13:25)
[2023-12-06] MEDS: VANCOMYCIN HCL 1,000 MG, VIAL MATE ADAPTER 1 EACH in D5W 250 ML IV SCH (15:42)
[2023-12-06] MEDS: METOPROLOL TART 50 MG TAB PO SCH (21:56)
[2023-12-07] VITALS (7 sets, daily range): BP systolic 128–145; BP diastolic 66–81; TEMP 97.2–99; O2SAT 93–98
[2023-12-07 04:55] LABS: HEMATOCRIT 40.3 % (42.0-52.0); HEMOGLOBIN 13.6 g/dl (13.5-17.5); MEAN CORPUSCULAR HEMOGLOBIN 30.6 pg (27.0-33.0); MEAN CORPUSCULAR HGB CONC 33.7 g/dl (32.0-36.5); MEAN CORPUSCULAR VOLUME 90.6 fl (80.0-96.0); PLATELET COUNT, AUTOMATED 231 10^3/uL (150-450); RED BLOOD COUNT 4.45 10^6/uL (4.30-6.10); WHITE BLOOD COUNT 9.4 10^3/uL (4.0-10.0)
[2023-12-07 05:21] LABS: BLOOD UREA NITROGEN 17 MG/DL (9-23); CALCIUM LEVEL 8.4 MG/DL (8.5-10.1); CARBON DIOXIDE LEVEL 22 MMOL/L (20-31); CHLORIDE LEVEL 100 MMOL/L (98-107); CREATININE FOR GFR 0.74 MG/DL (0.70-1.30); GLOMERULAR FILTRATION RATE > 60.0 (>56); GLUCOSE, FASTING 202 MG/DL (60-100); MAGNESIUM LEVEL 2.4 MG/DL (1.8-2.4); POTASSIUM SERUM 3.5 MMOL/L (3.5-5.1); SODIUM LEVEL 134 MMOL/L (136-145)
[2023-12-07] MEDS: LOPERAMIDE 2 MG CAPLET PO PRN (06:34)
[2023-12-08 04:18] VITALS: BP 153/82; TEMP 97.3; O2SAT 97
[2023-12-08 05:56] LABS: BASO % 0.4 % (0.0-1.0); EOS # 0.4 10^3/uL (0.0-0.5); EOS % 5.2 % (0.0-3.0); HEMATOCRIT 38.3 % (42.0-52.0); HEMOGLOBIN 12.9 g/dl (13.5-17.5); LYMPH # 0.8 10^3/uL (1.5-5.0); LYMPH % 10.7 % (24.0-44.0); MEAN CORPUSCULAR HEMOGLOBIN 30.1 pg (27.0-33.0); MEAN CORPUSCULAR HGB CONC 33.7 g/dl (32.0-36.5); MEAN CORPUSCULAR VOLUME 89.5 fl (80.0-96.0); MONO % 13.4 % (2.0-8.0); NEUTROPHILS # 5.1 10^3/uL (1.5-8.5); NEUTROPHILS % 69.6 % (36.0-66.0); PLATELET COUNT, AUTOMATED 238 10^3/uL (150-450); RED BLOOD COUNT 4.28 10^6/uL (4.30-6.10); WHITE BLOOD COUNT 7.3 10^3/uL (4.0-10.0)
[2023-12-08 06:32] LABS: ALBUMIN 2.2 G/DL (3.2-5.2); ALKALINE PHOSPHATASE 147 U/L (46-116); ALT/SGPT 36 U/L (7.0-40); AST/SGOT 38 U/L (<34); BILIRUBIN,TOTAL 0.5 MG/DL (0.3-1.2); BLOOD UREA NITROGEN 18 MG/DL (9-23); CALCIUM LEVEL 8.2 MG/DL (8.5-10.1); CARBON DIOXIDE LEVEL 25 MMOL/L (20-31); CHLORIDE LEVEL 100 MMOL/L (98-107); CREATININE FOR GFR 0.95 MG/DL (0.70-1.30); GLOMERULAR FILTRATION RATE > 60.0 (>56); GLUCOSE, FASTING 282 MG/DL (60-100); MAGNESIUM LEVEL 2.2 MG/DL (1.8-2.4); POTASSIUM SERUM 3.2 MMOL/L (3.5-5.1); SODIUM LEVEL 133 MMOL/L (136-145); TOTAL PROTEIN 6.1 G/DL (5.7-8.2)
[2023-12-08 08:01] VITALS: BP 145/71; TEMP 97.6; O2SAT 96
[2023-12-08] MEDS: LEVEMIR (INSULIN DETEMIR) 1 UNITS/0.01ML SC SCH (09:02)
[2023-12-08] MEDS: VANCOMYCIN HCL 750 MG, VIAL MATE ADAPTER 1 EACH in D5W 250 ML IV SCH (11:24)
[2023-12-08 12:00] VITALS: BP 156/85; TEMP 98.5; O2SAT 95
[2023-12-08] MEDS: VANCOMYCIN HCL 500 MG in D5W MINI-BAG PLUS 100 ML IV SCH (12:54)
[2023-12-08] MEDS: PIPERACILLIN/TAZOBACTAM SOD 4.5 GM in D5W MINI-BAG PLUS 50 ML IV SCH (13:57)
[2023-12-08 17:47] VITALS: BP 145/73; TEMP 98.4; O2SAT 94
[2023-12-08] MEDS: POTASSIUM CHLORIDE 10MEQ SR TABLET PO ONE (18:32)
[2023-12-08 19:30] VITALS: BP 143/80; TEMP 97.2; O2SAT 93
[2023-12-09 00:17] VITALS: BP 146/88; TEMP 97.6; O2SAT 94
[2023-12-09 04:17] VITALS: BP 142/80; TEMP 97.6; O2SAT 95
[2023-12-09 05:41] LABS: HEMOGLOBIN 13.2 g/dl (13.5-17.5); MEAN CORPUSCULAR HEMOGLOBIN 30.2 pg (27.0-33.0); MEAN CORPUSCULAR HGB CONC 33.8 g/dl (32.0-36.5); MEAN CORPUSCULAR VOLUME 89.2 fl (80.0-96.0); PLATELET COUNT, AUTOMATED 263 10^3/uL (150-450); RED BLOOD COUNT 4.37 10^6/uL (4.30-6.10); WHITE BLOOD COUNT 6.8 10^3/uL (4.0-10.0)
[2023-12-09 06:09] LABS: BLOOD UREA NITROGEN 13 MG/DL (9-23); CALCIUM LEVEL 8.3 MG/DL (8.5-10.1); CARBON DIOXIDE LEVEL 25 MMOL/L (20-31); CHLORIDE LEVEL 103 MMOL/L (98-107); CREATININE FOR GFR 0.93 MG/DL (0.70-1.30); GLOMERULAR FILTRATION RATE > 60.0 (>56); GLUCOSE, FASTING 244 MG/DL (60-100); MAGNESIUM LEVEL 2.1 MG/DL (1.8-2.4); POTASSIUM SERUM 3.4 MMOL/L (3.5-5.1); SODIUM LEVEL 136 MMOL/L (136-145)
[2023-12-09 08:00] VITALS: BP 170/83; TEMP 97.5; O2SAT 96
[2023-12-09] MEDS: MORPHINE 2 MG/ML 1ML VIAL IV PRN (08:30)
[2023-12-09] MEDS: POTASSIUM CHLORIDE 10MEQ SR TABLET PO ONE (08:36)
[2023-12-09 12:43] VITALS: BP 141/88; TEMP 98.8; O2SAT 92
[2023-12-09 14:00] VITALS: BP 147/90; TEMP 99; O2SAT 91
[2023-12-09] MEDS: LEVEMIR (INSULIN DETEMIR) 1 UNITS/0.01ML SC SCH (20:08)
[2023-12-09 20:17] VITALS: BP 132/88; TEMP 98.4; O2SAT 94
[2023-12-10 04:20] VITALS: BP 167/95; TEMP 97.5; O2SAT 94
[2023-12-10 07:09] LABS: HEMATOCRIT 40.9 % (42.0-52.0); HEMOGLOBIN 13.5 g/dl (13.5-17.5); MEAN CORPUSCULAR HEMOGLOBIN 29.8 pg (27.0-33.0); MEAN CORPUSCULAR VOLUME 90.3 fl (80.0-96.0); PLATELET COUNT, AUTOMATED 294 10^3/uL (150-450); RED BLOOD COUNT 4.53 10^6/uL (4.30-6.10); WHITE BLOOD COUNT 8.9 10^3/uL (4.0-10.0)
[2023-12-10 07:31] LABS: BLOOD UREA NITROGEN 9 MG/DL (9-23); CALCIUM LEVEL 8.4 MG/DL (8.5-10.1); CARBON DIOXIDE LEVEL 26 MMOL/L (20-31); CHLORIDE LEVEL 104 MMOL/L (98-107); CREATININE FOR GFR 0.92 MG/DL (0.70-1.30); GLOMERULAR FILTRATION RATE > 60.0 (>56); GLUCOSE, FASTING 253 MG/DL (60-100); MAGNESIUM LEVEL 1.8 MG/DL (1.8-2.4); POTASSIUM SERUM 3.3 MMOL/L (3.5-5.1); SODIUM LEVEL 138 MMOL/L (136-145)
[2023-12-10 14:00] VITALS: BP 149/89; TEMP 98.1; O2SAT 90
[2023-12-10] MEDS: POTASSIUM CHLORIDE 10MEQ SR TABLET PO ONE (15:23)
[2023-12-10 21:00] VITALS: BP 155/94; TEMP 96.6; O2SAT 92
[2023-12-10 21:15] VITALS: O2SAT 95
[2023-12-10] MEDS: LEVEMIR (INSULIN DETEMIR) 1 UNITS/0.01ML SC SCH (21:45)
[2023-12-11 05:50] VITALS: BP 156/90; TEMP 97; O2SAT 93
[2023-12-11 06:26] LABS: HEMATOCRIT 42.4 % (42.0-52.0); HEMOGLOBIN 13.8 g/dl (13.5-17.5); MEAN CORPUSCULAR HEMOGLOBIN 29.7 pg (27.0-33.0); MEAN CORPUSCULAR HGB CONC 32.5 g/dl (32.0-36.5); MEAN CORPUSCULAR VOLUME 91.4 fl (80.0-96.0); PLATELET COUNT, AUTOMATED 301 10^3/uL (150-450); RED BLOOD COUNT 4.64 10^6/uL (4.30-6.10); WHITE BLOOD COUNT 11.4 10^3/uL (4.0-10.0)
[2023-12-11 06:54] LABS: BLOOD UREA NITROGEN 9 MG/DL (9-23); CALCIUM LEVEL 8.8 MG/DL (8.5-10.1); CARBON DIOXIDE LEVEL 30 MMOL/L (20-31); CHLORIDE LEVEL 101 MMOL/L (98-107); GLOMERULAR FILTRATION RATE > 60.0 (>56); GLUCOSE, FASTING 246 MG/DL (60-100); MAGNESIUM LEVEL 1.9 MG/DL (1.8-2.4); POTASSIUM SERUM 3.8 MMOL/L (3.5-5.1); SODIUM LEVEL 138 MMOL/L (136-145)
[2023-12-11 14:00] VITALS: BP 156/87; TEMP 97.9; O2SAT 93
[2023-12-11 20:27] VITALS: BP 155/87; TEMP 97.5; O2SAT 95
[2023-12-12 06:47] VITALS: BP 149/97; TEMP 98; O2SAT 93
[2023-12-12 06:57] LABS: HEMATOCRIT 40.8 % (42.0-52.0); HEMOGLOBIN 13.4 g/dl (13.5-17.5); MEAN CORPUSCULAR HEMOGLOBIN 29.8 pg (27.0-33.0); MEAN CORPUSCULAR HGB CONC 32.8 g/dl (32.0-36.5); MEAN CORPUSCULAR VOLUME 90.9 fl (80.0-96.0); PLATELET COUNT, AUTOMATED 302 10^3/uL (150-450); RED BLOOD COUNT 4.49 10^6/uL (4.30-6.10); WHITE BLOOD COUNT 12.9 10^3/uL (4.0-10.0)
[2023-12-12 07:22] LABS: BLOOD UREA NITROGEN 9 MG/DL (9-23); CALCIUM LEVEL 8.3 MG/DL (8.5-10.1); CARBON DIOXIDE LEVEL 28 MMOL/L (20-31); CHLORIDE LEVEL 102 MMOL/L (98-107); CREATININE FOR GFR 0.91 MG/DL (0.70-1.30); GLOMERULAR FILTRATION RATE > 60.0 (>56); GLUCOSE, FASTING 183 MG/DL (60-100); MAGNESIUM LEVEL 1.7 MG/DL (1.8-2.4); SODIUM LEVEL 138 MMOL/L (136-145)
[2023-12-12] MEDS: MAG SULF 1GM/100ML (MAG RUN) 1 GM in IV 1 EA IV ONE (10:05)
[2023-12-12 14:00] VITALS: TEMP 97.7; O2SAT 95
[2023-12-12 20:38] VITALS: TEMP 98.4
[2023-12-12 20:39] VITALS: BP 140/79; TEMP 99; O2SAT 94
[2023-12-13 00:02] VITALS: O2SAT 95
[2023-12-13 05:01] VITALS: BP 138/87; TEMP 98.1; O2SAT 93
[2023-12-13 05:53] LABS: HEMOGLOBIN 13.5 g/dl (13.5-17.5); MEAN CORPUSCULAR HEMOGLOBIN 29.5 pg (27.0-33.0); MEAN CORPUSCULAR HGB CONC 32.1 g/dl (32.0-36.5); MEAN CORPUSCULAR VOLUME 91.7 fl (80.0-96.0); PLATELET COUNT, AUTOMATED 296 10^3/uL (150-450); RED BLOOD COUNT 4.58 10^6/uL (4.30-6.10)
[2023-12-13 06:22] LABS: BLOOD UREA NITROGEN 9 MG/DL (9-23); CALCIUM LEVEL 8.6 MG/DL (8.5-10.1); CARBON DIOXIDE LEVEL 30 MMOL/L (20-31); CHLORIDE LEVEL 102 MMOL/L (98-107); CREATININE FOR GFR 0.98 MG/DL (0.70-1.30); GLOMERULAR FILTRATION RATE > 60.0 (>56); GLUCOSE, FASTING 203 MG/DL (60-100); MAGNESIUM LEVEL 1.8 MG/DL (1.8-2.4); POTASSIUM SERUM 3.4 MMOL/L (3.5-5.1); SODIUM LEVEL 139 MMOL/L (136-145)
[2023-12-13 09:34] VITALS: BP 150/58
[2023-12-13] MEDS: POTASSIUM CHLORIDE 10MEQ SR TABLET PO ONE (09:36)
[2023-12-13] MEDS: DIAPER RELIEF PASTE (DESITIN) 60GM TOP SCH (09:37)
[2023-12-13 15:00] VITALS: BP 151/84; TEMP 97.7; O2SAT 93
[2023-12-13 21:17] VITALS: BP 150/88; TEMP 98.8; O2SAT 95
[2023-12-14 00:03] VITALS: BP 150/96; TEMP 97.3; O2SAT 96
[2023-12-14 02:33] VITALS: BP 149/94; TEMP 97.7; O2SAT 96
[2023-12-14] MEDS: NS 500 ML IV STA (02:44)
[2023-12-14 06:00] VITALS: BP 155/98; TEMP 97.4; O2SAT 93
[2023-12-14 06:09] LABS: BASO # 0.1 10^3/uL (0.0-0.2); BASO % 0.5 % (0.0-1.0); EOS # 0.4 10^3/uL (0.0-0.5); EOS % 3.2 % (0.0-3.0); HEMATOCRIT 39.6 % (42.0-52.0); HEMOGLOBIN 12.9 g/dl (13.5-17.5); LYMPH # 1.7 10^3/uL (1.5-5.0); LYMPH % 12.6 % (24.0-44.0); MEAN CORPUSCULAR HEMOGLOBIN 29.9 pg (27.0-33.0); MEAN CORPUSCULAR HGB CONC 32.6 g/dl (32.0-36.5); MEAN CORPUSCULAR VOLUME 91.7 fl (80.0-96.0); MONO # 0.7 10^3/uL (0.0-0.8); MONO % 5.3 % (2.0-8.0); NEUTROPHILS # 10.6 10^3/uL (1.5-8.5); PLATELET COUNT, AUTOMATED 281 10^3/uL (150-450); RED BLOOD COUNT 4.32 10^6/uL (4.30-6.10); WHITE BLOOD COUNT 13.7 10^3/uL (4.0-10.0)
[2023-12-14 06:28] LABS: BLOOD UREA NITROGEN 10 MG/DL (9-23); CALCIUM LEVEL 8.4 MG/DL (8.5-10.1); CARBON DIOXIDE LEVEL 30 MMOL/L (20-31); CHLORIDE LEVEL 105 MMOL/L (98-107); CREATININE FOR GFR 0.89 MG/DL (0.70-1.30); GLOMERULAR FILTRATION RATE > 60.0 (>56); GLUCOSE, FASTING 186 MG/DL (60-100); POTASSIUM SERUM 3.3 MMOL/L (3.5-5.1); SODIUM LEVEL 140 MMOL/L (136-145)
[2023-12-14] MEDS: POTASSIUM CHLORIDE 10MEQ SR TABLET PO SCH (08:21)
[2023-12-14 14:00] VITALS: BP 142/83; TEMP 98.2; O2SAT 91
[2023-12-14] MEDS: AMPICILLIN SOD/SULBACTAM SOD 3 GM in D5W MINI-BAG PLUS 100 ML IV SCH (17:18)
[2023-12-14 20:22] VITALS: BP 140/81; TEMP 98.1; O2SAT 93
[2023-12-15 05:48] VITALS: BP 157/96; TEMP 97.5; O2SAT 94
[2023-12-15 07:49] LABS: BASO # 0.1 10^3/uL (0.0-0.2); BASO % 0.5 % (0.0-1.0); EOS # 0.4 10^3/uL (0.0-0.5); HEMATOCRIT 38.9 % (42.0-52.0); HEMOGLOBIN 12.7 g/dl (13.5-17.5); LYMPH # 1.5 10^3/uL (1.5-5.0); LYMPH % 12.1 % (24.0-44.0); MEAN CORPUSCULAR HEMOGLOBIN 29.8 pg (27.0-33.0); MEAN CORPUSCULAR HGB CONC 32.6 g/dl (32.0-36.5); MEAN CORPUSCULAR VOLUME 91.3 fl (80.0-96.0); MONO # 0.7 10^3/uL (0.0-0.8); MONO % 5.4 % (2.0-8.0); NEUTROPHILS # 9.9 10^3/uL (1.5-8.5); NEUTROPHILS % 78.1 % (36.0-66.0); PLATELET COUNT, AUTOMATED 258 10^3/uL (150-450); RED BLOOD COUNT 4.26 10^6/uL (4.30-6.10); WHITE BLOOD COUNT 12.6 10^3/uL (4.0-10.0)
[2023-12-15 08:30] LABS: BLOOD UREA NITROGEN 8 MG/DL (9-23); CARBON DIOXIDE LEVEL 30 MMOL/L (20-31); CHLORIDE LEVEL 104 MMOL/L (98-107); CREATININE FOR GFR 0.79 MG/DL (0.70-1.30); GLOMERULAR FILTRATION RATE > 60.0 (>56); GLUCOSE, FASTING 200 MG/DL (60-100); MAGNESIUM LEVEL 1.5 MG/DL (1.8-2.4); POTASSIUM SERUM 3.6 MMOL/L (3.5-5.1); SODIUM LEVEL 139 MMOL/L (136-145)
[2023-12-15 14:00] VITALS: BP 153/95; TEMP 97.5; O2SAT 94
[2023-12-15 20:40] VITALS: BP 115/94; TEMP 97.9; O2SAT 93
[2023-12-15] MEDS: MAGNESIUM OXIDE 400MG TAB (MAG-OX) PO SCH (21:02)
[2023-12-15] MEDS: MAG SULF 1GM/100ML (MAG RUN) 1 GM in IV 1 EA IV SCH (21:10)
[2023-12-15 22:22] VITALS: O2SAT 96
[2023-12-16] VITALS (10 sets, daily range): BP systolic 142–180; BP diastolic 79–122; TEMP 96.6–97.9; O2SAT 92–96
[2023-12-16 06:17] LABS: BASO # 0.1 10^3/uL (0.0-0.2); BASO % 0.7 % (0.0-1.0); EOS # 0.3 10^3/uL (0.0-0.5); HEMATOCRIT 39.6 % (42.0-52.0); HEMOGLOBIN 12.7 g/dl (13.5-17.5); LYMPH # 1.7 10^3/uL (1.5-5.0); LYMPH % 15.3 % (24.0-44.0); MEAN CORPUSCULAR HEMOGLOBIN 29.5 pg (27.0-33.0); MEAN CORPUSCULAR HGB CONC 32.1 g/dl (32.0-36.5); MEAN CORPUSCULAR VOLUME 92.1 fl (80.0-96.0); MONO # 0.7 10^3/uL (0.0-0.8); MONO % 5.9 % (2.0-8.0); NEUTROPHILS # 8.3 10^3/uL (1.5-8.5); NEUTROPHILS % 74.2 % (36.0-66.0); PLATELET COUNT, AUTOMATED 248 10^3/uL (150-450); WHITE BLOOD COUNT 11.2 10^3/uL (4.0-10.0)
[2023-12-16] MEDS: diphenhydrAMINE 25MG CAP PO ONE (06:20)
[2023-12-16 06:42] LABS: BLOOD UREA NITROGEN 9 MG/DL (9-23); CALCIUM LEVEL 8.5 MG/DL (8.5-10.1); CARBON DIOXIDE LEVEL 29 MMOL/L (20-31); CHLORIDE LEVEL 104 MMOL/L (98-107); CREATININE FOR GFR 0.82 MG/DL (0.70-1.30); GLOMERULAR FILTRATION RATE > 60.0 (>56); GLUCOSE, FASTING 191 MG/DL (60-100); MAGNESIUM LEVEL 1.9 MG/DL (1.8-2.4); POTASSIUM SERUM 4.4 MMOL/L (3.5-5.1); SODIUM LEVEL 140 MMOL/L (136-145)
[2023-12-16] MEDS ORDERED: CETIRIZINE (ZyrTEC) 10 MG TAB PO SCH (09:00)
[2023-12-16] MEDS ORDERED: ePHEDrine SULFATE 25 MG/5 ML(5MG/ML) SYRINGE As Ordered ONE (16:21)
[2023-12-16] MEDS ORDERED: ONDANSETRON 4MG 2ML VIAL IV PRN (16:25)
[2023-12-16] MEDS ORDERED: MORPHINE 2 MG/ML 1ML VIAL IV PRN (16:25)
[2023-12-16] MEDS: fentaNYL 100 MCG/2 ML INJECTION IV PRN (16:55)
[2023-12-16] MEDS: oxyCODONE 5MG TAB PO PRN (17:20)
[2023-12-16] MEDS: METOPROLOL TART 25 MG TABLET PO ONE (22:00)
[2023-12-17] VITALS (7 sets, daily range): BP systolic 110–170; BP diastolic 80–101; TEMP 97.3–98.1; O2SAT 91–95
[2023-12-17 06:11] LABS: BASO # 0.1 10^3/uL (0.0-0.2); BASO % 0.7 % (0.0-1.0); EOS # 0.1 10^3/uL (0.0-0.5); EOS % 0.8 % (0.0-3.0); HEMATOCRIT 37.6 % (42.0-52.0); LYMPH # 1.8 10^3/uL (1.5-5.0); LYMPH % 14.2 % (24.0-44.0); MEAN CORPUSCULAR HEMOGLOBIN 29.4 pg (27.0-33.0); MEAN CORPUSCULAR HGB CONC 31.9 g/dl (32.0-36.5); MEAN CORPUSCULAR VOLUME 92.2 fl (80.0-96.0); MONO # 0.6 10^3/uL (0.0-0.8); MONO % 4.9 % (2.0-8.0); NEUTROPHILS # 9.9 10^3/uL (1.5-8.5); NEUTROPHILS % 78.8 % (36.0-66.0); PLATELET COUNT, AUTOMATED 283 10^3/uL (150-450); RED BLOOD COUNT 4.08 10^6/uL (4.30-6.10); WHITE BLOOD COUNT 12.5 10^3/uL (4.0-10.0)
[2023-12-17 06:46] LABS: BLOOD UREA NITROGEN 12 MG/DL (9-23); CALCIUM LEVEL 8.7 MG/DL (8.5-10.1); CARBON DIOXIDE LEVEL 30 MMOL/L (20-31); CHLORIDE LEVEL 103 MMOL/L (98-107); CREATININE FOR GFR 0.81 MG/DL (0.70-1.30); GLOMERULAR FILTRATION RATE > 60.0 (>56); GLUCOSE, FASTING 227 MG/DL (60-100); MAGNESIUM LEVEL 1.9 MG/DL (1.8-2.4); POTASSIUM SERUM 5.1 MMOL/L (3.5-5.1); SODIUM LEVEL 138 MMOL/L (136-145)
[2023-12-17] MEDS: HEPARIN SOD (PORCINE) 5000UNITS/ML 1ML VIAL/SYRINGE SC SCH (09:26)
[2023-12-18 06:10] VITALS: BP 156/104; TEMP 97.3; O2SAT 94
[2023-12-18 06:11] LABS: BASO # 0.1 10^3/uL (0.0-0.2); BASO % 1.3 % (0.0-1.0); EOS # 0.3 10^3/uL (0.0-0.5); HEMATOCRIT 35.9 % (42.0-52.0); HEMOGLOBIN 11.5 g/dl (13.5-17.5); LYMPH # 2.2 10^3/uL (1.5-5.0); LYMPH % 21.8 % (24.0-44.0); MEAN CORPUSCULAR HEMOGLOBIN 29.8 pg (27.0-33.0); MONO # 0.7 10^3/uL (0.0-0.8); MONO % 7.2 % (2.0-8.0); NEUTROPHILS # 6.5 10^3/uL (1.5-8.5); PLATELET COUNT, AUTOMATED 254 10^3/uL (150-450); RED BLOOD COUNT 3.86 10^6/uL (4.30-6.10); WHITE BLOOD COUNT 9.9 10^3/uL (4.0-10.0)
[2023-12-18 06:30] LABS: BLOOD UREA NITROGEN 13 MG/DL (9-23); CALCIUM LEVEL 8.6 MG/DL (8.5-10.1); CARBON DIOXIDE LEVEL 30 MMOL/L (20-31); CHLORIDE LEVEL 102 MMOL/L (98-107); CREATININE FOR GFR 0.82 MG/DL (0.70-1.30); GLOMERULAR FILTRATION RATE > 60.0 (>56); GLUCOSE, FASTING 265 MG/DL (60-100); MAGNESIUM LEVEL 1.8 MG/DL (1.8-2.4); POTASSIUM SERUM 4.6 MMOL/L (3.5-5.1); SODIUM LEVEL 137 MMOL/L (136-145)
[2023-12-18] MEDS: LEVEMIR (INSULIN DETEMIR) 1 UNITS/0.01ML SC SCH (09:00)
[2023-12-18 14:00] VITALS: BP 105/65; TEMP 97.9; O2SAT 96
[2023-12-18 20:03] VITALS: BP 156/95; TEMP 97.7; O2SAT 94
[2023-12-19 05:12] VITALS: BP 140/99; TEMP 97.5; O2SAT 96
[2023-12-19 06:43] LABS: BASO # 0.2 10^3/uL (0.0-0.2); BASO % 1.5 % (0.0-1.0); EOS # 0.3 10^3/uL (0.0-0.5); EOS % 2.3 % (0.0-3.0); HEMATOCRIT 34.7 % (42.0-52.0); HEMOGLOBIN 11.1 g/dl (13.5-17.5); LYMPH # 2.5 10^3/uL (1.5-5.0); LYMPH % 20.5 % (24.0-44.0); MEAN CORPUSCULAR HEMOGLOBIN 29.8 pg (27.0-33.0); MEAN CORPUSCULAR VOLUME 93.3 fl (80.0-96.0); MONO # 0.8 10^3/uL (0.0-0.8); MONO % 6.8 % (2.0-8.0); NEUTROPHILS # 8.2 10^3/uL (1.5-8.5); NEUTROPHILS % 68.1 % (36.0-66.0); PLATELET COUNT, AUTOMATED 268 10^3/uL (150-450); RED BLOOD COUNT 3.72 10^6/uL (4.30-6.10)
[2023-12-19 07:19] LABS: BLOOD UREA NITROGEN 19 MG/DL (9-23); CALCIUM LEVEL 8.4 MG/DL (8.5-10.1); CARBON DIOXIDE LEVEL 29 MMOL/L (20-31); CHLORIDE LEVEL 102 MMOL/L (98-107); GLOMERULAR FILTRATION RATE > 60.0 (>56); GLUCOSE, FASTING 301 MG/DL (60-100); MAGNESIUM LEVEL 1.7 MG/DL (1.8-2.4); POTASSIUM SERUM 4.6 MMOL/L (3.5-5.1); SODIUM LEVEL 136 MMOL/L (136-145)
[2023-12-19] MEDS: LEVEMIR (INSULIN DETEMIR) 1 UNITS/0.01ML SC SCH (09:00)
[2023-12-19] MEDS: MAG SULF 1GM/100ML (MAG RUN) 1 GM in IV 1 EA IV ONE (09:39)
[2023-12-19] MEDS: INSULIN LISPRO (NovoLOG) PER UNIT SC SCH ×2 (09:39→12:00)
[2023-12-19 14:00] VITALS: BP 123/76; TEMP 97.9; O2SAT 97
[2023-12-19] MEDS: MORPHINE 4 MG/ML 1ML VIAL IV PRN (16:39)
[2023-12-19 22:11] VITALS: BP 123/75; TEMP 98.1; O2SAT 96
[2023-12-20] VITALS (26 sets, daily range): BP systolic 96–148; BP diastolic 52–90; TEMP 97.2–99.3; O2SAT 73–100
[2023-12-20 06:24] LABS: BASO # 0.3 10^3/uL (0.0-0.2); BASO % 1.5 % (0.0-1.0); EOS # 0.4 10^3/uL (0.0-0.5); EOS % 2.5 % (0.0-3.0); HEMOGLOBIN 9.9 g/dl (13.5-17.5); LYMPH # 3.5 10^3/uL (1.5-5.0); LYMPH % 21.4 % (24.0-44.0); MEAN CORPUSCULAR HEMOGLOBIN 29.6 pg (27.0-33.0); MEAN CORPUSCULAR HGB CONC 31.9 g/dl (32.0-36.5); MEAN CORPUSCULAR VOLUME 92.8 fl (80.0-96.0); MONO % 5.8 % (2.0-8.0); NEUTROPHILS # 11.2 10^3/uL (1.5-8.5); NEUTROPHILS % 67.9 % (36.0-66.0); PLATELET COUNT, AUTOMATED 341 10^3/uL (150-450); RED BLOOD COUNT 3.34 10^6/uL (4.30-6.10); WHITE BLOOD COUNT 16.5 10^3/uL (4.0-10.0)
[2023-12-20 06:55] LABS: BLOOD UREA NITROGEN 24 MG/DL (9-23); CALCIUM LEVEL 8.3 MG/DL (8.5-10.1); CARBON DIOXIDE LEVEL 28 MMOL/L (20-31); CHLORIDE LEVEL 101 MMOL/L (98-107); CREATININE FOR GFR 0.82 MG/DL (0.70-1.30); GLOMERULAR FILTRATION RATE > 60.0 (>56); GLUCOSE, FASTING 325 MG/DL (60-100); MAGNESIUM LEVEL 1.7 MG/DL (1.8-2.4); POTASSIUM SERUM 4.6 MMOL/L (3.5-5.1); SODIUM LEVEL 134 MMOL/L (136-145)
[2023-12-20] MEDS: INSULIN LISPRO (NovoLOG) PER UNIT SC SCH ×2 (09:12→19:13)
[2023-12-20] MEDS ORDERED: PANTOPRAZOLE SODIUM 40 MG in D5W 50 ML IV SCH (13:30)
[2023-12-20 13:36] LABS: BASO # 0.3 10^3/uL (0.0-0.2); BASO % 1.3 % (0.0-1.0); EOS # 0.3 10^3/uL (0.0-0.5); EOS % 1.3 % (0.0-3.0); HEMATOCRIT 26.1 % (42.0-52.0); HEMOGLOBIN 8.2 g/dl (13.5-17.5); LYMPH # 4.3 10^3/uL (1.5-5.0); LYMPH % 20.3 % (24.0-44.0); MEAN CORPUSCULAR HEMOGLOBIN 29.7 pg (27.0-33.0); MEAN CORPUSCULAR HGB CONC 31.4 g/dl (32.0-36.5); MEAN CORPUSCULAR VOLUME 94.6 fl (80.0-96.0); MONO # 1.1 10^3/uL (0.0-0.8); MONO % 5.2 % (2.0-8.0); NEUTROPHILS # 14.8 10^3/uL (1.5-8.5); NEUTROPHILS % 70.8 % (36.0-66.0); PLATELET COUNT, AUTOMATED 371 10^3/uL (150-450); RED BLOOD COUNT 2.76 10^6/uL (4.30-6.10)
[2023-12-20 14:24] LABS: ALBUMIN 2.2 G/DL (3.2-5.2); ALKALINE PHOSPHATASE 84 U/L (46-116); ALT/SGPT 14 U/L (7.0-40); AST/SGOT 13 U/L (<34); BILIRUBIN,DIRECT 0.2 MG/DL (<0.4); BILIRUBIN,TOTAL 0.5 MG/DL (0.3-1.2); BLOOD UREA NITROGEN 28 MG/DL (9-23); CARBON DIOXIDE LEVEL 24 MMOL/L (20-31); CHLORIDE LEVEL 100 MMOL/L (98-107); CHOLESTEROL LEVEL 151 MG/DL (<200); CHOLESTEROL RISK RATIO 4.58 (<5); CPK CREATINE PHOSPHOKINASE < 15 U/L (46-171); GLOMERULAR FILTRATION RATE > 60.0 (>56); GLUCOSE, FASTING 493 MG/DL (60-100); HDL CHOLESTEROL 32.9 MG/DL (>40); LDH LACTATE DEHYDROGENASE 170 U/L (120-246); LDL CHOLESTEROL 68.9 MG/DL (<100); NON-HDL-C 118.1 MG/DL; PHOSPHORUS LEVEL 4.2 MG/DL (2.5-4.9); POTASSIUM SERUM 5.4 MMOL/L (3.5-5.1); SODIUM LEVEL 132 MMOL/L (136-145); TOTAL PROTEIN 6.1 G/DL (5.7-8.2); TRIGLYCERIDES LEVEL 246 MG/DL (<150)
[2023-12-20] MEDS: PANTOPRAZOLE 40MG VIAL IV STA (14:29)
[2023-12-20] MEDS: INSULIN LISPRO (NovoLOG) PER UNIT SC ONE (14:30)
[2023-12-20] MEDS: PANTOPRAZOLE SODIUM 40 MG in NS 50 ML IV SCH (14:40)
[2023-12-20] MEDS: SULBACTAM SOD IV SCH (14:50)
[2023-12-20] MEDS: NS IV SCH (14:50)
[2023-12-20] MEDS: MATE ADAPTER IV SCH (14:50)
[2023-12-20] MEDS: AMPICILLIN SOD IV SCH (14:50)
[2023-12-20] MEDS: SUCRALFATE SUSP 1GM/10ML UD PO SCH (17:59)
[2023-12-20] MEDS: VANCOMYCIN HCL 1,000 MG, VIAL MATE ADAPTER 1 EACH in D5W 250 ML IV ONE ×2 (18:00→19:08)
[2023-12-20 18:27] LABS: HEMATOCRIT 26.4 % (42.0-52.0); HEMOGLOBIN 8.7 g/dl (13.5-17.5)
[2023-12-20 21:25] LABS: HEMATOCRIT 24.4 % (42.0-52.0)
[2023-12-20 21:53] LABS: BLOOD UREA NITROGEN 21 MG/DL (9-23); CALCIUM LEVEL 7.6 MG/DL (8.5-10.1); CARBON DIOXIDE LEVEL 26 MMOL/L (20-31); CHLORIDE LEVEL 102 MMOL/L (98-107); CREATININE FOR GFR 0.85 MG/DL (0.70-1.30); GLOMERULAR FILTRATION RATE > 60.0 (>56); GLUCOSE, FASTING 293 MG/DL (60-100); POTASSIUM SERUM 4.2 MMOL/L (3.5-5.1); SODIUM LEVEL 134 MMOL/L (136-145)
[2023-12-20] MEDS: CEFEPIME HCL 2 GM in D5W MINI-BAG PLUS 50 ML IV SCH (21:54)
[2023-12-21] VITALS (32 sets, daily range): BP systolic 103–144; BP diastolic 55–85; PULSE 124; TEMP 97–99.3; O2SAT 95–100
[2023-12-21 01:05] LABS: HEMATOCRIT 25.2 % (42.0-52.0); HEMOGLOBIN 8.4 g/dl (13.5-17.5)
[2023-12-21] MEDS: VANCOMYCIN HCL 1,000 MG, VIAL MATE ADAPTER 1 EACH in D5W 250 ML IV SCH (02:43)
[2023-12-21 05:22] LABS: BASO # 0.2 10^3/uL (0.0-0.2); EOS # 0.4 10^3/uL (0.0-0.5); EOS % 2.3 % (0.0-3.0); HEMATOCRIT 24.5 % (42.0-52.0); LYMPH # 2.6 10^3/uL (1.5-5.0); LYMPH % 13.4 % (24.0-44.0); MEAN CORPUSCULAR HEMOGLOBIN 30.4 pg (27.0-33.0); MEAN CORPUSCULAR HGB CONC 32.7 g/dl (32.0-36.5); MEAN CORPUSCULAR VOLUME 93.2 fl (80.0-96.0); MONO # 0.9 10^3/uL (0.0-0.8); MONO % 4.6 % (2.0-8.0); NEUTROPHILS # 14.9 10^3/uL (1.5-8.5); PLATELET COUNT, AUTOMATED 307 10^3/uL (150-450); RED BLOOD COUNT 2.63 10^6/uL (4.30-6.10); WHITE BLOOD COUNT 19.2 10^3/uL (4.0-10.0)
[2023-12-21 05:50] LABS: BLOOD UREA NITROGEN 20 MG/DL (9-23); CARBON DIOXIDE LEVEL 28 MMOL/L (20-31); CHLORIDE LEVEL 101 MMOL/L (98-107); CREATININE FOR GFR 0.84 MG/DL (0.70-1.30); GLOMERULAR FILTRATION RATE > 60.0 (>56); GLUCOSE, FASTING 239 MG/DL (60-100); MAGNESIUM LEVEL 1.6 MG/DL (1.8-2.4); POTASSIUM SERUM 4.3 MMOL/L (3.5-5.1); SODIUM LEVEL 133 MMOL/L (136-145)
[2023-12-21] MEDS: MAG SULF 1GM/100ML (MAG RUN) 1 GM in IV 1 EA IV SCH (07:00)
[2023-12-21] MEDS: LACTATED RINGER'S 1000 ML IV ONE (08:42)
[2023-12-21] MEDS: LEVEMIR (INSULIN DETEMIR) 1 UNITS/0.01ML SC SCH (13:08)
[2023-12-21 14:44] LABS: HEMATOCRIT 21.5 % (42.0-52.0)
[2023-12-21] MEDS: OCTREOTIDE ACETATE 100MCG/ML VIAL **IV ADMINISTRATION ONLY IV SCH (16:18)
[2023-12-21] MEDS: FUROSEMIDE 40MG/4ML VIAL IV ONE (16:59)
[2023-12-21] MEDS: HYDROMORPHONE HCL 0.5 MG/ 0.5 ML SYRINGE IV ONE (21:20)
[2023-12-22] VITALS (13 sets, daily range): BP systolic 123–156; BP diastolic 58–85; TEMP 96.9–99; O2SAT 95–99
[2023-12-22 05:30] LABS: BASO # 0.1 10^3/uL (0.0-0.2); BASO % 0.8 % (0.0-1.0); EOS # 0.5 10^3/uL (0.0-0.5); EOS % 2.9 % (0.0-3.0); HEMATOCRIT 22.3 % (42.0-52.0); HEMOGLOBIN 7.3 g/dl (13.5-17.5); LYMPH # 2.3 10^3/uL (1.5-5.0); LYMPH % 12.4 % (24.0-44.0); MEAN CORPUSCULAR HEMOGLOBIN 29.9 pg (27.0-33.0); MEAN CORPUSCULAR HGB CONC 32.7 g/dl (32.0-36.5); MEAN CORPUSCULAR VOLUME 91.4 fl (80.0-96.0); MONO # 1.1 10^3/uL (0.0-0.8); MONO % 5.9 % (2.0-8.0); NEUTROPHILS # 14.3 10^3/uL (1.5-8.5); NEUTROPHILS % 77.2 % (36.0-66.0); PLATELET COUNT, AUTOMATED 248 10^3/uL (150-450); RED BLOOD COUNT 2.44 10^6/uL (4.30-6.10); WHITE BLOOD COUNT 18.5 10^3/uL (4.0-10.0)
[2023-12-22 05:40] LABS: BLOOD UREA NITROGEN 19 MG/DL (9-23); CALCIUM LEVEL 7.3 MG/DL (8.5-10.1); CARBON DIOXIDE LEVEL 25 MMOL/L (20-31); CHLORIDE LEVEL 103 MMOL/L (98-107); CREATININE FOR GFR 0.84 MG/DL (0.70-1.30); GLOMERULAR FILTRATION RATE > 60.0 (>56); GLUCOSE, FASTING 278 MG/DL (60-100); MAGNESIUM LEVEL 1.7 MG/DL (1.8-2.4); POTASSIUM SERUM 4.2 MMOL/L (3.5-5.1); SODIUM LEVEL 134 MMOL/L (136-145)
[2023-12-22] MEDS: SODIUM CHLORIDE 0.9% INJ 10 ML SYR IV SCH (06:00)
[2023-12-22] MEDS ORDERED: SODIUM CHLORIDE 0.9% INJ 10 ML SYR IV PRN (09:50)
[2023-12-22 12:56] LABS: HEMATOCRIT 23.4 % (42.0-52.0); HEMOGLOBIN 7.7 g/dl (13.5-17.5); MEAN CORPUSCULAR HEMOGLOBIN 30.1 pg (27.0-33.0); MEAN CORPUSCULAR HGB CONC 32.9 g/dl (32.0-36.5); MEAN CORPUSCULAR VOLUME 91.4 fl (80.0-96.0); PLATELET COUNT, AUTOMATED 219 10^3/uL (150-450); RED BLOOD COUNT 2.56 10^6/uL (4.30-6.10); WHITE BLOOD COUNT 15.8 10^3/uL (4.0-10.0)
[2023-12-22] MEDS: PERCOCET 5MG/325MG TAB PO PRN (14:11)
[2023-12-22 14:37] LABS: IRON (FE) 76 UG/DL (65-175); TOTAL IRON BINDING CAPACITY 253 UG/DL (250-425)
[2023-12-22 14:39] LABS: VITAMIN B12 LEVEL 375 PG/ML (211-911)
[2023-12-22 14:40] LABS: FERRITIN 548.2 NG/ML (10.5-307.3)
[2023-12-22 14:41] LABS: FOLATE > 24.00 NG/ML (>5.4)
[2023-12-22] MEDS: diphenhydrAMINE 25MG CAP PO PRN (18:12)
[2023-12-22 18:39] LABS: HEMATOCRIT 23.3 % (42.0-52.0); HEMOGLOBIN 7.6 g/dl (13.5-17.5)
[2023-12-22] MEDS: LEVEMIR (INSULIN DETEMIR) 1 UNITS/0.01ML SC SCH (20:09)
[2023-12-23] VITALS (7 sets, daily range): BP systolic 136–168; BP diastolic 69–78; TEMP 97.1–98.7; O2SAT 95–99
[2023-12-23 04:42] LABS: HEMATOCRIT 23.1 % (42.0-52.0); HEMOGLOBIN 7.5 g/dl (13.5-17.5); MEAN CORPUSCULAR HEMOGLOBIN 30.2 pg (27.0-33.0); MEAN CORPUSCULAR HGB CONC 32.5 g/dl (32.0-36.5); MEAN CORPUSCULAR VOLUME 93.1 fl (80.0-96.0); PLATELET COUNT, AUTOMATED 219 10^3/uL (150-450); RED BLOOD COUNT 2.48 10^6/uL (4.30-6.10); WHITE BLOOD COUNT 15.5 10^3/uL (4.0-10.0)
[2023-12-23 05:11] LABS: BLOOD UREA NITROGEN 9 MG/DL (9-23); CALCIUM LEVEL 7.5 MG/DL (8.5-10.1); CARBON DIOXIDE LEVEL 29 MMOL/L (20-31); CHLORIDE LEVEL 103 MMOL/L (98-107); CREATININE FOR GFR 0.83 MG/DL (0.70-1.30); GLOMERULAR FILTRATION RATE > 60.0 (>56); GLUCOSE, FASTING 211 MG/DL (60-100); MAGNESIUM LEVEL 1.9 MG/DL (1.8-2.4); PHOSPHORUS LEVEL 2.9 MG/DL (2.5-4.9); SODIUM LEVEL 135 MMOL/L (136-145)
[2023-12-24] VITALS (11 sets, daily range): BP systolic 142–169; BP diastolic 71–82; TEMP 97.2–99.2; O2SAT 93–100
[2023-12-24 05:50] LABS: HEMATOCRIT 21.3 % (42.0-52.0); MEAN CORPUSCULAR HEMOGLOBIN 30.8 pg (27.0-33.0); MEAN CORPUSCULAR HGB CONC 32.4 g/dl (32.0-36.5); MEAN CORPUSCULAR VOLUME 95.1 fl (80.0-96.0); PLATELET COUNT, AUTOMATED 206 10^3/uL (150-450); RED BLOOD COUNT 2.24 10^6/uL (4.30-6.10); WHITE BLOOD COUNT 11.7 10^3/uL (4.0-10.0)
[2023-12-24 05:53] LABS: HEMOGLOBIN 6.9 g/dl (13.5-17.5)
[2023-12-24] MEDS: FUROSEMIDE 40MG/4ML VIAL IV ONE (11:56)
[2023-12-24] MEDS: DOCUSATE SODIUM 100MG CAPSULE PO SCH (12:00)
[2023-12-24] MEDS: MOM 30ML SUSPENSION UDC PO SCH (12:00)
[2023-12-24] MEDS: SENNA 8.6 MG TAB (SENOKOT) PO SCH (12:50)
[2023-12-24] MEDS: AUGMENTIN 875 MG TAB PO SCH (15:46)
[2023-12-24] MEDS: GOLYTELY SOLN 4000 ML BTL PO ONE (17:52)
[2023-12-24 18:02] LABS: HEMATOCRIT 25.7 % (42.0-52.0); HEMOGLOBIN 8.3 g/dl (13.5-17.5)
[2023-12-24 19:36] LABS: ALKALINE PHOSPHATASE 75 U/L (46-116); ALT/SGPT 9 U/L (7.0-40); AST/SGOT 13 U/L (<34); BILIRUBIN,TOTAL 0.5 MG/DL (0.3-1.2); BLOOD UREA NITROGEN 9 MG/DL (9-23); CALCIUM LEVEL 7.9 MG/DL (8.5-10.1); CARBON DIOXIDE LEVEL 32 MMOL/L (20-31); CHLORIDE LEVEL 104 MMOL/L (98-107); CREATININE FOR GFR 0.79 MG/DL (0.70-1.30); GLOMERULAR FILTRATION RATE > 60.0 (>56); GLUCOSE, FASTING 151 MG/DL (60-100); POTASSIUM SERUM 3.7 MMOL/L (3.5-5.1); SODIUM LEVEL 136 MMOL/L (136-145); TOTAL PROTEIN 5.6 G/DL (5.7-8.2)
[2023-12-25] VITALS (7 sets, daily range): BP systolic 135–168; BP diastolic 64–86; TEMP 97–98.3; O2SAT 96–99
[2023-12-25 05:30] LABS: HEMATOCRIT 26.6 % (42.0-52.0); HEMOGLOBIN 8.8 g/dl (13.5-17.5); MEAN CORPUSCULAR HEMOGLOBIN 30.4 pg (27.0-33.0); MEAN CORPUSCULAR HGB CONC 33.1 g/dl (32.0-36.5); PLATELET COUNT, AUTOMATED 231 10^3/uL (150-450); RED BLOOD COUNT 2.89 10^6/uL (4.30-6.10); WHITE BLOOD COUNT 12.1 10^3/uL (4.0-10.0)
[2023-12-25 05:54] LABS: BLOOD UREA NITROGEN 8 MG/DL (9-23); CALCIUM LEVEL 7.9 MG/DL (8.5-10.1); CARBON DIOXIDE LEVEL 32 MMOL/L (20-31); CHLORIDE LEVEL 104 MMOL/L (98-107); CREATININE FOR GFR 0.81 MG/DL (0.70-1.30); GLOMERULAR FILTRATION RATE > 60.0 (>56); GLUCOSE, FASTING 83 MG/DL (60-100); POTASSIUM SERUM 3.4 MMOL/L (3.5-5.1); SODIUM LEVEL 141 MMOL/L (136-145)
[2023-12-25] MEDS: POTASSIUM CHLORIDE 10MEQ SR TABLET PO ONE (09:29)
[2023-12-25] MEDS: PANTOPRAZOLE 40MG TAB (PROTONIX) PO SCH (09:29)
[2023-12-25] MEDS: INSULIN LISPRO (NovoLOG) PER UNIT SC SCH ×2 (18:38→20:11)
[2023-12-26] VITALS (7 sets, daily range): BP systolic 108–151; BP diastolic 55–81; TEMP 97.3–98.5; O2SAT 92–98
[2023-12-26 05:54] LABS: HEMATOCRIT 25.9 % (42.0-52.0); HEMOGLOBIN 8.4 g/dl (13.5-17.5); MEAN CORPUSCULAR HEMOGLOBIN 30.2 pg (27.0-33.0); MEAN CORPUSCULAR HGB CONC 32.4 g/dl (32.0-36.5); MEAN CORPUSCULAR VOLUME 93.2 fl (80.0-96.0); PLATELET COUNT, AUTOMATED 238 10^3/uL (150-450); RED BLOOD COUNT 2.78 10^6/uL (4.30-6.10); WHITE BLOOD COUNT 11.1 10^3/uL (4.0-10.0)
[2023-12-26] MEDS ORDERED: INSULIN LISPRO (NovoLOG) PER UNIT SC SCH (07:30)
[2023-12-27 04:57] VITALS: BP 131/73; TEMP 97; O2SAT 97
[2023-12-27 05:18] LABS: HEMATOCRIT 25.7 % (42.0-52.0); HEMOGLOBIN 8.2 g/dl (13.5-17.5); MEAN CORPUSCULAR HGB CONC 31.9 g/dl (32.0-36.5); MEAN CORPUSCULAR VOLUME 94.1 fl (80.0-96.0); PLATELET COUNT, AUTOMATED 222 10^3/uL (150-450); RED BLOOD COUNT 2.73 10^6/uL (4.30-6.10); WHITE BLOOD COUNT 8.1 10^3/uL (4.0-10.0)
[2023-12-27 05:42] LABS: ALKALINE PHOSPHATASE 108 U/L (46-116); ALT/SGPT 10 U/L (7.0-40); AST/SGOT 14 U/L (<34); BILIRUBIN,TOTAL 0.5 MG/DL (0.3-1.2); BLOOD UREA NITROGEN 8 MG/DL (9-23); CARBON DIOXIDE LEVEL 30 MMOL/L (20-31); CHLORIDE LEVEL 105 MMOL/L (98-107); CREATININE FOR GFR 0.78 MG/DL (0.70-1.30); GLOMERULAR FILTRATION RATE > 60.0 (>56); GLUCOSE, FASTING 122 MG/DL (60-100); MAGNESIUM LEVEL 1.7 MG/DL (1.8-2.4); PHOSPHORUS LEVEL 3.5 MG/DL (2.5-4.9); POTASSIUM SERUM 3.7 MMOL/L (3.5-5.1); SODIUM LEVEL 140 MMOL/L (136-145); TOTAL PROTEIN 5.8 G/DL (5.7-8.2)
[2023-12-27] MEDS: MAGNESIUM OXIDE 400MG TAB (MAG-OX) PO SCH (06:38)
[2023-12-27 08:00] VITALS: BP 157/82; TEMP 98.1; O2SAT 99
[2023-12-27 12:00] VITALS: BP 136/72; TEMP 98; O2SAT 96
[2023-12-27 16:00] VITALS: BP 114/73; TEMP 97.1; O2SAT 94
[2023-12-27 20:00] VITALS: BP 123/65; TEMP 98.6; O2SAT 96
[2023-12-28 00:46] VITALS: BP 129/60; TEMP 98.5; O2SAT 98
[2023-12-28 09:54] VITALS: BP 143/75; TEMP 97.9; O2SAT 94
[2023-12-28 10:21] VITALS: BP 143/75
[2023-12-28 16:09] VITALS: BP 133/66; TEMP 97.9; O2SAT 92
[2023-12-28] MEDS ORDERED: SUCR1TA PO (17:54)
[2023-12-28] MEDS ORDERED: AMOX875T2 PO (17:54)
[2023-12-28] MEDS ORDERED: RISATAB3 PO (17:54)
[2023-12-28] MEDS ORDERED: PANT40TA29 PO (17:54)
[2023-12-28] MEDS: NEOSPORIN TOP OINT 15GM TOP ONE (17:57)
[2023-12-28] MEDS ORDERED: PERCOCET PO (17:57)
== END 2023-12-28 18:50 | disposition home or self-care (01) | DRG 854 ==
LOC: M ED 10:30 → M ED INP 14:50 → M ICU 17:35 → M PCU 12-08 17:06 → M MSPAV 12-09 12:42 → M ICU 12-20 13:20 → M PCU 12-26 04:21
PROVIDERS: ADMIT Internal Medicine Pulmonary Disease; ATTEND Internal Medicine Nephrology
PROC: 0V9500Z Drainage of Scrotum with Drainage Device, Open Approach (ICD-10-PCS; 2023-12-05)
PROC: 0V950ZZ Drainage of Scrotum, Open Approach (ICD-10-PCS; principal; 2023-12-16 15:00)
PROC: 30233N1 Transfusion of Nonautologous Red Blood Cells into Peripheral Vein, Percutaneous Approach (ICD-10-PCS; 2023-12-20)
PROC: 0DJ08ZZ Inspection of Upper Intestinal Tract, Via Natural or Artificial Opening Endoscopic (ICD-10-PCS; 2023-12-23)
PROC: 0DJD8ZZ Inspection of Lower Intestinal Tract, Via Natural or Artificial Opening Endoscopic (ICD-10-PCS; 2023-12-25)
DX: A41.9 Sepsis, unspecified organism (principal); E87.20 Acidosis, unspecified; E87.1 Hypo-osmolality and hyponatremia; C18.4 Malignant neoplasm of transverse colon; Z68.41 Body mass index [BMI] 40.0-44.9, adult; K92.1 Melena; D62 Acute posthemorrhagic anemia; N49.3 Fournier gangrene; I25.10 Atherosclerotic heart disease of native coronary artery without angina pectoris; E11.65 Type 2 diabetes mellitus with hyperglycemia; R94.31 Abnormal electrocardiogram [ECG] [EKG]; I10 Essential (primary) hypertension; E83.42 Hypomagnesemia; K26.9 Duodenal ulcer, unspecified as acute or chronic, without hemorrhage or perforation; R55 Syncope and collapse; E66.01 Morbid (severe) obesity due to excess calories; R21 Rash and other nonspecific skin eruption; E87.5 Hyperkalemia; K44.9 Diaphragmatic hernia without obstruction or gangrene; F41.9 Anxiety disorder, unspecified; F32.A Depression, unspecified; Z90.49 Acquired absence of other specified parts of digestive tract; Z90.2 Acquired absence of lung [part of]; R65.20 Severe sepsis without septic shock; Z79.82 Long term (current) use of aspirin; Z79.4 Long term (current) use of insulin; Z79.899 Other long term (current) drug therapy; Z79.69 Long term (current) use of other immunomodulators and immunosuppressants; Z88.8 Allergy status to other drugs, medicaments and biological substances

== ENCOUNTER → 2024-01-07 | Outpatient (CLI) | payer OTHER ==
[~2024-01-07] MED LIST changes: +AMOX875T2 PO; +ESSE250T PO; +GLIM1TAB4 PO; +LOSA50TA28 PO; +METO50TA7 PO; +MULT-6 PO; +PANT40TA29 PO; +PERCOCET PO; +RISATAB3 PO; +SUCR1TA PO
[2024-01-07 11:48] LABS: HEMATOCRIT 37.7 % (42.0-52.0); HEMOGLOBIN 11.5 g/dl (13.5-17.5); MEAN CORPUSCULAR HEMOGLOBIN 28.5 pg (27.0-33.0); MEAN CORPUSCULAR HGB CONC 30.5 g/dl (32.0-36.5); MEAN CORPUSCULAR VOLUME 93.3 fl (80.0-96.0); PLATELET COUNT, AUTOMATED 439 10^3/uL (150-450); RED BLOOD COUNT 4.04 10^6/uL (4.30-6.10); WHITE BLOOD COUNT 12.7 10^3/uL (4.0-10.0)
== END ==
LOC: M LAB 11:14
PROVIDERS: ATTEND Registered Nurse
DX: K92.2 Gastrointestinal hemorrhage, unspecified (principal)

== ENCOUNTER → 2024-06-09 | Outpatient (CLI) | payer OTHER ==
[~2024-06-09] MED LIST changes: +DILT240C83; -GLIM1TAB4 PO; +GLIM1TAB84 PO
[2024-06-09 08:45] LABS: HEMOGLOBIN A1c 8.1 % (4.0-6.0)
[2024-06-09 08:51] LABS: ALBUMIN 3.4 G/DL (3.2-5.2); ALKALINE PHOSPHATASE 108 U/L (46-116); ALT/SGPT 23 U/L (7.0-40); AST/SGOT 15 U/L (<34); BILIRUBIN,TOTAL 0.5 MG/DL (0.3-1.2); BLOOD UREA NITROGEN 14 MG/DL (9-23); CALCIUM LEVEL 9.4 MG/DL (8.5-10.1); CARBON DIOXIDE LEVEL 26 MMOL/L (20-31); CHLORIDE LEVEL 106 MMOL/L (98-107); CREATININE FOR GFR 0.84 MG/DL (0.70-1.30); GLOMERULAR FILTRATION RATE > 60.0 (>56); GLUCOSE, FASTING 235 MG/DL (60-100); POTASSIUM SERUM 4.2 MMOL/L (3.5-5.1); SODIUM LEVEL 139 MMOL/L (136-145); TOTAL PROTEIN 7.3 G/DL (5.7-8.2)
== END ==
LOC: M LAB 07:33
PROVIDERS: ATTEND Registered Nurse
DX: E11.628 Type 2 diabetes mellitus with other skin complications (principal); I10 Essential (primary) hypertension

== ENCOUNTER → 2024-08-07 | Outpatient (REF) | payer OTHER ==
[~2024-08-07] MED LIST changes: +GABA-1490 PO; -GABA600T4 PO
[2024-08-07 08:39] LABS: APPEARANCE, URINE CLEAR (CLEAR); BACTERIA, URINE AUTO NEGATIVE (NEGATIVE); BILIRUBIN, URINE AUTO NEGATIVE (NEGATIVE); BLOOD, URINE BLOOD NEGATIVE (NEGATIVE); COLOR, URINE STRAW (YELLOW); GLUCOSE, URINE (UA) AUTO 3+ mg/dL (NEGATIVE); KETONE, URINE AUTO NEGATIVE (NEGATIVE); LEUKOCYTE ESTERASE, URINE AUTO NEGATIVE (NEGATIVE); MUCUS, URINE SMALL (NEGATIVE); NITRITE, URINE AUTO NEGATIVE (NEGATIVE); PROTEIN, URINE AUTO 1+ mg/dL (NEGATIVE); RBC, URINE AUTO 0 /HPF (0-3); SPECIFIC GRAVITY URINE AUTO 1.024 (1.002-1.035); SQUAMOUS EPITHELIAL CELL UR AU 0 /HPF (0-6); UROBILINOGEN, URINE AUTO 0.2 mg/dL (0.0-2.0); WBC, URINE AUTO 0 /HPF (0-3)
[2024-08-07 08:47] LABS: HEMATOCRIT 45.9 % (42.0-52.0); MEAN CORPUSCULAR HEMOGLOBIN 29.7 pg (27.0-33.0); MEAN CORPUSCULAR HGB CONC 32.7 g/dl (32.0-36.5); MEAN CORPUSCULAR VOLUME 90.9 fl (80.0-96.0); PLATELET COUNT, AUTOMATED 175 10^3/uL (150-450); RED BLOOD COUNT 5.05 10^6/uL (4.30-6.10); WHITE BLOOD COUNT 6.3 10^3/uL (4.0-10.0)
[2024-08-07 09:07] LABS: PSA SCREENING 0.32 NG/ML (< 4.00); URIC ACID 5.7 MG/DL (3.7-9.2)
[2024-08-07 09:08] LABS: HEMOGLOBIN A1c 8.5 % (4.0-6.0)
[2024-08-07 09:09] LABS: ALBUMIN 3.3 G/DL (3.2-5.2); ALKALINE PHOSPHATASE 100 U/L (46-116); ALT/SGPT 24 U/L (7.0-40); AST/SGOT 16 U/L (<34); BILIRUBIN,TOTAL 0.6 MG/DL (0.3-1.2); BLOOD UREA NITROGEN 13 MG/DL (9-23); CALCIUM LEVEL 9.8 MG/DL (8.3-10.6); CARBON DIOXIDE LEVEL 26 MMOL/L (20-31); CHLORIDE LEVEL 107 MMOL/L (98-107); CHOLESTEROL LEVEL 205 MG/DL (<200); CREATININE FOR GFR 0.81 MG/DL (0.70-1.30); CREATININE, URINE 60.1 MG/DL; GLOMERULAR FILTRATION RATE > 60.0 (>49); GLUCOSE, FASTING 246 MG/DL (74-106); HDL CHOLESTEROL 42.7 MG/DL (>40); LDL CHOLESTEROL 120.5 MG/DL (<100); MAU/CREAT RATIO 254.5 MCG/MG (0.0-30.0); NON-HDL-C 162.3 MG/DL; POTASSIUM SERUM 4.3 MMOL/L (3.5-5.1); SODIUM LEVEL 139 MMOL/L (136-145); TRIGLYCERIDES LEVEL 209 MG/DL (<150)
[2024-08-07 09:10] LABS: VITAMIN B12 LEVEL 372 PG/ML (211-911)
[2024-08-07 09:11] LABS: FREE T4 1.08 NG/DL (0.89-1.76); THYROID STIMULATING HORMONE 1.285 uIU/ML (0.55-4.78)
[2024-08-07 09:14] LABS: FREE T3 3.3 PG/ML (2.3-4.2)
== END ==
LOC: M LAB REF 08:16
PROVIDERS: ATTEND Registered Nurse
DX: E78.2 Mixed hyperlipidemia (principal); I10 Essential (primary) hypertension; E11.9 Type 2 diabetes mellitus without complications; E66.9 Obesity, unspecified; Z12.5 Encounter for screening for malignant neoplasm of prostate
CPT/HCPCS: 80053; 80061; 81001; 82043; 82607; 83036; 84439; 84443; 84481; 84550; 85027; G0103

== ENCOUNTER → 2024-08-07 | Outpatient (CLI) | payer OTHER | LOC: M RAD 08:32 | PROVIDERS: ATTEND Registered Nurse | DX: R05.3 Chronic cough (principal) ==

== ENCOUNTER → 2024-09-06 | Outpatient (CLI) | payer OTHER | LOC: M RAD 09:18 | PROVIDERS: ATTEND Internal Medicine Pulmonary Disease | DX: R91.8 Other nonspecific abnormal finding of lung field (principal) ==

== ENCOUNTER → 2024-11-14 | Outpatient (CLI) | payer OTHER ==
[~2024-11-14] MED LIST changes: +ISOVUE-370 76% 100ML VIAL As Ordered ONE
== END ==
LOC: M RAD 08:13
PROVIDERS: ATTEND Specialist
DX: C18.9 Malignant neoplasm of colon, unspecified (principal); C78.02 Secondary malignant neoplasm of left lung; Z90.2 Acquired absence of lung [part of]
CPT/HCPCS: 71260; 74177; Q9967

== ENCOUNTER → 2025-02-13 | Outpatient (CLI) | payer OTHER ==
[~2025-02-13] MED LIST changes: +JARD1TAB3; +LOSA25TA13; +MORP-137 PO; -MSIR30TA PO; +ROSU40TA81; +[UNRECOGNIZED DRUG - CODE] PO
== END ==
LOC: M RAD 08:23
PROVIDERS: ATTEND Nurse Practitioner Women's Health
DX: C18.4 Malignant neoplasm of transverse colon (principal)
CPT/HCPCS: 71260; 74177; Q9967